=== PATIENT | female | born 1930 | race Caucasian/White ===

== ENCOUNTER 2017-03-02 14:06 | Emergency (ER) | payer MEDICARE, BC ==
[~2017-03-02] VITALS: Ht 157.5 cm; Wt 74.0 kg
[~2017-03-02 14:06] MED LIST: ALDA2525 PO; AMLO5 PO; ASPI-110 PO; ESTR.625 PO; NEXI40CA PO
[2017-03-02 14:10] VITALS: BP 122/89; PULSE 97; RESP 16; TEMP 98.2; O2SAT 98
[2017-03-02] MEDS ORDERED: BACL20TA PO (14:21)
[2017-03-02] MEDS ORDERED: KETOROLAC TROMETHAMINE 60 MG/2 ML (IM) VIAL IM ONE (14:45)
--- NOTE | 2017-03-02 14:47 | PD ---
HPI Chief Complaint: Back/ Neck Pain or Injury Time Seen by Provider: 14:25 Travel History International Travel<30 days: No Contact w/Intl Traveler<30days: No Traveled to known affect area: No History of Present Illness HPI 86-year-old female with history of sciatica presents to emergency department for right-sided low back pain radiating down into the right leg. She reports similar episodes with sciatic flare. She reports that the pain is localized to the left low back and radiates down into the left buttocks to the posterior knee. She denies fever, incontinence, difficulty walking, or numbness and tingling in the extremity.. She reports that her sciatica pain is usually treated with diclofenac but her doctor recently prescribed baclofen and she stopped taking the diclofenac and the pain worsened. She reports she was not instructed to stop the diclofenac she was just confused she was allowed to take that with her baclofen. She reports she contacted her doctor's office when instructed her to come to the emergency room for a shot of Toradol. PFSH Past Medical History Medical History: Denies Significant Hx GERD: Yes Hypertension: Yes Musculoskeletal: Yes (SCIATICA) Influenza Vaccination: Yes Social History Alcohol Use: Yes (DAILY) Tobacco Use: No Substance Use: No Allergies-Medications (Allergen,Severity, Reaction): Coded Allergies: Codeine (Verified Allergy, Unknown, Nausea/Vomiting, 03/02/17) Penicillin (Verified Allergy, Unknown, Rash, 03/02/17) Sulfa (Verified Allergy, Unknown, Rash, 03/02/17) Reported Meds & Prescriptions Reported Meds & Active Scripts Active Reported Baclofen 20 Mg Tab 20 Mg PO HS Aspirin 81 (Aspirin) 81 Mg Tabdr 81 Mg PO DAILY Norvasc (Amlodipine Besylate) 5 Mg Tab 5 Mg PO DAILY Aldactazide (HCTZ/Spironolactone) 25-25 Mg Tab 1 Tab PO DAILY Premarin (Estrogens Conjugated) 0.625 Mg Tab 0.625 Mg PO DAILY Nexium (Esomeprazole DR) 40 Mg Capdr 40 Mg PO DAILY Review of Systems Except as stated in HPI: all other systems reviewed are Neg Physical Exam Narrative GENERAL: Alert, well-appearing elderly female. In no acute distress SKIN: Focused skin assessment warm/dry. HEAD: Atraumatic. Normocephalic. EYES: Pupils equal and round. No scleral icterus. No injection or drainage. ENT: No nasal bleeding or discharge. Mucous membranes pink and moist. NECK: Trachea midline. No JVD. CARDIOVASCULAR: Regular rate and rhythm. No murmur appreciated. RESPIRATORY: No accessory muscle use. Clear to auscultation. Breath sounds equal bilaterally. GASTROINTESTINAL: Abdomen soft, non-tender, nondistended. Hepatic and splenic margins not palpable. MUSCULOSKELETAL: No obvious deformities. No clubbing. No cyanosis. No edema. BACK: No midline spine tenderness. Tenderness over the left lumbar paraspinous muscles. 2+ DTRs. Normal Dorsiflexion and plantarflexion. 5 out of 5 strength and large cavities. NEUROLOGICAL: Awake and alert. No obvious cranial nerve deficits. Motor grossly within normal limits. Normal speech. PSYCHIATRIC: Appropriate mood and affect; insight and judgment normal. Data Data Last Documented VS Vital Signs Date Time Temp Pulse Resp B/P Pulse Ox O2 Delivery O2 Flow Rate FiO2 03/02/17 14:10 98.2 97 16 122/89 98 MDM Medical Decision Making Medical Screen Exam Complete: Yes Emergency Medical Condition: Yes Differential Diagnosis Sciatica, lumbar strain, herniated disc, Narrative Course 86-year-old female presents emergency department for increased sciatica pain on the left side. Patient has a long-standing history of sciatic pain usually treated with diclofenac. Her doctor recently added a muscle relaxer to her pain regimen and she was somewhat confused and stopped taking the diclofenac. The pain worsened over the last 7 days after stopping the diclofenac. She reports she called her doctor stopped today and he instructed that she come in for Toradol shot. She has no warning red flag warning signs for back pain. She is ambulating. Patient will be given a shot of Toradol. Diagnosis Primary Impression: Back pain with left-sided sciatica Referrals: Primary Care Physician Disposition: 01 DISCHARGE HOME Condition: Stable Karen Barr March 02, 2017 14:47
[2017-03-04] MEDS ORDERED: DICL25 PO (12:00)
[2017-03-08] MEDS ORDERED: DICL25 PO (14:25)
[2017-03-08] MEDS ORDERED: NEXI40CA PO (14:26)
[2017-03-31] MEDS ORDERED: TRAM50TA PO (15:16)
[2017-03-31] MEDS ORDERED: GABA300C5 PO (15:16)
[2017-04-02] MEDS ORDERED: COMMODE 3-IN-11 MIS (14:23)
== END 2017-03-02 14:55 | disposition home or self-care (01) ==
LOC: PHEFT 14:06
DX: M54.32 Sciatica, left side (principal); K21.9 Gastro-esophageal reflux disease without esophagitis; I10 Essential (primary) hypertension; Z88.0 Allergy status to penicillin; Z88.2 Allergy status to sulfonamides; Z79.82 Long term (current) use of aspirin; Z79.899 Other long term (current) drug therapy
CPT/HCPCS: 96372; 99284; J1885

== ENCOUNTER 2017-03-17 06:49 | Observation (INO) | payer MEDICARE, BC ==
[~2017-03-17] VITALS: Ht 160 cm; Wt 80.0 kg
[~2017-03-17 06:49] MED LIST changes: +BACL20TA PO; +DICL25 PO
[2017-03-17] MEDS ORDERED: LACTATED RINGER'S 1000 ML IV PRN (07:15)
[2017-03-17] MEDS ORDERED: METOPROLOL TARTRATE 25 MG TAB PO PRN (07:15)
[2017-03-17] MEDS ORDERED: SODIUM CHLOR 0.9% 1000 ML INJ 1,000 ML IV SCH (07:15)
[2017-03-17] MEDS ORDERED: POVIDONE IODINE 5% (ANTISEPSIS KIT) 4 APPLICATIONS EACH NARE PRN (07:15)
[2017-03-17] MEDS ORDERED: SODIUM CHLORID 0.9% 500 ML IV PRN (07:15)
[2017-03-17] MEDS ORDERED: VANCOMYCIN HCL 1000 MG ON-CALL/NS 250 ML IV SCH ×2 (07:15)
[2017-03-17] MEDS ORDERED: CHLORHEXIDINE GLUCONATE 2 % 1 PACK (2 CLOTHS) TOPICAL PRN (07:15)
[2017-03-17] MEDS ORDERED: INSULIN HUMAN REGULAR 1,000 UNITS/10 ML VIAL SQ PRN (07:15)
[2017-03-17 07:17] VITALS: BP 142/80; PULSE 79; RESP 16; TEMP 96; O2SAT 96
--- NOTE | 2017-03-17 07:48 | EKG ---
Date Performed: 03/17/2017 Time Performed: 07:21:25 PTAGE: 86 years EKG: Sinus rhythm PROBABLE LATERAL MYOCARDIAL INFARCTION , OF INDETERMINATE AGE Nonspecific T wave changes ABNORMAL EC G NO PREVIOUS TRACING DOCTOR: Song Jacob Interpretating Date/Time 03/17/2017 07:46:50
[2017-03-17] MEDS ORDERED: ceFAZolin 2 GM PREMIX 50 ML ONE (08:14)
[2017-03-17] MEDS ORDERED: THROMBIN (TOPICAL) 5,000 UNIT VIAL ONE (08:14)
[2017-03-17] MEDS ORDERED: GENTAMICIN SULFATE 80 MG/2 ML VIAL ONE (08:15)
[2017-03-17] MEDS ORDERED: methylPREDNISolone ACETATE 40 MG/ML VIAL ONE (08:15)
[2017-03-17] MEDS ORDERED: GELFOAM SIZE 100 ONE (08:15)
[2017-03-17] MEDS ORDERED: MIDAZOLAM HCL 2 MG/2 ML VIAL ONE (09:02)
[2017-03-17] MEDS ORDERED: ARTIFICIAL TEARS OPTH OINT 3.5 APPLIC/3.5 GM TUBO ONE (09:02)
[2017-03-17] MEDS ORDERED: fentaNYL CITRATE 250 MCG/5 ML AMP ONE (09:03)
[2017-03-17] MEDS ORDERED: ACETAMINOPHEN 1000 MG/100 ML VIAL IV ONE (09:03)
[2017-03-17] MEDS: NS + KCL 20 MEQ INJ 1,000 ML IV SCH ×2 (10:48→21:35)
[2017-03-17] MEDS ORDERED: ACETAMINOPHEN 325 MG TAB PO PRN (11:00)
[2017-03-17] MEDS ORDERED: SODIUM CHLORIDE 0.9% FLUSH 5 ML FLUSH IVF PRN (11:00)
[2017-03-17] MEDS ORDERED: MORPHINE SULFATE 4 MG/ML INJ IV PUSH PRN ×2 (11:00)
[2017-03-17] MEDS ORDERED: ACETAMINOPHEN/HYDROcodone 325 MG/10 MG TAB PO PRN ×2 (11:00)
[2017-03-17] MEDS ORDERED: BUPIVACAINE LIPOSOME PF 1.3% 20 ML VIAL INFIL ONE (11:06)
[2017-03-17] MEDS ORDERED: DO NOT ADM ANY ANTICOAGULANT DRUGS PRN (11:11)
[2017-03-17] MEDS ORDERED: NEOSTIGMINE 3 MG/3 ML SYR IV ONE (11:15)
[2017-03-17] MEDS ORDERED: ePHEDrine/NS 25 MG/5 ML SYR IV ONE (11:15)
[2017-03-17] MEDS ORDERED: PROPOFOL 200 MG/20 ML AMP IV ONE (11:15)
[2017-03-17] MEDS ORDERED: PHENYLEPH/NS 1000 MCG/10 ML SYR IV ONE (11:16)
[2017-03-17] MEDS ORDERED: ONDANSETRON HCL 4 MG/2 ML VIAL IV PUSH ONE (11:16)
[2017-03-17] MEDS ORDERED: LACTATED RINGER'S 1000 ML INJ 1,000 ML IV ONE (11:16)
[2017-03-17] MEDS ORDERED: *morphine SULFATE 8 MG/ML PERIprocedure ONLY ONE ×3 (11:25→13:46)
[2017-03-17] MEDS ORDERED: *MEPERIDINE 25 MG INJ VIAL PERIprocedural Use ONLY ONE (11:37)
--- NOTE | 2017-03-17 12:33 | PD.OP ---
Operative Report Date of Surgery: Mar 17, 2017 Preoperative Diagnosis: Lumbar spinal stenosis Postoperative Diagnosis: Lumbar spinal stenosis Procedure: Left L4-5 decompressive laminectomy, mesiofacetectomy, foraminotomy, microsurgical resection of the disk Anesthesia: general Surgeon: Jonh Smith Pipe Organ Tuner And Repairer(s): Kye Operation and Findings: INDICATIONS FOR THE SURGICAL PROCEDURE Ms Owens is a 86 year-old female who presented with intractable back pain and marino evidence of left L5 lower extremity radiculopathy. He has failed maximum nonsurgical management including multiple modalities of conservative treatment as well as pain management interventions by an interventional pain specialist. A surgical decompression was indicated as a last resort. The [id number] details of the procedure, indications, alternatives, risks and potential complications were fully discussed with the patient. The patient fully understood. All the questions were answered. No guarantees were given. The patient voiced requesting the procedure and provided informed consents. The patient was offered the alternative of delaying the procedure and continuing with nonsurgical management. DETAILS OF THE SURGICAL PROCEDURE After the induction of general anesthesia, endotracheal intubation was performed. A Hinkle catheter, bilateral CHARLY hose and sequential compression devices were placed and kept throughout the procedure. The patient was positioned prone on a Jose M table over a Sven frame. All pressure points were carefully padded with eggcrate mattress. The eyes were tapped shut after ointment was applied by the anesthesiologist to prevent corneal abrasion. A Obdulia hugger was placed over the expossed lower body to maintain control of the core body temperature. The lower lumbar region was prepped and draped in the usual sterile fashion. A spinal needle was placed on the paraspinal muscle and a cross-table lateral x-ray performed with a C-arm. The skin incision was made over the spinous process of L4 and L5 along the midline. Small subcutaneous bleeders were controlled with a bipolar. The subcutaneous tissue and thoracolumbar fascia was opened with the Bovie and the spinous process of L4 and L5 were exposed. Then, using a Marin elevator and a Bovie a subperiosteal dissection was performed over the left spinous process lamina and facet at L4 and L5 on the left side. A microdiscectomy self- retaining retractor was placed and an instrument was placed underneath the lamina of L4, and another cross-table lateral x-ray performed for radiological confirmation of the level. At this point in the procedure the operating microscope was draped in the usual sterile fashion and brought to the field. The rest of the surgical procedure was performed using microsurgical dissection technique with exception of the closure. Once the level was confirmed, a TPS drill brought to the field and a hemilaminectomy was performed at L4-L5 on the left side in standard fashion using the AM-8 drill bit, exposing the ligamentum flavum. The superior free border of the ligamentum flavum was from the dura with a ligament dissector and the ligamentum flavum was carefully removed with a 3 mm thin footplate Kerrison. The ligament Flavum and facets were significantly hypertrophic resulting on mass effect on the dural sac. Then, the medial aspect of the facet was drilled and undermined and the exiting L5 nerve root was identified and followed towards the foramen. A foraminotomy was performed with a 3 mm Kerrison. Then, the TPS drill was used to undermine the base of the spinous process, in order to carry out the decompression across the midline to the contralateral side. The ligamentum flavum across the midline was dissected from the dura with a ligament dissector and carefully removed with a 3 mm thin footplate Kerrison. An appropriate decompression of the dural sac and nerve root was achieved. Epidural veins located laterally to the dural sac were carefully coagulated with a bipolar and incised with microscissors. Gentle medial retraction of the dural sac allowed inspection of the disc space. The patient had a broad-based disc protusion which combined with the hypertrophic facets and ligamentun flavum was producing significant stenosis with mass effect on the dural sac and nerve root. Microdiscectomy was then deemed necessary. The annulus fibrosus was thoroughly coagulated with the bipolar and incised with a #10 blade. Then, a microdiscectomy was carried out in the standard fashion using straight and up-biting pituitary forceps. A reverse angle curet was used to push the extruded disc fragments into the disc space so they could be removed with pituitary forceps. Special attention was placed on the middle nerve root and axilla of the nerve root where disc fragments were found, which were carefully dissected and pushed into the disc space and removed with the Kerrison. A good decompression was achieved. The disc space was then irrigated with antibiotic solution. The incision was then thoroughly irrigated with antibiotic solution and hemostasis secured with the bipolar. A Valsalva maneuver failed to show any cerebrospinal fluid leak or bleeding. The incision was irrigated and closed in layers. 0 Vicryl with interrupted sutures was used to close the thoracolumbar fascia and superficial fascia. The subcutaneous tissue was closed with 3-0 Vicryl. The skin was closed with 4-0 running subcuticular Vicryl. Dermabond was applied to the skin. At the end of the procedure, the sponge, needle and instrument counts were all correct. Estimated blood loss was less than 50 cc. No blood transfusion was given. No intraoperative complications occurred. The patient received prophylactic antibiotics. The patient was then extubated and transferred to the recovery room in stable condition. John Smith MD Mar 17, 2017 12:33
[2017-03-17] MEDS ORDERED: *ONDANSETRON 4 MG VIAL PERIprocedural Use ONLY ONE (14:16)
--- NOTE | 2017-03-17 14:30 | RADRPT ---
EXAM DATE/TIME: 03/17/2017 09:37 [facility] COMPARISON: No previous studies available for comparison. INDICATIONS : Level Localization L4,L5 for laminectomy. MEDICAL HISTORY : None. SURGICAL HISTORY : None. ENCOUNTER: Initial ACUITY: 1 day PAIN SCORE: Non-responsive. LOCATION: Lumbar spine. FINDINGS: Surgical instruments are noted posteriorly at the L4-L5 level. Grade I anterolisthesis of L4 in rela tion to L5 is noted. CONCLUSION: Surgical instruments are noted posteriorly at the L4-L5 level. Grade I anterolisthesis of L4 in rela tion to L5 is noted. Bao Mancia MD on March 17, 2017 at 14:25 Board Certified Radiologist. This report was verified electronically.
[2017-03-17 16:00] VITALS: BP 121/64; PULSE 85; RESP 18; TEMP 96.1; O2SAT 98
[2017-03-17] MEDS: ceFAZolin 2 GM PREMIX 50 ML IV SCH (18:00)
[2017-03-17] MEDS: ACETAMIN 325 MG/BUTALBITAL 50 MG/CAFFEINE 40 MG TAB PO PRN (18:38)
[2017-03-17 20:00] VITALS: BP 125/65; PULSE 83; RESP 16; TEMP 96.5; O2SAT 97
[2017-03-17 20:51] VITALS: O2SAT 97
[2017-03-17] MEDS: SODIUM CHLORIDE 0.9% FLUSH 5 ML FLUSH IVF SCH (21:00)
[2017-03-17] MEDS ORDERED: DICLOFENAC SODIUM 75 MG DELAYED RELEASE TAB PO PRN (21:00)
[2017-03-17] MEDS: DOCUSATE SODIUM 100 MG CAP PO SCH (21:35)
[2017-03-17] MEDS: BACLOFEN 20 MG TAB PO SCH (21:53)
[2017-03-18] VITALS (9 sets, daily range): BP systolic 100–169; BP diastolic 54–78; PULSE 71–87; RESP 15–28; TEMP 95.8–97.8; O2SAT 92–99
[2017-03-18] MEDS: ceFAZolin 2 GM PREMIX 50 ML IV SCH ×2 (01:31→10:22)
[2017-03-18] MEDS: ACETAMIN 325 MG/BUTALBITAL 50 MG/CAFFEINE 40 MG TAB PO PRN ×2 (04:27→20:22)
[2017-03-18] MEDS: NS + KCL 20 MEQ INJ 1,000 ML IV SCH ×2 (05:24→10:48)
[2017-03-18] MEDS: SODIUM CHLORIDE 0.9% FLUSH 5 ML FLUSH IVF SCH ×2 (09:00→20:21)
[2017-03-18] MEDS ORDERED: NON-FORMULARY DRUG (Esomeprazole DR (Nexium) 40 MG) PO SCH (09:00)
--- NOTE | 2017-03-18 10:03 | HHI.DCPOC ---
Discharge Care Plan Diagnosis: (1) S/P lumbar laminectomy Goals to Promote Your Health * To prevent worsening of your condition and complications * To maintain your health at the optimal level Directions to Meet Your Goals Take your medications as prescribed Follow your dietary instruction Follow activity as directed Keep your appointments as scheduled Take your immunizations and boosters as scheduled If your symptoms worsen call your PCP, if no PCP go to Urgent Care Center or Emergency Room Smoking is Dangerous to Your Health. Avoid second hand smoke Call the 24-hour hour crisis hotline for domestic abuse at Desi Nunez Mar 18, 2017 10:03
--- NOTE | 2017-03-18 10:04 | HHI.DS ---
Discharge Summary Admission Date Mar 17, 2017 at 10:50 Discharge Date: Mar 19, 2017 Admitting Diagnosis s/p lumbar laminectomy (1) S/P lumbar laminectomy ICD Code: Z98.890 (2) Chest pain ICD Code: R07.9 Brief History Ms Owens is a 86 year-old female who presented with intractable back pain and marino evidence of left L5 lower extremity radiculopathy. She has failed maximum nonsurgical management including multiple modalities of conservative treatment as well as pain management interventions by an interventional pain specialist. A surgical decompression was indicated as a last resort. Imaging Last Impressions Lower Extremity Ultrasound 03/18/17 1630 Signed Impressions: Service Date/Time: , March 18, 2017 16:36 - CONCLUSION: 1. No DVT identified. 2. 1.3 x 1.6 x 2.5 cm Napier's cyst within the popliteal fossa. Yoel Byrd MD Chest X-Ray 03/18/17 0000 Signed Impressions: Service Date/Time: March 14:16 - CONCLUSION: 1. Chronic appearing interstitial changes in the pulmonary parenchyma. No acute abnormality. Yoel Byrd MD Lumbar Spine X-Ray 03/17/17 0000 Signed Impressions: Service Date/Time: Friday, March 17, 2017 09:37 - CONCLUSION: Surgical instruments are noted posteriorly at the L4-L5 level. Grade I anterolisthesis of L4 in relation to L5 is noted. Bao Mancia MD Hospital Course Ms. Owens underwent a left L4-5 decompressive laminectomy, mesiofacetectomy, foraminotomy, microsurgical resection of the disk Mar 17, 2017. Her surgery went without complications. POD 1 she developed acute chest pain and difficulty breathing. An EKG showed ischemic changes. She was Halicated and transferred to the [facility]. Her chest pain resolved following aspirin and SL Nitro. She was evaluated by the sales agent food vending service and her Conference Coordinator and was cleared for discharge. Pt Condition on Discharge: Stable Discharge Disposition: Discharge Home Discharge Instructions DIET: Follow Instructions for: Heart Healthy Diet ACTIVITIES You can perform: Weight Bearing As Brandin ADDITIONAL Activity Instructio: Avoid strenuous activities, heavy lifting, overhead activities, repetitive bending, twisting, pushing, pulling or any activities which might result in stress over the spine. Avoid situtation that will put at risk for falls. Use assistive device as needed for walking. Wear lumbar brace when out of bed. Follow up Referrals: Cardiology - 1 Week PCP Follow-up - 2-3 Days New Medications: Metoprolol Tartrate (Metoprolol Tartrate) 25 Mg Tab 12.5 MG PO Q12HR #60 TAB Nitroglycerin SL (Nitrostat SL) 0.3 Mg Subl 0.3 MG SL Q5M PRN CHEST PAIN #30 TAB Continued Medications: Amlodipine (Norvasc) 5 Mg Tab 5 MG PO DAILY Blood Pressure Management #30 Ref [address] (Aspirin 81) 81 Mg Tabdr 81 MG PO DAILY Ref 0 TAB Baclofen (Baclofen) 20 Mg Tab 20 MG PO HS Muscle Spasm Ref [address] (Diclofenac Sodium DR) 25 Mg Tabdr 75 MG PO BID PRN BACK PAIN #90 Ref [address] (Nexium) 40 Mg Capdr 40 MG PO DAILY #30 Ref 0 CAP Estrogens, Conjugated (Premarin) 0.625 Mg Tab 0.625 MG PO DAILY Estrogen Supplements #30 Ref 0 TAB Spironolactone-Hydrochlorothiazide (Aldactazide) 25-25 Mg Tab 1 TAB PO DAILY #30 Ref 0 TAB Desi Nunez Mar 18, 2017 10:04
[2017-03-18] MEDS: amLODIPine BESYLATE 5 MG TAB PO SCH (10:20)
[2017-03-18] MEDS: DOCUSATE SODIUM 100 MG CAP PO SCH ×2 (10:20→20:22)
[2017-03-18] MEDS: ESTROGENS CONJUGATED 0.625 MG TAB PO SCH (10:20)
[2017-03-18] MEDS: PANTOPRAZOLE SOD 40 MG DELAYED RELEASE TAB PO SCH (10:21)
[2017-03-18] MEDS: SPIRONOLACTONE/HCTZ 25 MG/25 MG TAB PO SCH (10:22)
--- NOTE | 2017-03-18 13:11 | HHI.NSPN ---
Note Status Status: Progress Note Labs, Micro, & Vital Signs Results Date Time Temp Pulse Resp B/P Pulse Ox O2 Delivery O2 Flow Rate FiO2 03/18/17 10:53 92 21 03/18/17 08:00 96.0 84 18 100/54 97 03/18/17 04:00 96.5 71 20 123/68 99 03/18/17 00:00 96.0 80 18 120/68 97 03/17/17 20:51 97 Nasal Cannula 4.00 03/17/17 20:00 96.5 83 16 125/65 97 03/17/17 16:00 96.1 85 18 121/64 98 03/17/17 15:00 92 18 109/56 96 Nasal Cannula 3 03/17/17 14:00 79 12 109/56 92 Nasal Cannula 3 03/18/17 07:00 Intake Total 2667 ml Output Total 750 ml Balance 1917 ml Constitutional Vital Signs Date Time Temp Pulse Resp B/P Pulse Ox O2 Delivery O2 Flow Rate FiO2 03/18/17 10:53 92 21 03/18/17 08:00 96.0 84 18 100/54 97 03/18/17 04:00 96.5 71 20 123/68 99 03/18/17 00:00 96.0 80 18 120/68 97 03/17/17 20:51 97 Nasal Cannula 4.00 03/17/17 20:00 96.5 83 16 125/65 97 03/17/17 16:00 96.1 85 18 121/64 98 03/17/17 15:00 92 18 109/56 96 Nasal Cannula 3 03/17/17 14:00 79 12 109/56 92 Nasal Cannula 3 03/18/17 07:00 Intake Total 2667 ml Output Total 750 ml Balance 1917 ml Plan Plan Remarks stat ekg chest xray continuous pulse ox cont IS every hour, Desi Nunez Mar 18, 2017 13:11
[2017-03-18] MEDS ORDERED: RESP: ALBUTEROL 2.5 MG/3 ML NEB (PRN) INH (13:15)
--- NOTE | 2017-03-18 14:12 | HHI.NSPN ---
(Desi Nunez) Note Status Status: Progress Note (Desi Nunez) Interval History Interval History Ms. Owens is a 86 y/o female s/p lumbar laminectomy and microdiscectomy on . Her surgery went well without complications. She was seen this morning during morning rounds and was doing well and orders placed for discharge. Later this morning, her nurse phone me with report of patient c/o chest pain and difficulty breathing. Her vitals taken was stable with O2 sats of 98%. A stat EKG ordered as well as CXR. Discharge held. (Desi Nunez) Labs, Micro, & Vital Signs Results Date Time Temp Pulse Resp B/P Pulse Ox O2 Delivery O2 Flow Rate FiO2 03/18/17 10:53 92 21 03/18/17 08:00 96.0 84 18 100/54 97 03/18/17 04:00 96.5 71 20 123/68 99 03/18/17 00:00 96.0 80 18 120/68 97 03/17/17 20:51 97 Nasal Cannula 4.00 03/17/17 20:00 96.5 83 16 125/65 97 03/17/17 16:00 96.1 85 18 121/64 98 03/17/17 15:00 92 18 109/56 96 Nasal Cannula 3 03/18/17 07:00 Intake Total 2667 ml Output Total 750 ml Balance 1917 ml Constitutional Vital Signs Date Time Temp Pulse Resp B/P Pulse Ox O2 Delivery O2 Flow Rate FiO2 03/18/17 10:53 92 21 03/18/17 08:00 96.0 84 18 100/54 97 03/18/17 04:00 96.5 71 20 123/68 99 03/18/17 00:00 96.0 80 18 120/68 97 03/17/17 20:51 97 Nasal Cannula 4.00 03/17/17 20:00 96.5 83 16 125/65 97 03/17/17 16:00 96.1 85 18 121/64 98 03/17/17 15:00 92 18 109/56 96 Nasal Cannula 3 03/18/17 07:00 Intake Total 2667 ml Output Total 750 ml Balance 1917 ml (Desi Nunez) Review of Systems/Exam Exam Exam taken when patient was seen during morning rounds. Ms. Owens is alert, awake and oriented to time, place and person. Speech is fluent. No acute distress. Sitting up in chair with lumbar brace. Cranial nerve examination: pupils to be equal, round and reactive to light. Facial motor symmetrical. Gross hearing appears intact. Neck is soft and supple with a good range of motion without pain. Motor: moving all four extremities well (Desi Nunez) Medications Current Medications Current Medications Medications (Trade) Dose Ordered Sig/Raysa Route PRN Reason Start Time Stop Time Status Last Admin Dose Admin Lactated Ringer's 1,000 ml @ 30 mls/hr Q24H PRN IV SEE LABEL COMMENTS 03/17/17 07:15 03/20/17 07:14 03/17/17 07:30 Sodium Chloride 500 ml @ 30 mls/hr [id number] PRN IV SEE LABEL COMMENTS 03/17/17 07:15 03/20/17 07:14 Sodium Chloride 1,000 ml @ 30 mls/hr Q24H IV 03/17/17 07:15 Potassium Chloride/Sodium Chloride (NS + KCl 20 Meq Inj) 1,000 ml @ 100 mls/hr Q10H IV 03/17/17 10:48 03/17/17 21:35 IV Flush (NS Flush) 2 ml UNSCH PRN IVF FLUSH AFTER USING IV ACCESS 03/17/17 11:00 IV Flush (NS Flush) 2 ml BID IVF 03/17/17 21:00 03/18/17 09:00 Docusate Sodium (Colace) 100 mg BID PO 03/17/17 21:00 03/18/17 10:20 Pantoprazole Sodium (Protonix) 40 mg DAILY PO 03/18/17 09:00 03/18/17 10:21 Acetaminophen/ Hydrocodone Bitart ([place] 10-325 Mg) 1 tab Q4H PRN PO PAIN SCALE 1 TO 5 03/17/17 11:00 Acetaminophen/ Hydrocodone Bitart ([place] 10-325 Mg) 2 tab Q4H PRN PO PAIN SCALE 6 TO 10 03/17/17 11:00 Morphine Sulfate (Morphine Inj) 2 mg Q2H PRN IV PUSH PAIN SCALE 1 TO 6 03/17/17 11:00 Morphine Sulfate (Morphine Inj) 4 mg Q2H PRN IV PUSH PAIN SCALE 7 TO 10 03/17/17 11:00 Acetaminophen (Tylenol) 650 mg Q4H PRN PO TEMPERATURE > 101.5 F 03/17/17 11:00 Amlodipine Besylate (Norvasc) 5 mg DAILY PO 03/18/17 09:00 03/18/17 10:20 Baclofen (Lioresal) 20 mg HS PO 03/17/17 21:00 03/17/17 21:53 Diclofenac Sodium (Voltaren Dr) 75 mg BID PRN PO BACK PAIN 03/17/17 21:00 Estrogens Conjugated (Premarin) 0.625 mg DAILY PO 03/18/17 09:00 03/18/17 10:20 HCTZ/ Spironolactone (Aldactazide 25-25 Mg) 1 tab DAILY PO 03/18/17 09:00 03/18/17 10:22 Acetaminophen/ Butalbital/ Caffeine (Fioricet 325-50-40) 1 tab Q8H PRN PO MIGRAINE 03/17/17 18:30 03/18/17 04:27 (Desi Nunez) Medical Decision Making MDM Remarks 86 y/o female s/p lumbar laminectomy and microdiscectomy on 03/17/17 acute chest pain and shortness of breath, (Desi Nunez) Plan Plan Remarks stat ekg chest xray continuous pulse ox cont IS every hour hold discharge, consult to medical physician per Dr. Smith request (Desi Nunez) Attending Statement The exam, history, and the medical decision-making described in the above note were completed with the assistance of the mid-level provider. I reviewed and agree with the findings presented. I attest that I had a [id number] encounter with the patient on the same day, and personally performed and documented my assessment and findings in the medical record. (John Smith MD) Desi Nunez Mar 18, 2017 14:12 John Smith MD Mar 19, 2017 16:24
[2017-03-18] MEDS ORDERED: ASPIRIN 81 MG CHEW TAB CHEW ONE (14:15)
--- NOTE | 2017-03-18 14:27 | RADRPT ---
EXAM DATE/TIME: 03/18/2017 14:16 [facility] COMPARISON: SPINE LUMBAR LATERAL ONLY, March 17, 2017, 9:37. INDICATIONS : Chest pain. MEDICAL HISTORY : None. SURGICAL HISTORY : None. ENCOUNTER: Initial ACUITY: 1 day PAIN SCORE: 1/10 LOCATION: Bilateral chest FINDINGS: The examination demonstrates chronic appearing interstitial changes. The heart is normal in size. The mediastinal contours are within normal limits. The bony structures are grossly intact. There are deg enerative changes in thoracic spine. CONCLUSION: 1. Chronic appearing interstitial changes in the pulmonary parenchyma. No acute abnormality. Yoel Byrd MD on March 18, 2017 at 14:24 Board Certified Radiologist. This report was verified electronically.
[2017-03-18] MEDS ORDERED: NITROGLYCERIN 0.3 MG SL 100 TABS/BTL SL PRN ×2 (14:30→15:00)
[2017-03-18] MEDS ORDERED: NITROGLYCERIN 0.4 MG SL 25 TABS/BTL SL ONE (14:35)
--- NOTE | 2017-03-18 14:58 | PD.CONS ---
[facility] Service Critical Care Medicine Consult Requested By Dr. Smith Reason for Consult Acute onset chest pain, shortness of breath Ischemic changes on EKG Primary Care Physician Non-Staff History of Present Illness Patient is a 86-year-old female with past medical history significant for lumbar spinal stenosis, "leaky"cardiac valve, hypertension dyslipidemia who was admitted yesterday to Dr. Smith service and underwent Left L4-5 decompressive laminectomy, mesiofacetectomy, foraminotomy, microsurgical resection of the disk. Patient developed acute onset central chest pain today, no radiation. EKG showed lateral ischemic changes but no acute ST elevation. Cardiac enzymes are pending at this time. Patient received aspirin and one Nitro and at the time of my evaluation in the ICU, she did not have chest pain. Gives no cardiac history except "leaky valve" Review of Systems ROS Limitations: Other (as per HPI) Past Family Social History Allergies: Coded Allergies: Codeine (Verified Allergy, Unknown, Nausea/Vomiting, 03/17/17) Penicillin (Verified Allergy, Unknown, Rash, 03/17/17) Sulfa (Verified Allergy, Unknown, Rash, 03/17/17) Past Medical History Lumbar spinal stenosis Hypertension Dyslipidemia Valvulopathy Past Surgical History s/p lumbar laminectomy and microdiscectomy on 03/17/17 ERCP with stone removal from [facility] Jul 2016 Hysterectomy Cholecystectomy Reported Medications Aspirin Norvasc Spironolactone/hydrochlorothiazide Nexium Diclofenac Baclofen Conjugated estrogen Active Ordered Medications Reviewed Family History Noncontributory Social History Drinks 1-2 beers daily No tobacco use Physical Exam Vital Signs Vital Signs Date Time Temp Pulse Resp B/P Pulse Ox O2 Delivery O2 Flow Rate FiO2 03/18/17 10:53 92 21 03/18/17 08:00 96.0 84 18 100/54 97 03/18/17 04:00 96.5 71 20 123/68 99 03/18/17 00:00 96.0 80 18 120/68 97 03/17/17 20:51 97 Nasal Cannula 4.00 03/17/17 20:00 96.5 83 16 125/65 97 03/17/17 16:00 96.1 85 18 121/64 98 03/17/17 15:00 92 18 109/56 96 Nasal Cannula 3 Physical Exam GENERAL: Alert, well-appearing elderly female. In mild distress SKIN: Warm HEAD: Atraumatic. Normocephalic. EYES: Pupils equal and round. No scleral icterus. ENT: No nasal bleeding or discharge. Mucous membranes pink and moist. NECK: Trachea midline. No JVD. CARDIOVASCULAR: Regular rate and rhythm. No murmur appreciated. RESPIRATORY: Clear to auscultation. Breath sounds equal bilaterally. GASTROINTESTINAL: Abdomen soft, non-tender, nondistended. Hepatic and splenic margins not palpable. MUSCULOSKELETAL: No obvious deformities. No clubbing. No cyanosis. No edema. BACK: Surgical incision C/D/I NEUROLOGICAL: Awake and alert. Motor grossly within normal limits. Normal speech. Laboratory Pending Imaging CXR No acute findings Septic Shock Reassessment Heart: Regular rate and rhythm Lungs: Clear Skin: Warm Peripheral Pulses: Bounding Right Radial Bounding Left Radial Assessment and Plan Assessment and Plan NEURO: Lumbar spinal stenosis s/p Left L4-5 decompressive laminectomy, microsurgical resection of the disk. -Postop pain control with [place] and morphine -Postop management per Dr. Smith RESP: -Nasal cannula oxygen as needed -DuoNeb every 6 hours when necessary -Check venous Doppler of bilateral lower extremity. -No clinical evidence of pulmonary embolus CV: Chest pain, rule out ACS Hypertension by history Dyslipidemia -Chest pain was improved with and aspirin. EKG shows lateral ischemic changes no previous EKG for comparison -Check stat cardiac enzymes, 2-D echo -Cardiology consult with Dr. Bell pending, discussed with Dr. heck who is covering -Continue home meds Norvasc and spironolactone/hydrochlorothiazide -Continue aspirin 81 mg daily and when necessary nitroglycerin -Start Lipitor 10 mg daily GI: -Cardiac diet -Protonix : -Monitor renal function closely. ID: -Perioperative antibiotics per Dr. Smith HEME: -Monitor CBC, CMP, coags ENDO: -Replace electrolytes per protocol PROPH: -Bilateral lower extremity SCDs. Lovenox 40 mg subcutaneous daily. Protonix 40 mg po daily LINES: Utilize peripheral IVs, central line if needed Level 3 New Consult Code Status Full Discussed Condition With Enid Smith and Barry Valenzuela MD Mar 18, 2017 14:57
[2017-03-18 15:13] LABS: BLOOD GAS BASE EXCESS 4.8 mmol/L (-2-2); BLOOD GAS CARBOXYHEMOGLOBIN 1.2 % (0-4); BLOOD GAS HCO3 28 mmol/L (22-26); BLOOD GAS METHEMOGLOBIN 0.9 % (0-2); BLOOD GAS O2 HGB SATURATION 95 % (90-100); BLOOD GAS OXYGEN CONTENT 17.7 Vol % (12.0-20.0); BLOOD GAS PCO2 39 mmHg (38-42); BLOOD GAS PO2 87 mmHg (61-120); BLOOD GAS TOTAL HGB 13.2 G/DL (12.0-16.0); CRITICAL VALUE NO; DRAW SITE LT RADIAL; LITER FLOW 2 L/M; NUMBER OF ARTERIAL PUNCTURES 1; OXYGEN DEVICE NASAL CANNULA; STAT YES; TEMP CORR TO 98.6; ULNAR PULSE PRESENT
[2017-03-18 15:53] LABS: HEMATOCRIT 40.8 % (35.0-46.0); MEAN CELL VOLUME 92.9 FL (80.0-100.0); MEAN CORPUSCULAR HEMOGLOBIN 31.1 PG (27.0-34.0); MEAN CORPUSCULAR HGB CONC 33.5 % (32.0-36.0); PLATELET COUNT 344 TH/MM3 (150-450); RED BLOOD COUNT 4.39 MIL/MM3 (4.00-5.30); RED CELL DISTRIBUTION WIDTH 13.4 % (11.6-17.2); REVIEW FLAG FINAL; WHITE BLOOD COUNT 14.7 TH/MM3 (4.0-11.0)
[2017-03-18 16:23] LABS: ALT (GPT) 34 U/L (10-53); ANION GAP 7 MEQ/L (5-15); AST (GOT) 22 U/L (15-37); BICARBONATE 32.4 MEQ/L (21.0-32.0); BLOOD UREA NITROGEN 11 MG/DL (7-18); CHLORIDE 99 MEQ/L (98-107); GLOMERULAR FILTRATION RATE 90 ML/MIN (>89); POTASSIUM 3.8 MEQ/L (3.5-5.1); SODIUM (NA) 138 MEQ/L (136-145)
[2017-03-18 16:24] LABS: CREATINE KINASE 123 U/L (26-192)
--- NOTE | 2017-03-18 16:24 | HHI.PR ---
Addendum To [facility] Progress Not Reason for addendum: Corrected documentation (Medical Consult provided by [facility] [employer]. Will accept TOS if needed then transfered out of ICU.) Yoel Venegas MD Mar 18, 2017 16:24
[2017-03-18 16:25] LABS: ALKALINE PHOSPHATASE 74 U/L (45-117); TOTAL BILIRUBIN ADULT 0.3 MG/DL (0.2-1.0)
[2017-03-18 16:36] LABS: CKMB 2.9 NG/ML (0.5-3.6)
--- NOTE | 2017-03-18 17:15 | RADRPT ---
EXAM DATE/TIME: 03/18/2017 16:36 [place] COMPARISON: No previous studies available for comparison. INDICATIONS : Bilateral leg swelling and pain. MEDICAL HISTORY : Hypertension. Gastroesophageal reflux disease. Osteoporosis. Cardiac leaky valves. Hyperlipidemia. Mu mps. Sciatica. Skin cancer. Anticoagulant therapy, Aspirin 81mg. SURGICAL HISTORY : Cholecystectomy.Hysterectomy. Cataract extraction. Bladder. Breast biopsy. ENCOUNTER: Initial ACUITY: 1 day PAIN SCORE: 4/10 LOCATION: Bilateral leg. TECHNIQUE: Venous ultrasound of the left and right leg was performed from the inguinal ligament to the proximal calf. Real-time, color Doppler and spectral tracing, compression and augmentation techniques were us ed. FINDINGS: RIGHT LEG: There is normal compressibility of the deep venous system from the inguinal region to the proximal ca lf. No echogenic clot is seen in the lumen of the common femoral, femoral, popliteal, and posterior tibial veins. There is a normal response of the venous system to proximal and distal augmentation an d respiration. The examination does demonstrate a Napier's cyst in the right popliteal fossa measuring 1.3 x 1.6 x 2.5 cm. LEFT LEG: There is normal compressibility of the deep venous system from the inguinal region to the proximal ca lf. No echogenic clot is seen in the lumen of the common femoral, femoral, popliteal, and posterior tibial veins. There is a normal response of the venous system to proximal and distal augmentation an d respiration. CONCLUSION: 1. No DVT identified. 2. 1.3 x 1.6 x 2.5 cm Napier's cyst within the popliteal fossa. Yoel Byrd MD on March 18, 2017 at 17:12 Board Certified Radiologist. This report was verified electronically.
[2017-03-18] MEDS: THIAMINE HCL 100 MG TAB PO SCH (18:00)
[2017-03-18] MEDS ORDERED: ENOXAPARIN SODIUM 40 MG/0.4 ML SYRINGE SQ SCH (20:00)
[2017-03-18] MEDS: BACLOFEN 20 MG TAB PO SCH (20:22)
[2017-03-18] MEDS ORDERED: ATORVASTATIN 10 MG TAB PO SCH (21:00)
[2017-03-18 21:47] LABS: CREATINE KINASE 95 U/L (26-192)
[2017-03-19] VITALS (9 sets, daily range): BP systolic 87–153; BP diastolic 52–87; PULSE 66–96; RESP 14–29; TEMP 97.6–98; O2SAT 97–100
[2017-03-19] MEDS: NS + KCL 20 MEQ INJ 1,000 ML IV SCH ×2 (02:48→12:48)
[2017-03-19 04:40] LABS: CREATINE KINASE 80 U/L (26-192)
--- NOTE | 2017-03-19 05:51 | MB ---
cc: [facility] DATE OF CONSULTATION 03/18/2017 HISTORY OF PRESENT ILLNESS Ms. Owens is an 86-year-old white female with history of recent L4-5 decompressive laminectomy, facetectomy, foraminotomy and microsurgical disk resection. She developed mid-substernal chest pressure without radiation associated with shortness of breath earlier today. Her pain later moved to the upper substernal area. This lasted for a total of about 45 minutes. She was found to have lateral ST depression. She was given aspirin, nitroglycerin and the pain subsequently subsided. She has not had any recurrent pain. She is currently feeling much better. She was transferred to the ICU for observation. Her enzymes are so far unremarkable. PAST MEDICAL HISTORY Positive for - 1. Mitral and tricuspid vegetation. 2. Carotid stenosis. 3. Hypertension. 4. Dyslipidemia. 5. Gastroesophageal reflux disease. 6. History of lumbar spinal stenosis. 7. Surgery for skin cancer. 8. Cholecystectomy. 9. Hysterectomy. 10. Breast biopsy. MEDICATIONS AT HOME 1. Aspirin. 2. Norvasc. 3. Aldactazide. 4. Nexium. 5. Premarin. 6. Tramadol. 7. Diclofenac. 8. Tylenol. 9. Baclofen. ALLERGIES SULFA. CODEINE. PENICILLIN. SOCIAL HISTORY the patient does not smoke. She drinks one to two beers daily. FAMILY HISTORY Positive for heart disease. REVIEW OF SYSTEMS Otherwise negative. PHYSICAL EXAMINATION VITAL SIGNS: Blood pressure 130/64, pulse 72 and regular. HEENT: Negative. NECK: 2+ carotid upstrokes. No bruits. LUNGS: Clear. HEART: Regular with no murmur, gallop or rub. ABDOMEN: Soft. No bruits. EXTREMITIES: Without edema. 2+ distal pulses. NEUROLOGIC: Grossly nonfocal. EKG Reviewed and showed normal sinus rhythm. Mild intraventricular conduction delay, and lateral T-wave changes. This was unchanged from the previous EKG from 03/17. Follow-up EKG again showed lateral T-wave changes. LABORATORY DATA Hemoglobin 13.7, potassium 3.8, creatinine 0.6. CK 123, CK-MB 2.9, troponin less than 0.02. DIAGNOSIS 1. Chest pain. 2. Recent cervical laminectomy. 3. Hypertension. 4. Dyslipidemia. 5. Gastroesophageal reflux disease. 6. Carotid stenosis. 7. Moderate tricuspid regurgitation. DISPOSITION Ms. Owens has had no recurrent chest pain. Her EKG shows lateral T-wave changes but this is not significantly different from previous EKGs. Her first set of enzymes is unremarkable. 1. She will be monitored in the ICU overnight. 2. I recommend to continue therapy with aspirin, atorvastatin and nitroglycerin. 3. We will obtain serial enzymes and EKGs. 4. We will follow her for Cardiology during her hospitalization. Dr. Bell, her primary surgical coordinator, will see her tomorrow. Magdy Renae MD OQ/SSB /7:07 PM /5:38 AM MTDD
[2017-03-19] MEDS: ACETAMIN 325 MG/BUTALBITAL 50 MG/CAFFEINE 40 MG TAB PO PRN (05:54)
[2017-03-19] MEDS ORDERED: PILL SPLITTER OTHER PRN (07:45)
--- NOTE | 2017-03-19 07:45 | HHI.CCPN ---
Subjective Remarks/Hospital Course Patient is a 86-year-old female with past medical history significant for lumbar spinal stenosis, "leaky"cardiac valve, hypertension dyslipidemia who was admitted yesterday to Dr. Smith service and underwent Left L4-5 decompressive laminectomy, mesiofacetectomy, foraminotomy, microsurgical resection of the disk. Patient developed acute onset central chest pain today, no radiation. EKG showed lateral ischemic changes but no acute ST elevation. Cardiac enzymes are pending at this time. Patient received aspirin and one Nitro and at the time of my evaluation in the ICU, she did not have chest pain. Gives no cardiac history except "leaky valve" SUBJ 03/19: Patient does not complains about chest pain today. But has reproducible chest wall tenderness along the left sternal border. Cardiac enzymes 3 negative. Further cardiac workup per Dr. Bell. Bilateral LE Doppler negative Objective Vital Signs Date Time Temp Pulse Resp B/P Pulse Ox O2 Delivery O2 Flow Rate FiO2 03/19/17 07:16 97 Nasal Cannula 2.00 03/19/17 06:00 96 03/19/17 04:00 97.9 21 153/87 03/18/17 10:53 21 Intake and Output 03/18/17 03/18/17 03/19/17 08:00 16:00 00:00 Intake Total 430 ml 1200 ml 120 ml Output Total 600 ml 1400 ml Balance 430 ml 600 ml -1280 ml Result Diagram: 03/18/17 1510 03/18/17 1510 Other Results Laboratory Tests Test 03/18/17 14:50 Blood Gas Puncture Site LT RADIAL Blood Gas Patient Temperature 98.6 Blood Gas HCO3 28 mmol/L (22-26) Blood Gas Base Excess 4.8 mmol/L (-2-2) Blood Gas Oxygen Saturation 95 % (90-100) Arterial Blood pH 7.47 (7.380-7.420) Arterial Blood Partial 39 mmHg (38-42) Pressure CO2 Arterial Blood Partial 87 mmHg Pressure O2 (61-120) Arterial Blood Oxygen Content 17.7 Vol % (12.0-20.0) Arterial Blood 1.2 % (0-4) Carboxyhemoglobin Arterial Blood Methemoglobin 0.9 % (0-2) Blood Gas Hemoglobin 13.2 G/DL (12.0-16.0) Oxygen Delivery Device NASAL CANNULA Blood Gas Liter Flow 2 L/M Imaging CXR No acute findings Objective Remarks GENERAL: Alert, well-appearing elderly female. SKIN: Warm HEAD: Atraumatic. Normocephalic. EYES: Pupils equal and round. No scleral icterus. ENT: No nasal bleeding or discharge. Mucous membranes pink and moist. NECK: Trachea midline. No JVD. CARDIOVASCULAR: Regular rate and rhythm. No murmur appreciated. LSB chest wall tenderness on palpation RESPIRATORY: Clear to auscultation. Breath sounds equal bilaterally. GASTROINTESTINAL: Abdomen soft, non-tender, nondistended. Hepatic and splenic margins not palpable. MUSCULOSKELETAL: No obvious deformities. No clubbing. No cyanosis. No edema. BACK: Surgical incision C/D/I NEUROLOGICAL: Awake and alert. Motor grossly within normal limits. Normal speech. A/P Assessment and Plan NEURO: Lumbar spinal stenosis s/p Left L4-5 decompressive laminectomy, microsurgical resection of the disk. -Postop pain control with [employer] and morphine -Postop management per Dr. Smith RESP: -Nasal cannula oxygen as needed -DuoNeb every 6 hours when necessary -Check venous Doppler of bilateral lower extremity. -No clinical evidence of pulmonary embolus CV: Chest pain, rule out ACS Hypertension Dyslipidemia -Chest pain was improved with and aspirin. EKG shows lateral ischemic changes no previous EKG for comparison -Serial cardiac enzymes negative, 2-D echo pending -Cardiology consult Dr. heck has seen. Primary residential caregiver is Dr. Bell. Further cardiac work up per him -Continue home meds Norvasc and spironolactone/hydrochlorothiazide. Add metoprolol 12.5 mg po BID -Continue aspirin 81 mg daily and when necessary nitroglycerin -Lipitor 10 mg daily GI: -Cardiac diet -Protonix : -Monitor renal function closely. ID: -Perioperative antibiotics per Dr. Smith HEME: -Monitor CBC, CMP, coags ENDO: -Replace electrolytes per protocol PROPH: -Bilateral lower extremity SCDs. Lovenox 40 mg subcutaneous daily. Protonix 40 mg po daily LINES: Utilize peripheral IVs, central line if needed Level 2 Ok to transfer to neuro floor from [facility] stand point. Consult [facility] for Medical management from 03/20/17. Further cardiac work up per Barry Galan MD Mar 19, 2017 07:45
[2017-03-19] MEDS: SPIRONOLACTONE/HCTZ 25 MG/25 MG TAB PO SCH (08:42)
[2017-03-19] MEDS: PANTOPRAZOLE SOD 40 MG DELAYED RELEASE TAB PO SCH (08:43)
[2017-03-19] MEDS: DOCUSATE SODIUM 100 MG CAP PO SCH (08:43)
[2017-03-19] MEDS: THIAMINE HCL 100 MG TAB PO SCH (08:45)
[2017-03-19] MEDS: ESTROGENS CONJUGATED 0.625 MG TAB PO SCH (08:46)
[2017-03-19] MEDS: amLODIPine BESYLATE 5 MG TAB PO SCH (08:47)
[2017-03-19] MEDS: SODIUM CHLORIDE 0.9% FLUSH 5 ML FLUSH IVF SCH (08:56)
[2017-03-19] MEDS ORDERED: ASPIRIN EC 81 MG TABEC PO SCH (09:00)
[2017-03-19] MEDS ORDERED: METOPROLOL TARTRATE 25 MG TAB PO SCH (09:00)
--- NOTE | 2017-03-19 09:29 | HHI.NSPN ---
(Desi Nunez) Note Status Status: Progress Note (Desi Nunez) Interval History Interval History Ms. Owens is a 86 y/o female s/p lumbar laminectomy and microdiscectomy on . Her surgery went well without complications. She was seen this morning during morning rounds and was doing well and orders placed for discharge. Later this morning, her nurse phone me with report of patient c/o chest pain and difficulty breathing. Her vitals taken was stable with O2 sats of 98%. A stat EKG ordered as well as CXR. Discharge held. 03/19: EKG yesterday showing ST changes. Patient moved to [facility]. Troponins negative. Reports chest pain improved following aspirin and Nitro tx. Patient evaluated by Dr. Renae last night, awaiting Dr. Bell today. (Desi Nunez) Labs, Micro, & Vital Signs Results Date Time Temp Pulse Resp B/P Pulse Ox O2 Delivery O2 Flow Rate FiO2 03/19/17 07:16 97 Nasal Cannula 2.00 03/19/17 06:00 96 03/19/17 04:00 94 03/19/17 04:00 97.9 94 21 153/87 99 03/19/17 02:00 86 03/19/17 00:00 74 03/19/17 00:00 98.0 74 14 148/68 100 03/18/17 22:00 87 03/18/17 20:00 87 03/18/17 20:00 97.6 80 25 169/78 96 03/18/17 16:00 97.8 72 15 130/64 99 03/18/17 14:45 97.8 79 28 136/77 98 03/18/17 12:00 95.8 80 18 111/72 97 03/18/17 10:53 92 21 03/19/17 07:00 Intake Total 1560 ml Output Total 2800 ml Balance -1240 ml Constitutional Vital Signs Date Time Temp Pulse Resp B/P Pulse Ox O2 Delivery O2 Flow Rate FiO2 03/19/17 07:16 97 Nasal Cannula 2.00 03/19/17 06:00 96 03/19/17 04:00 94 03/19/17 04:00 97.9 94 21 153/87 99 03/19/17 02:00 86 03/19/17 00:00 74 03/19/17 00:00 98.0 74 14 148/68 100 03/18/17 22:00 87 03/18/17 20:00 87 03/18/17 20:00 97.6 80 25 169/78 96 03/18/17 16:00 97.8 72 15 130/64 99 03/18/17 14:45 97.8 79 28 136/77 98 03/18/17 12:00 95.8 80 18 111/72 97 03/18/17 10:53 92 21 03/19/17 07:00 Intake Total 1560 ml Output Total 2800 ml Balance -1240 ml (Desi Nunez) Review of Systems/Exam Exam Ms. Owens is alert, awake and oriented to time, place and person. Sitting up in chair, appears comfortable and in no acute distress. Speech is fluent. CN: pupils equal, round and reactive to light. Facial motor symmetrical. Neck is soft and supple Motor: moving all four extremities well Skin: dry, no cyanosis or erythema (Desi Nunez) Medications Current Medications Current Medications Medications (Trade) Dose Ordered Sig/Raysa Route PRN Reason Start Time Stop Time Status Last Admin Dose Admin Lactated Ringer's 1,000 ml @ 30 mls/hr Q24H PRN IV SEE LABEL COMMENTS 03/17/17 07:15 03/20/17 07:14 03/17/17 07:30 Sodium Chloride 500 ml @ 30 mls/hr [id number] PRN IV SEE LABEL COMMENTS 03/17/17 07:15 03/20/17 07:14 Hold Sodium Chloride 1,000 ml @ 30 mls/hr Q24H IV 03/17/17 07:15 Hold Potassium Chloride/Sodium Chloride (NS + KCl 20 Meq Inj) 1,000 ml @ 100 mls/hr Q10H IV 03/17/17 10:48 03/17/17 21:35 IV Flush (NS Flush) 2 ml UNSCH PRN IVF FLUSH AFTER USING IV ACCESS 03/17/17 11:00 IV Flush (NS Flush) 2 ml BID IVF 03/17/17 21:00 03/19/17 08:56 Docusate Sodium (Colace) 100 mg BID PO 03/17/17 21:00 03/19/17 08:43 Pantoprazole Sodium (Protonix) 40 mg DAILY PO 03/18/17 09:00 03/19/17 08:43 Acetaminophen/ Hydrocodone Bitart (Bennett 10-325 Mg) 1 tab Q4H PRN PO PAIN SCALE 1 TO 5 03/17/17 11:00 Acetaminophen/ Hydrocodone Bitart (Bennett 10-325 Mg) 2 tab Q4H PRN PO PAIN SCALE 6 TO 10 03/17/17 11:00 Morphine Sulfate (Morphine Inj) 2 mg Q2H PRN IV PUSH PAIN SCALE 1 TO 6 03/17/17 11:00 Morphine Sulfate (Morphine Inj) 4 mg Q2H PRN IV PUSH PAIN SCALE 7 TO 10 03/17/17 11:00 Acetaminophen (Tylenol) 650 mg Q4H PRN PO TEMPERATURE > 101.5 F 03/17/17 11:00 Amlodipine Besylate (Norvasc) 5 mg DAILY PO 03/18/17 09:00 03/18/17 10:20 Baclofen (Lioresal) 20 mg HS PO 03/17/17 21:00 03/18/17 20:22 Diclofenac Sodium (Voltaren Dr) 75 mg BID PRN PO BACK PAIN 03/17/17 21:00 Hold Estrogens Conjugated (Premarin) 0.625 mg DAILY PO 03/18/17 09:00 03/19/17 08:46 HCTZ/ Spironolactone (Aldactazide 25-25 Mg) 1 tab DAILY PO 03/18/17 09:00 03/19/17 08:42 Acetaminophen/ Butalbital/ Caffeine (Fioricet 325-50-40) 1 tab Q8H PRN PO MIGRAINE 03/17/17 18:30 03/19/17 05:54 Nitroglycerin (Nitrostat Sl) 0.3 mg Q5M PRN SL CHEST PAIN 03/18/17 15:00 Atorvastatin Calcium (Lipitor) 10 mg HS PO 03/18/17 21:00 03/18/17 20:22 Aspirin (Ecotrin Ec) 81 mg DAILY PO 03/19/17 09:00 03/19/17 08:47 Thiamine HCl (Vitamin B1) 100 mg DAILY PO 03/18/17 18:00 03/19/17 08:45 Enoxaparin Sodium (Lovenox Inj) 40 mg DAILY@20 SQ 03/18/17 20:00 03/18/17 20:21 Metoprolol Tartrate (Lopressor) 12.5 mg Q12HR PO 03/19/17 09:00 03/19/17 08:46 Miscellaneous (Pill Splitter) 1 ea UNSCH PRN OTHER SEE LABEL COMMENTS 03/19/17 07:45 (Desi Nunez) Medical Decision Making MDM Remarks 86 y/o female s/p lumbar laminectomy and microdiscectomy on 03/17/17 acute chest pain and shortness of breath, (Desi Nunez) Plan Plan Remarks appreciate cardiology and critical care mgt, following cont neuro checks in [facility], cont aspirin (Desi Nunez) Attending Statement The exam, history, and the medical decision-making described in the above note were completed with the assistance of the mid-level provider. I reviewed and agree with the findings presented. I attest that I had a [id number] encounter with the patient on the same day, and personally performed and documented my assessment and findings in the medical record. (John Smith MD) Desi Nunez Mar 19, 2017 09:29 John Smith MD Mar 19, 2017 16:31
--- NOTE | 2017-03-19 15:45 | PD.CONS ---
[facility] By [facility] Care Physician Non-Staff Diagnoses: History of Present Illness Mrs. Owens is an 86-year-old female. She is admitted for laminectomy. Discharge was planned yesterday but discharge held secondary to chest pain. Changes on EKG were seen but patient did not have elevation in her troponins through time. She follows as an outpatient with . Consult cardiology is pending. No complaints of chest pain today when seen. Review of Systems Constitutional: DENIES: Diaphoretic episodes, Fatigue, Fever, Chills Eyes: DENIES: Blurred vision, Diplopia Ears, nose, mouth, throat: DENIES: Hearing loss, Vertigo Respiratory: DENIES: Cough, Wheezing, Shortness of breath Cardiovascular: COMPLAINS OF: Chest pain, DENIES: Palpitations, Syncope Gastrointestinal: DENIES: Abdominal pain, Black stools, Bloody stools Musculoskeletal: DENIES: Joint pain, Muscle aches Integumentary: DENIES: Abnormal pigmentation, Pruritus Hematologic/lymphatic: DENIES: Bruising Immunologic/allergic: DENIES: Eczema Neurologic: DENIES: Abnormal gait Psychiatric: DENIES: Anxiety, Confusion Past Family Social History Allergies: Coded Allergies: Codeine (Verified Allergy, Unknown, Nausea/Vomiting, 03/17/17) Penicillin (Verified Allergy, Unknown, Rash, 03/17/17) Sulfa (Verified Allergy, Unknown, Rash, 03/17/17) Past Medical History Hypertension Chronic back pain Osteoarthritis History of leaky valve not otherwise specified Past Surgical History Cholecystectomy Hysterectomy Tonsillectomy Laminectomy Reported Medications Reported Meds & Active Scripts Active Nexium (Esomeprazole DR) 40 Mg Capdr 40 Mg PO DAILY Diclofenac Sodium DR (Diclofenac Sodium) 25 Mg Tabdr 75 Mg PO BID PRN Reported Baclofen 20 Mg Tab 20 Mg PO HS Aspirin 81 (Aspirin) 81 Mg Tabdr 81 Mg PO DAILY Norvasc (Amlodipine Besylate) 5 Mg Tab 5 Mg PO DAILY Aldactazide (HCTZ/Spironolactone) 25-25 Mg Tab 1 Tab PO DAILY Premarin (Estrogens Conjugated) 0.625 Mg Tab 0.625 Mg PO DAILY Active Ordered Medications Administered Medications Medications (Trade) Dose Ordered Sig/Raysa Route PRN Reason Start Time Stop Time Status Last Admin Dose Admin Lactated Ringer's 1,000 ml @ 30 mls/hr Q24H PRN IV SEE LABEL COMMENTS 03/17/17 07:15 03/20/17 07:14 03/17/17 07:30 Potassium Chloride/Sodium Chloride (NS + KCl 20 Meq Inj) 1,000 ml @ 100 mls/hr Q10H IV 03/17/17 10:48 03/17/17 21:35 IV Flush (NS Flush) 2 ml BID IVF 03/17/17 21:00 03/19/17 08:56 Docusate Sodium (Colace) 100 mg BID PO 03/17/17 21:00 03/19/17 08:43 Pantoprazole Sodium (Protonix) 40 mg DAILY PO 03/18/17 09:00 03/19/17 08:43 Amlodipine Besylate (Norvasc) 5 mg DAILY PO 03/18/17 09:00 03/18/17 10:20 Baclofen (Lioresal) 20 mg HS PO 03/17/17 21:00 03/18/17 20:22 Estrogens Conjugated (Premarin) 0.625 mg DAILY PO 03/18/17 09:00 03/19/17 08:46 HCTZ/ Spironolactone (Aldactazide 25-25 Mg) 1 tab DAILY PO 03/18/17 09:00 03/19/17 08:42 Acetaminophen/ Butalbital/ Caffeine (Fioricet 325-50-40) 1 tab Q8H PRN PO MIGRAINE 03/17/17 18:30 03/19/17 05:54 Atorvastatin Calcium (Lipitor) 10 mg HS PO 03/18/17 21:00 03/18/17 20:22 Aspirin (Ecotrin Ec) 81 mg DAILY PO 03/19/17 09:00 03/19/17 08:47 Thiamine HCl (Vitamin B1) 100 mg DAILY PO 03/18/17 18:00 03/19/17 08:45 Enoxaparin Sodium (Lovenox Inj) 40 mg DAILY@20 SQ 03/18/17 20:00 03/18/17 20:21 Metoprolol Tartrate (Lopressor) 12.5 mg Q12HR PO 03/19/17 09:00 03/19/17 08:46 Family History Coronary artery disease and diabetes mellitus Social History No smoking, no drinking, no drug abuse Physical Exam Vital Signs Vital Signs Date Time Temp Pulse Resp B/P Pulse Ox O2 Delivery O2 Flow Rate FiO2 03/19/17 14:00 88 03/19/17 12:00 98.0 86 29 110/70 98 03/19/17 12:00 86 03/19/17 10:00 80 03/19/17 08:00 97.6 66 15 87/52 97 03/19/17 08:00 66 03/19/17 07:16 97 Nasal Cannula 2.00 03/19/17 06:00 96 03/19/17 04:00 94 03/19/17 04:00 97.9 94 21 153/87 99 03/19/17 02:00 86 03/19/17 00:00 74 03/19/17 00:00 98.0 74 14 148/68 100 03/18/17 22:00 87 03/18/17 20:00 87 03/18/17 20:00 97.6 80 25 169/78 96 03/18/17 16:00 97.8 72 15 130/64 99 Physical Exam GENERAL: NAD, A&Ox3 HEAD: Normocephalic. NECK: Supple, trachea midline. No lymphadenopathy. EYES: No scleral icterus. No injection or drainage. CARDIOVASCULAR: Regular rate and rhythm without murmurs, gallops, or rubs. RESPIRATORY: Breath sounds equal bilaterally. No accessory muscle use. GASTROINTESTINAL: Abdomen soft, non-tender, nondistended. MUSCULOSKELETAL: No cyanosis, or edema. SKIN: Warm and dry. NEURO: No focal neurological deficitis. Laboratory Laboratory Tests Test 03/18/17 03/19/17 03/19/17 20:25 03:48 10:42 Total Creatine Kinase 95 80 Troponin I LESS THAN 0.02 LESS THAN 0.02 Nasal Screen MRSA (PCR) MRSA NOT DETECTED Result Diagram: 03/18/17 1510 03/18/17 1510 Imaging Last Impressions Lower Extremity Ultrasound 03/18/17 1630 Signed Impressions: Service Date/Time: March 16:36 - CONCLUSION: 1. No DVT identified. 2. 1.3 x 1.6 x 2.5 cm Napier's cyst within the popliteal fossa. Yoel Byrd MD Chest X-Ray 03/18/17 0000 Signed Impressions: Service Date/Time: March 14:16 - CONCLUSION: 1. Chronic appearing interstitial changes in the pulmonary parenchyma. No acute abnormality. Yoel Byrd MD Lumbar Spine X-Ray 03/17/17 0000 Signed Impressions: Service Date/Time: Friday, March 17, 2017 09:37 - CONCLUSION: Surgical instruments are noted posteriorly at the L4-L5 level. Grade I anterolisthesis of L4 in relation to L5 is noted. Bao Mancia MD Assessment and Plan Problem List: (1) Back pain with left-sided sciatica ICD Code: M54.32 Status: Acute (2) Family history of diabetes mellitus (3) FH: stroke ICD Code: Z82.3 (4) FH: heart disease ICD Code: Z82.49 (5) Family history of hypertension Assessment and Plan Assessment and plan 86 year old female admitted for and status post laminectomy. Discharge held secondary to chest pain. Negative cardiac enzymes overnight. Cardiology consult. Chest pain Improved Transfer out of ICU Follow on telemetry Negative cardiac enzymes Further workup per cardiology Monitor for recurrence of chest pain Hypertension Follow blood pressures Treat as needed to keep pressures controlled. Next Status post laminectomy Osteoarthritis continue pain treatments as needed Neurosurgery following Wound care Back support as needed DVT prophylaxis Yoel Gregory MD Mar 19, 2017 3:45 pm
[2017-03-19] MEDS ORDERED: METO25TA3 PO (16:02)
[2017-03-19] MEDS ORDERED: NITR.3 SL (16:02)
--- NOTE | 2017-03-19 17:29 | ECHRPT ---
Indication: CONCLUSIONS The left ventricular systolic function is low normal with an estimated ejection fraction in the rang e of 50- 55%. Wall thickness is normal. Normal left ventricular size. Structurally normal tricuspid valve. There is mild to moderate tricuspid valve regurgitation. The estimated pulmonary arterial pressure is 38 mmHg. BP: 100 / 54 HR: 84 Rhythm: Sinus MEASUREMENTS (Male / Female) Normal Values Technical Quality:Technically difficult study 2D ECHO LV Diastolic Diameter PLAX 3.5 cm 4.2 - 5.9 / 3.9 - 5.3 cm LV Systolic Diameter PLAX 2.7 cm IVS Diastolic Thickness 0.9 cm 0.6 - 1.0 / 0.6 - 0.9 cm LVPW Diastolic Thickness 0.9 cm 0.6 - 1.0 / 0.6 - 0.9 cm LV Relative Wall Thickness 0.5 LVOT Diameter 1.7 cm M-MODE Aortic Root Diameter MM 3.4 cm LA Systolic Diameter MM 2.8 cm LA Ao Ratio MM 0.8 AV Cusp Separation MM 1.9 cm DOPPLER AV Peak Velocity 130.0 cm/s AV Peak Gradient 6.8 mmHg LVOT Peak Velocity 119.0 cm/s LVOT Peak Gradient 5.7 mmHg AV Area Cont Eq pk 2.1 cm Mitral E Point Velocity 76.5 cm/s Mitral A Point Velocity 111.0 cm/s Mitral E to A Ratio 0.7 TR Peak Velocity 263.0 cm/s TR Peak Gradient 27.7 mmHg PV Peak Velocity 88.2 cm/s PV Peak Gradient 3.1 mmHg FINDINGS LEFT VENTRICLE The left ventricular systolic function is low normal with an estimated ejection fraction in the rang e of 50- 55%. Wall thickness is normal. Normal left ventricular size. RIGHT VENTRICLE Normal right ventricular size and systolic function. LEFT ATRIUM The left atrial size is normal. RIGHT ATRIUM The right atrial size is normal. ATRIAL SEPTUM Normal atrial septal thickness without atrial level shunting by limited color doppler interrogation. AORTA The aortic root and proximal ascending aorta are normal in size on limited imaging. MITRAL VALVE Structurally normal mitral valve. No mitral valve stenosis or regurgitation. AORTIC VALVE Trileaflet aortic valve. No aortic valve stenosis or regurgitation. TRICUSPID VALVE Structurally normal tricuspid valve. There is mild to moderate tricuspid valve regurgitation. The estimated pulmonary arterial pressure is 38 mmHg. PULMONARY VALVE The pulmonary valve is not well visualized. VESSELS The inferior vena cava is normal in size. PERICARDIUM No pericardial effusion. Lalo Longo MD, FACC, [facility] (Electronically Signed) Final Date:19 March 2017 17:28
--- NOTE | 2017-03-19 18:20 | PD.CARD.PN ---
Subjective Subjective Remarks Feels better no more chest pain ECG and cardiac enzymes negative Objective Medications The exam, history, and the medical decision-making described in the above note were completed with the assistance of the mid-level provider. I reviewed and agree with the findings presented. I attest that I had a [id number] encounter with the patient on the same day, and personally performed and documented my assessment and findings in the medical record. Administered Medications Medications (Trade) Dose Ordered Sig/Raysa Route PRN Reason Start Time Stop Time Status Last Admin Dose Admin Lactated Ringer's 1,000 ml @ 30 mls/hr Q24H PRN IV SEE LABEL COMMENTS 03/17/17 07:15 03/20/17 07:14 03/17/17 07:30 Potassium Chloride/Sodium Chloride (NS + KCl 20 Meq Inj) 1,000 ml @ 100 mls/hr Q10H IV 03/17/17 10:48 03/17/17 21:35 IV Flush (NS Flush) 2 ml BID IVF 03/17/17 21:00 03/19/17 08:56 Docusate Sodium (Colace) 100 mg BID PO 03/17/17 21:00 03/19/17 08:43 Pantoprazole Sodium (Protonix) 40 mg DAILY PO 03/18/17 09:00 03/19/17 08:43 Amlodipine Besylate (Norvasc) 5 mg DAILY PO 03/18/17 09:00 03/18/17 10:20 Baclofen (Lioresal) 20 mg HS PO 03/17/17 21:00 03/18/17 20:22 Estrogens Conjugated (Premarin) 0.625 mg DAILY PO 03/18/17 09:00 03/19/17 08:46 HCTZ/ Spironolactone (Aldactazide 25-25 Mg) 1 tab DAILY PO 03/18/17 09:00 03/19/17 08:42 Acetaminophen/ Butalbital/ Caffeine (Fioricet 325-50-40) 1 tab Q8H PRN PO MIGRAINE 03/17/17 18:30 03/19/17 05:54 Atorvastatin Calcium (Lipitor) 10 mg HS PO 03/18/17 21:00 03/18/17 20:22 Aspirin (Ecotrin Ec) 81 mg DAILY PO 03/19/17 09:00 03/19/17 08:47 Thiamine HCl (Vitamin B1) 100 mg DAILY PO 03/18/17 18:00 03/19/17 08:45 Enoxaparin Sodium (Lovenox Inj) 40 mg DAILY@20 SQ 03/18/17 20:00 03/18/17 20:21 Metoprolol Tartrate (Lopressor) 12.5 mg Q12HR PO 03/19/17 09:00 03/19/17 08:46 Vital Signs / I&O Vital Signs Date Time Temp Pulse Resp B/P Pulse Ox O2 Delivery O2 Flow Rate FiO2 03/19/17 14:00 88 03/19/17 12:00 98.0 86 29 110/70 98 03/19/17 12:00 86 03/19/17 10:00 80 03/19/17 08:00 97.6 66 15 87/52 97 03/19/17 08:00 66 03/19/17 07:16 97 Nasal Cannula 2.00 03/19/17 06:00 96 03/19/17 04:00 94 03/19/17 04:00 97.9 94 21 153/87 99 03/19/17 02:00 86 03/19/17 00:00 74 03/19/17 00:00 98.0 74 14 148/68 100 03/18/17 22:00 87 03/18/17 20:00 87 03/18/17 20:00 97.6 80 25 169/78 96 I/O 03/18/17 03/18/17 03/18/17 03/19/17 03/19/17 03/19/17 07:00 15:00 23:00 07:00 15:00 23:00 Intake Total 430 ml 960 ml 360 ml 240 ml 1440 ml Output Total 2000 ml 800 ml Balance 430 ml 960 ml -1640 ml -560 ml 1440 ml Intake Oral 430 ml 960 ml 360 ml 240 ml 1440 ml Output Urine Total 2000 ml 800 ml # Voids 3 4 4 # Bowel Movements 0 0 0 0 0 Physical Exam GENERAL: Well-nourished, well-developed patient in no apparent distress. SKIN: Warm and dry. NECK: JVD normal - less than or equal to 5 cm H20. CARDIOVASCULAR: Regular rate and rhythm without murmurs, gallops or rubs. RESPIRATORY: Normal breath sounds - equal bilaterally. No accessory muscle use. No wheezes, rales or rubs. PERIPHERY: No cyanosis or edema. Laboratory Laboratory Tests Test 03/18/17 03/19/17 03/19/17 20:25 03:48 10:42 Total Creatine Kinase 95 U/L 80 U/L Troponin I LESS THAN 0.02 LESS THAN 0.02 NG/ML NG/ML Nasal Screen MRSA (PCR) MRSA NOT DETECTED Assessment and Plan Assessment and Plan ND RULED OUT OVERALL STABLE CV WILL fu SAS O/P AND WHEN BETTER CONSIDER NUCLEAR STRESS TEST Discussed Condition With Néstor Ray DR, MD Mar 19, 2017 18:19
--- NOTE | 2017-03-19 22:49 | EKG ---
Date Performed: 03/18/2017 Time Performed: 14:48:56 PTAGE: 86 years EKG: Sinus rhythm . Anterolateral ST-T changes may be due to myocardial ischemia Abnormal ECG NO PREVIOUS TRACING DOCTOR: Dar Moscoso Interpretating Date/Time 03/19/2017 22:46:40
--- NOTE | 2017-03-19 22:52 | EKG ---
Date Performed: 03/18/2017 Time Performed: 13:14:18 PTAGE: 86 years EKG: Sinus rhythm MODERATE INTRAVENTRICULAR CONDUCTION DELAY MODERATE T-WAVE ABNORMALITY, CONSIDER LATERAL ISCHEMIA AB NORMAL ECG PREVIOUS TRACING : 03/17/2017 07.21 DOCTOR: Dar Moscoso Interpretating Date/Time 03/19/2017 22:50:56
== END 2017-03-19 16:54 | disposition home or self-care (01) ==
LOC: HSDC 06:49 → HSDI 10:50 → N06B 15:33 → N03A 03-18 14:48
PROVIDERS: ADMIT Neurological Surgery; ATTEND Neurological Surgery
DX: M48.06 Spinal stenosis, lumbar region (principal); M51.16 Intervertebral disc disorders with radiculopathy, lumbar region; I10 Essential (primary) hypertension; R07.9 Chest pain, unspecified; K21.9 Gastro-esophageal reflux disease without esophagitis; E78.5 Hyperlipidemia, unspecified; I65.29 Occlusion and stenosis of unspecified carotid artery; I07.1 Rheumatic tricuspid insufficiency; M19.90 Unspecified osteoarthritis, unspecified site; E66.9 Obesity, unspecified; Z68.31 Body mass index [BMI] 31.0-31.9, adult; Z88.5 Allergy status to narcotic agent; Z79.82 Long term (current) use of aspirin; Z88.0 Allergy status to penicillin; Z85.828 Personal history of other malignant neoplasm of skin; Z88.2 Allergy status to sulfonamides
CPT/HCPCS: 00630; 36600; 63030; 71020; 72020; 76000; 80053; 82550; 82552; 82805; 84484; 85027; 87641; 93005; 93306; 93970; 94150; 97162; C9290; G0378; G8987; G8988; J0131; J0690; J1030; J1580; J1650; J2175; J2250; J2270; J2370; J2405; J2710; J3010; J3370; J3480; J7050; J7120; L0627

== ENCOUNTER 2017-04-03 08:50 | Inpatient (IN) | payer MEDICARE, BC ==
[~2017-04-03] VITALS: Ht 160 cm; Wt 71.6 kg
[~2017-04-03 08:50] MED LIST changes: +COMMODE 3-IN-11 MIS; +GABA300C5 PO; +METO25TA3 PO; +NITR.3 SL; +TRAM50TA PO
[2017-04-03 08:55] VITALS: BP 133/69; PULSE 88; RESP 20; TEMP 97.8; O2SAT 97
[2017-04-03] MEDS ORDERED: BUTA1CAP PO (09:19)
[2017-04-03 10:11] LABS: AUTOMATED NEUTROPHIL # 7.5 TH/MM3 (1.8-7.7); BASOPHIL # 0.1 TH/MM3 (0-0.2); BASOPHIL % 0.7 % (0.0-2.0); EOSINOPHIL # 0.1 TH/MM3 (0-0.4); EOSINOPHIL % 0.8 % (0.0-4.0); HEMATOCRIT 40.6 % (35.0-46.0); HEMO FLAGS DIFF FINAL; LYMPH % 15.6 % (9.0-44.0); LYMPHOCYTE # 1.6 TH/MM3 (1.0-4.8); MEAN CELL VOLUME 91.2 FL (80.0-100.0); MONO % 8.3 % (0.0-8.0); NEUT % 74.6 % (16.0-70.0); PLATELET COUNT 322 TH/MM3 (150-450); RED BLOOD COUNT 4.45 MIL/MM3 (4.00-5.30); RED CELL DISTRIBUTION WIDTH 12.8 % (11.6-17.2); WHITE BLOOD COUNT 10.1 TH/MM3 (4.0-11.0)
[2017-04-03 10:27] LABS: ALT (GPT) 21 U/L (10-53); ANION GAP 4 MEQ/L (5-15); AST (GOT) 16 U/L (15-37); BICARBONATE 33.6 MEQ/L (21.0-32.0); BLOOD UREA NITROGEN 15 MG/DL (7-18); CHLORIDE 98 MEQ/L (98-107); GLOMERULAR FILTRATION RATE 105 ML/MIN (>89); POTASSIUM 3.5 MEQ/L (3.5-5.1); SODIUM (NA) 136 MEQ/L (136-145)
[2017-04-03 10:29] LABS: ALKALINE PHOSPHATASE 69 U/L (45-117); TOTAL BILIRUBIN ADULT 0.3 MG/DL (0.2-1.0)
[2017-04-03] MEDS ORDERED: traMADol HCL 50 MG TAB PO ONE (10:30)
[2017-04-03] MEDS ORDERED: LORazepam 2 MG/ML VIAL IV PUSH ONE (10:30)
--- NOTE | 2017-04-03 10:52 | PD ---
HPI Chief Complaint: Numbness/Tingling Time Seen by Provider: 09:20 Travel History International Travel<30 days: No Contact w/Intl Traveler<30days: No Traveled to known affect area: No History of Present Illness HPI This is an 86-year-old female who presents to the emergency department having had a decompressive laminectomy by Dr. Smith 2 weeks ago with onset over the past week of left foot drop. She reports that she saw him on Wednesday and was feeling some symptoms at that point but at that point he just increased her pain medication. Her weakness in her left foot has become much worse to the point where she can't lift up her foot at all and she's having difficulty walking, constant, severe. She is having a lot of pain in her low back radiating down the back of her leg. She denies any fevers or chills. She does have a history of peripheral arterial disease in the left lower extremity as well. PFSH Past Medical History Hx Anticoagulant Therapy: No Cancer: Yes (SKIN CANCER) Cardiovascular Problems: No Chemotherapy: No Cerebrovascular Accident: No Diabetes: No Diminished Hearing: Yes (issa hearing aids) Endocrine: No GERD: Yes Genitourinary: No Hepatitis: No Hiatal Hernia: No Hypertension: Yes Immune Disorder: No Medical other: No Musculoskeletal: Yes (SCIATICA, NECK ) Neurologic: No Psychiatric: No Reproductive: No Respiratory: No Thyroid Disease: No Tetanus Vaccination: Unknown Influenza Vaccination: Yes ?: Not Past Surgical History AICD: No Cholecystectomy: Yes Genitourinary Surgery: Yes (BLADDER) Gynecologic Surgery: Yes (HYSTERECTOMY) Hysterectomy: Yes Joint Replacement: No Pacemaker: No Other Surgery: Yes (spinal decompression/ lamenectomy l4 03/17/17) Social History Alcohol Use: No Tobacco Use: No Substance Use: No Allergies-Medications (Allergen,Severity, Reaction): Coded Allergies: Codeine (Verified Allergy, Unknown, Nausea/Vomiting, 03/31/17) Penicillin (Verified Allergy, Unknown, Rash, 03/31/17) Sulfa (Verified Allergy, Unknown, Rash, 03/31/17) Reported Meds & Prescriptions Reported Meds & Active Scripts Active Gabapentin 300 Mg Cap 300 Mg PO BID Tramadol (Tramadol HCl) 50 Mg Tab 50 Mg PO Q6H PRN Nitrostat SL (Nitroglycerin) 0.3 Mg Subl 0.3 Mg SL Q5M PRN Metoprolol Tartrate 25 Mg Tab 12.5 Mg PO Q12HR Nexium (Esomeprazole DR) 40 Mg Capdr 40 Mg PO DAILY Reported Fioricet (Wqadjekpyc-Dppsptwnszglv-Lzuqhiwd) 50-300-40 Mg Cap 1 Cap PO Q4H PRN Aspirin 81 (Aspirin) 81 Mg Tabdr 81 Mg PO DAILY Norvasc (Amlodipine Besylate) 5 Mg Tab 5 Mg PO DAILY Aldactazide (HCTZ/Spironolactone) 25-25 Mg Tab 1 Tab PO DAILY Premarin (Estrogens Conjugated) 0.625 Mg Tab 0.625 Mg PO DAILY Review of Systems Except as stated in HPI: all other systems reviewed are Neg Physical Exam Narrative GENERAL:Well appearing, no acute distress SKIN: Focused skin assessment warm and dry. HEAD: Atraumatic. Normocephalic. EYES: Pupils equal and round. No injection or drainage. ENT: Moist mucous membranes NECK: Trachea midline. CARDIOVASCULAR: Left foot is slightly cooler than right. 1+ DP pulse in left lower extremity with 2+ DP pulse and right lower extremity. RESPIRATORY: Clear to auscultation. Breath sounds equal bilaterally. GASTROINTESTINAL: Abdomen soft, non-tender, nondistended. MUSCULOSKELETAL: No obvious deformities. NEUROLOGICAL: Awake and alert. No obvious cranial nerve deficits. 3 out of 5 dorsiflexion in the left lower extremity, otherwise left lower extremity is 5 out of 5 strength. Patient reports decreased sensation to light touch on the dorsal aspect of the left foot PSYCHIATRIC: Appropriate mood and affect; insight and judgment normal. Data Data Last Documented VS Vital Signs Date Time Temp Pulse Resp B/P Pulse Ox O2 Delivery O2 Flow Rate FiO2 04/03/17 12:36 77 16 137/73 97 04/03/17 08:55 97.8 Room Air Orders Mri L Spine W&W/O Contrast (04/03/17 ) Complete Blood Count With Diff (04/03/17 09:31) Comprehensive Metabolic Panel (04/03/17 09:31) Lorazepam Inj (Ativan Inj) (04/03/17 10:30) Tramadol (Ultram) (04/03/17 10:30) Gadodiamide Pf Inj (Omniscan Pf Inj) (04/03/17 10:55) Diet Npo (04/03/17 Lunch) Sodium Chlor 0.9% 1000 Ml Inj (Ns 1000 M (04/03/17 12:07) Scd / Luis / Foot Pump YENNI.QSHIFT (04/03/17 12:07) Vancomycin Inj (Vancomycin Inj) (04/03/17 12:15) Chlorhexidine 4% Top Soln (Hibiclens 4% (04/03/17 21:00) ^ Bath (04/03/17 12:07) Clindamycin Inj (Cleocin Inj) (04/03/17 12:30) Vancomycin Inj (Vancomycin Inj) (04/03/17 12:31) Bupivacaine-Epineph 0.5% Inj (Sensorcain (04/03/17 12:31) Thrombin Top Soln (Thrombin Top Soln) (04/03/17 12:32) Methylprednisolone Acetate Inj (Depo-Med (04/03/17 12:32) Dexamethasone Inj (Decadron Inj) (04/03/17 12:32) Gelfoam 100 Top (Gelfoam 100 Top) (04/03/17 12:32) Cefazolin Inj (Ancef Inj) (04/03/17 12:32) Gentamicin Inj (Gentamicin Inj) (04/03/17 12:32) Clindamycin Inj (Cleocin Inj) (04/03/17 12:37) Clindamycin Inj (Cleocin Inj) (04/03/17 12:37) Admit Order (Ed Use Only) (04/03/17 12:43) Labs Laboratory Tests Test 04/03/17 09:44 White Blood Count 10.1 TH/MM3 Red Blood Count 4.45 MIL/MM3 Hemoglobin 13.8 GM/DL Hematocrit 40.6 % Mean Corpuscular Volume 91.2 FL Mean Corpuscular Hemoglobin 31.0 PG Mean Corpuscular Hemoglobin 34.0 % Concent Red Cell Distribution Width 12.8 % Platelet Count 322 TH/MM3 Mean Platelet Volume 9.5 FL Neutrophils (%) (Auto) 74.6 % Lymphocytes (%) (Auto) 15.6 % Monocytes (%) (Auto) 8.3 % Eosinophils (%) (Auto) 0.8 % Basophils (%) (Auto) 0.7 % Neutrophils # (Auto) 7.5 TH/MM3 Lymphocytes # (Auto) 1.6 TH/MM3 Monocytes # (Auto) 0.8 TH/MM3 Eosinophils # (Auto) 0.1 TH/MM3 Basophils # (Auto) 0.1 TH/MM3 CBC Comment DIFF FINAL Differential Comment Sodium Level 136 MEQ/L Potassium Level 3.5 MEQ/L Chloride Level 98 MEQ/L Carbon Dioxide Level 33.6 MEQ/L Anion Gap 4 MEQ/L Blood Urea Nitrogen 15 MG/DL Creatinine 0.55 MG/DL Estimat Glomerular Filtration 105 ML/MIN Rate Random Glucose 94 MG/DL Calcium Level 9.2 MG/DL Total Bilirubin 0.3 MG/DL Aspartate Amino Transf 16 U/L (AST/SGOT) Alanine Aminotransferase 21 U/L (ALT/SGPT) Alkaline Phosphatase 69 U/L Total Protein 7.3 GM/DL Albumin 3.6 GM/DL MDM Medical Decision Making Medical Screen Exam Complete: Yes Emergency Medical Condition: Yes Interpretation(s) afebrile, no tachycardia, normotensive no leukocytosis 74% neutrophils electrolytes are reassuring MRI: degenerative changes with left central disc protrusion at L4-L5 with mass effect on the L5 nerve roots and abutment of the S1 nerve root. Differential Diagnosis herniated disc, edema, hematoma, epidural abscess Narrative Course This is an 86 year old female who had a laminectomy [address] Smith who reports a foot drop that's been progressing over the past week. An MRI was obtained and patient has a disc protrusion at L4-L5 with mass effect on the L5 nerve roots and abutment of S1 likely the etiology of the patient's symptoms. Dr. Smith came to see the patient in the emergency department and will take her to the OR this afternoon. She will be admitted to the medical service. Physician Communication Physician Communication Discussed with Dr. Smith and Dr. Abdi Diagnosis Primary Impression: Foot drop, left Admitting Information Admitting Physician Requests: Admit Berna Pinto MD Apr 03, 2017 10:52
[2017-04-03] MEDS ORDERED: GADODIAMIDE PF 287 MG/ML 20 ML VIAL (for RAD MRI) IV ONE (10:55)
--- NOTE | 2017-04-03 11:22 | RADRPT ---
EXAM DATE/TIME: 04/03/2017 10:35 [facility] COMPARISON: No previous studies available for comparison. INDICATIONS : Radiculopathy. Left lower extremity numbness. Foot drop. CONTRAST: 14 cc Omniscan (gadodiamide) IV MEDICAL HISTORY : Hypertension. SURGICAL HISTORY : Cholecystectomy. Hysterectomy. Discectomy, lumbar. ENCOUNTER: Subsequent ACUITY: 2 weeks PAIN SCORE: 0/10 LOCATION: [facility] TECHNIQUE: Multiplanar multisequence MRI of the lumbar spine was performed with and without contrast. FINDINGS: The most caudal appearing lumbar vertebra is numbered as L5. Grade 1 anterolisthesis of L4 on L5. The re is mild discogenic edema along the L4-L5 endplates to the left. Conus unremarkable. Facet joint fl uid at L4-5 bilaterally, left greater than right. T12-L1: The thecal sac has a normal diameter. No evidence of disc bulge or protrusion. The neural foramina are patent bilaterally. L1-L2: The thecal sac has a normal diameter. No evidence of disc bulge or protrusion. The neural foramina are patent bilaterally. L2-L3: Mild diffuse disc bulge and facet and ligamentum flavum hypertrophy identified. Mild abutment of the right L2 exiting nerve. No canal or foraminal narrowing. L3-L4: Diffuse disc bulge is noted with mild abutment of the right L3 exiting nerve moderate facet and ligam entum flavum hypertrophy. No significant canal or foraminal narrowing. L4-L5: The patient has undergone left hemilaminectomy, and there is a broad-based left central disc protrusi on at this level displacing the left L5 nerve roots posteriorly. This measures 1.7 x 1.1 cm in transv erse and AP. There is peripheral enhancement. There is mild abutment of the L4 exiting nerves. Mild r ight, moderate left foraminal stenosis. L5-S1: The thecal sac has a normal diameter. No evidence of disc bulge or protrusion. The neural foramina are patent bilaterally. CONCLUSION: Degenerative changes and postsurgical changes are noted. There is a left central protrusion at L4-5 w ith mass effect on the L5 nerve roots and abutment of the S1 nerve roots. This is noted anterior to t he hemilaminectomy site. Carson Vines MD on April 03, 2017 at 11:13 Board Certified Radiologist. This report was verified electronically.
[2017-04-03] MEDS ORDERED: NORMOSOL R INJ 2,000 ML IV ONE (12:00)
[2017-04-03] MEDS ORDERED: SODIUM CHLORID 0.9% 500 ML INJ 500 ML IV ONE (12:00)
[2017-04-03] MEDS ORDERED: LACTATED RINGER'S 1000 ML INJ 1,000 ML IV ONE (12:00)
[2017-04-03] MEDS ORDERED: ePHEDrine/NS 25 MG/5 ML SYR IV ONE (12:00)
[2017-04-03] MEDS ORDERED: SODIUM CHLOR 0.9% 250 ML INJ 500 ML IV ONE (12:00)
[2017-04-03] MEDS ORDERED: PROPOFOL 200 MG/20 ML AMP IV ONE (12:00)
[2017-04-03] MEDS ORDERED: ONDANSETRON HCL 4 MG/2 ML VIAL IV PUSH ONE (12:00)
[2017-04-03] MEDS ORDERED: PHENYLEPH/NS 1000 MCG/10 ML SYR IV ONE (12:00)
[2017-04-03] MEDS ORDERED: SODIUM CHLOR 0.9% 1000 ML INJ 1,000 ML IV SCH ×2 (12:07→16:30)
[2017-04-03] MEDS ORDERED: VANCOMYCIN INJ 1,000 MG in SODIUM CHLOR 0.9% 250 ML INJ 250 ML IV ONE (12:15)
[2017-04-03] MEDS ORDERED: ceFAZolin 2 GM PREMIX 50 ML IV ONE (12:15)
[2017-04-03] MEDS ORDERED: CLINDAMYCIN 600 MG/NS 100 ML IV ONE ×2 (12:30)
[2017-04-03] MEDS ORDERED: BUPIVACAINE/EPINEPHRINE 0.5% 50 ML VIAL ONE (12:31)
[2017-04-03] MEDS ORDERED: VANCOMYCIN HCL 1000 MG VIAL ONE (12:31)
[2017-04-03] MEDS ORDERED: THROMBIN (TOPICAL) 5,000 UNIT VIAL ONE (12:32)
[2017-04-03] MEDS ORDERED: methylPREDNISolone ACETATE 40 MG/ML VIAL ONE (12:32)
[2017-04-03] MEDS ORDERED: GENTAMICIN SULFATE 80 MG/2 ML VIAL ONE (12:32)
[2017-04-03] MEDS ORDERED: DEXAMETHASONE SOD PHOS 4 MG/ML VIAL ONE (12:32)
[2017-04-03] MEDS ORDERED: ceFAZolin INJ 1,000 MG VIAL ONE (12:32)
[2017-04-03] MEDS ORDERED: GELFOAM SIZE 100 ONE (12:32)
[2017-04-03 12:36] VITALS: BP 137/73
[2017-04-03] MEDS ORDERED: CLINDAMYCIN PHOS 600 MG/4 ML VIAL ONE (12:37)
[2017-04-03] MEDS ORDERED: CLINDAMYCIN PHOS 900 MG/6 ML VIAL ONE (12:37)
[2017-04-03] MEDS ORDERED: FAMOTIDINE 20 MG/2 ML VIAL ONE (13:03)
[2017-04-03] MEDS ORDERED: ACETAMINOPHEN 1000 MG/100 ML VIAL IV ONE (13:10)
[2017-04-03] MEDS ORDERED: ACETAMINOPHEN 325 MG TAB PO PRN ×2 (16:00→16:45)
[2017-04-03] MEDS ORDERED: NALOXONE HCL 0.4 MG/ML AMP IV PRN ×2 (16:00→16:45)
[2017-04-03] MEDS ORDERED: SODIUM CHLORIDE 0.9% FLUSH 10 ML FLUSH IV FLUSH PRN (16:00)
[2017-04-03] MEDS ORDERED: SENNOSIDES 8.6 MG TAB PO PRN (16:00)
[2017-04-03] MEDS ORDERED: NITROGLYCERIN 0.3 MG SL 100 TABS/BTL SL PRN (16:00)
[2017-04-03] MEDS ORDERED: ONDANSETRON HCL 4 MG/2 ML VIAL IVP PRN (16:00)
[2017-04-03] MEDS ORDERED: MAGNESIUM HYDROXIDE SUSP 30 ML CUP PO PRN (16:00)
[2017-04-03] MEDS ORDERED: BISACODYL 10 MG SUPP RECTAL PRN (16:00)
[2017-04-03] MEDS ORDERED: LACTULOSE SYRUP 20 GM/30 ML CUP PO PRN (16:00)
[2017-04-03] MEDS ORDERED: traMADol HCL 50 MG TAB PO PRN (16:00)
[2017-04-03] MEDS ORDERED: PILL SPLITTER OTHER PRN (16:30)
--- NOTE | 2017-04-03 16:38 | PD.OP ---
Operative Report Date of Surgery: Apr 03, 2017 Preoperative Diagnosis: L4-5 spondylolisthesis with recurrent disk herniation Postoperative Diagnosis: L4-5 spondylolisthesis with recurrent disk herniation Procedure: Redo L4-L5 laminectomy, interbody arthrodhesis using PEEK cage and autologous bone graft, L4-L5 instrumental fixation using transpedicular screws and rods, L4 -L5 posterolateral fusion using autologous bone graft and demineralized bone matrix. Microsurgical dissection Anesthesia: general Surgeon: John Smith Video Production Assistant(s): Yoel Operation and Findings: INDICATIONS FOR THE SURGERY Ms Owens is a 88 year-old female who presented with intractable mechanical back pain and a new onset foor drop with evidence of left lower extremity L5 radiculopathy. She had a prior laminectomy at L4-5 and developed a recurrent disk herniation and spondylolisthesis. n. A redo surgical decompression and arthrodhesis at L4-5 were indicated as a last resort. The [id number] details of the procedure, indications, alternatives, risks and potential complications were fully discussed with the patient. The patient fully understood. All the questions were answered. No guarantees were given. The patient voiced requesting the procedure and provided informed consents. The patient was offered the alternative of delaying the procedure and continuing with nonsurgical management. DETAILS OF THE SURGICAL PROCEDURE Prior to the procedure, the surgical incision was marked in the preoperative surgical holding room, and the procedure, risks, and potential complications revisited with the patient. Placement of electrodes for intraoperative neurophysiological monitoring was completed. The patient was taken to the operative room, and following induction of general anesthesia, endotracheal intubation was performed. A Hinkle catheter, bilateral CHARLY hose and sequential compression devices were placed and kept throughout the procedure. The patient was positioned prone, over a Jose M table over a Sven frame. All pressure in the preoperative surgical holding room points were carefully padded with eggcrate and gel mattress. The eyes were tapped shut after ointment was applied by the anesthesiologist to prevent corneal abrasion. A Obdulia hugger was placed over the exposed lower body to maintain control of the core body temperature. The electrophysiological team placed the needles and electrodes in their proper location and baseline SSEP's and motor evoked potentials were registered. The entrance to each pedicles was marked using a C arm. The lumbar region was prepped and draped in the usual sterile fashion. The surgical procedure was performed in several steps as follow: SURGICAL APPROACH Once the patient was positioned, a localizing cross-table lateral x-ray was performed with a C-arm. Two paramedian small incisions were outlined on the skin approximately 3cm from the midline. The skin incisions were made with a # 10 blade. Small bleeders were controlled with the cautery. The dissection was then carried out into deper planes and through the thoracolumbar fascia with a Bovie. The intermuscular septum was identified and the myscles were blunted dissected along the septum. The facets and transverse process of L4 and L5 exposed and the proper anatomical landmarks were identified. A microsurgical self-retaining retractor was placed on the incision, and a localizing lateralizing cross-table x-ray was performed with an instrument underneath a lamina of the lumbar spine. INSTRUMENTAL FIXATION At this point in the procedure, placement of bilateral transpedicular screws was necessary for stabilization of the spine. Initially, the entry point for the screw was selected anatomically at the junction of the facet, with the transverse process, and the pars interarticularis at L4 and L5. This was started with a Giamshetti needle followed by the use of a last wire. A tap was used to create the threads for the screws. Finally bilateral transpedicular screws were carefully placed bilaterally at L4, and L5 under fluoroscopic visualization. An appropriate purchase was achieved with all screws. The position of each screw was assessed anatomically with an AP, lateral , oblique Xrays. An intraoperative scan view of the spine was then performed using the iso-centric c-arm. Each screw was then assessed electrophysiologically stimulating each screw with a nerve stimulator. SURGICAL DECOMPRESSION There was significant mass effect with compression of the neural structures. In order to relieve neural compression, it was necessary to perform a decompressive laminectomy, with decompression of the spinal canal and bilateral lateral recesses. Note that the scope of such decompression was significantly more extensive than the minimal exposure necessary to perform an interbody fusion, as there was extreme facet arthropathy with near complete collapse of the disk spaces and severe stenosis cause by the hyperthrophic joint facets. At this point of the procedure the operative microscope was draped in the usual sterile fashion and brought to the field. The rest of the surgical procedure was performed using microdissection technique with the exception of the closure. The margins of the previous laminectomy were exposed. Under the operating microscope, a redo left decompressive laminectomy was carried out at L4-L5 as follow: given the previous laminectomy and significant scaring which was theathering the dural sac, it was necessary to further drill the facet to allow propper expossure of the disk. The laminae, base of the spinous processes and facets were carefully drilled exposing the ligamentum flavum. The facets were abnormal. A disk protusion was compressing the neural structures and exiting nerve roots. A near complete facetectomy was necessary resulting in further mechanical instability. The ligamentum flavum appeared hypertrophic, which in combination to scar tissue resulted on mass effect on the dorsal surface of the neural structures. The superior free border of the ligamentum flavum was elevated with a ligament dissector and the ligamentum flavum and scar tissue were removed with a 3 and 4 mm Kerrison forceps. The scar tissue and ligament were very adherent to the dural sac and during the dissection, and extreme care was taken during the dissection. The exiting nerve roots were identified, and a wide foraminotomy was performed with a Kerrison in their trajectory towards the neural foramen. Epidural veins located laterally to the dural sac were coagulated with the bipolar cautery, and then incised using microscissors. Gentle medial retraction of the dural sac allowed me to expose the disc space for the discectomy. Upon completion of the discectomy, an excellent decompression of the neural structures was achieved. The dura was very thinned. A durotomy or CSF leak did not occur. INTERBODY ARTHRODHESIS In order to correct the narrowing of the disk space and maintain distraction of the space, and to achieve a solid interbody fusion, it was necessary the insertion of an interbody device into the disk space. Otherwise, the disk space would collapse, compromising the result of the surgical procedure. At this point of the procedure, the annulus fibrosus of the disk was carefully coagulated with a bipolar cautery and incised using an 11 bladed knife. Then, a microdiscectomy was carried out in a standard fashion using a combination of straight and up-biting pituitary forceps. A reverse angle curette was applied underneath the posterior longitudinal ligament, and used to push the disk fragments into the disk space, so they can be safely removed with a pituitary forceps. Once the discectomy was completed, it was necessary to decorticate the endplates, in order to eliminate the cartilaginous endplate and to expose healthy bone appropriate to perform the interbody fusion. The endplates at L4- L5 were then thoroughly decorticated using increasing size bone marleni and ring curets, eliminating the cartilaginous fragments from both, the superior and inferior endplates. A disk space distractor was applied to the pedicle screws and gentle distraction was applied. This maneuver was assisted by the use of a disk distractor. Increased motility was noted at the disk, which was consistent with instability due to facet arthropathy. Once a thorough preparation of the disk space was achieved, the disk space was irrigated with antibiotic solution, and the interbody fusion was performed by carefully impacting an expandable PPEK cages filled with autologous bone graft. The cage was then deployed underfluroscopic visualization. A solid position of the cage with good purchase was achieved. The position of the cage was assessed anatomically with a probe and radiologically with the C-arm. POSTEROLATERAL FUSION The posterolateral fusion is a critical component to the procedure, to prevent future fatigue and failure of the instrumental fixation. Initially, the transverse processes of the vertebral bodies, lateral surface of the facets and the lateral gutters of the spine were carefully cleaned, eliminating all soft tissue and muscle attachments. The area was then irrigated with a large amount of antibiotic solution. Subsequently, the transverse processes, lateral surface of the facets, and lateral gutters of the spine were thoroughly decorticated using the TPS drill with a 5mm cutting cici, exposing cancellous bone, in preparation for the posterolateral fusion. The incision was again irrigated with antibiotic solution. Then, the posterolateral fusion was then performed by carefully packing the lateral gutters of the spine at L4-L5 with autologous iliac crest bone combined with demineralized bone matrix. I packed as much bone as possible. COMPLETION OF THE INSTRUMENTATION AND CLOSURE The rods were brought to the field, applied to all the screws, and the screw caps were sequentially applied. Compression was performed between the pedicle screws, and final tightening of the screws was completed using a torque wrench. The incision was again thoroughly irrigated with several liters of antibiotic solution, and hemostasis secured with the bipolar cautery. A Valsalva Maneuver performed by the anesthesiologist failed to show any evidence of cerebrospinal fluid leak or bleeding. The incision was then closed in planes. 0 Vicryl was used in an interrupted fashion to close the thoracolumbar fascia and the superficial fascia. The subcutaneous tissue was then approximated using 3-0 Vicryl in an interrupted fashion. Special care was taken to avoid space. The skin was then closed with 4-0 Vicryl and 3-0 Ethylon in a running, subcuticular fashion. Each plane of closure was irrigated with antibiotic solution. At the end of the procedure the sponge, needle and instrument counts were all correct. Estimated blood loss was 200 cc. No blood transfusion was given. The entire procedure was performed using continuous electrophysiological monitoring of the somatosensorial evoked potentials and EMG. The patient received prophylactic antibiotics. The patient was then extubated and transferred to the recovery room in stable condition. John Smith MD Apr 03, 2017 16:38
[2017-04-03] MEDS ORDERED: MORPHINE SULFATE 4 MG/ML INJ IV PUSH PRN ×2 (16:45)
[2017-04-03] MEDS ORDERED: SODIUM CHLORIDE 0.9% FLUSH 5 ML FLUSH IVF PRN (16:45)
[2017-04-03] MEDS ORDERED: diphenhydrAMINE HCL 50 MG/ML VIAL IV PRN (16:45)
[2017-04-03] MEDS ORDERED: ACETAMIN 325 MG/BUTALBITAL 50 MG/CAFFEINE 40 MG TAB PO PRN (17:15)
[2017-04-03] MEDS ORDERED: *morphine SULFATE 8 MG/ML PERIprocedure ONLY ONE (17:20)
[2017-04-03] MEDS: HYDROmorphone HCL PCA 6 MG/30 ML IV SCH (17:24)
[2017-04-03] MEDS: NS + KCL 20 MEQ INJ 1,000 ML IV SCH (17:24)
[2017-04-03] MEDS ORDERED: fentaNYL CITRATE 250 MCG/5 ML AMP ONE (17:28)
[2017-04-03] MEDS ORDERED: SUGAMMADEX SODIUM 200 MG/2 ML VIAL IV PUSH ONE ×2 (17:28)
[2017-04-03] MEDS ORDERED: DO NOT ADM ANY ANTICOAGULANT DRUGS PRN (17:30)
--- NOTE | 2017-04-03 17:52 | RADRPT ---
EXAM DATE/TIME: 04/03/2017 16:04 [facility] COMPARISON: No previous studies available for comparison. INDICATIONS : L4/L5 fusion. MEDICAL HISTORY : None. SURGICAL HISTORY : None. ENCOUNTER: Initial ACUITY: 1 day PAIN SCORE: Non-responsive. LOCATION: Lumbar spine. FINDINGS: Two view examination was performed from the OR. There are transpedicular screws at the L4 and L5 lev els and a stabilization device at the L5-S1 disc level. The hardware appears well placed. The stabili zation device is asymmetrically positioned. CONCLUSION: Status post stabilization at the L4-L5 level. Matt Brady MD on April 03, 2017 at 17:46 Board Certified Radiologist. This report was verified electronically.
[2017-04-03] MEDS: ceFAZolin 2 GM PREMIX 50 ML IV SCH (18:00)
--- NOTE | 2017-04-03 19:14 | MH ---
cc: CAMILA ABDI DATE OF ADMISSION: 04/03/2017 CHIEF COMPLAINT ON ADMISSION: Numbness and tingling of her left leg, foot drop left foot. TRAVEL IN THE LAST THIRTY DAYS: None. HISTORY OF PRESENT ILLNESS: This is a pleasant 86-year-old white female who presented to the emergency room with left foot drop. She recently had a compressive laminectomy per Dr. Smith approximately two weeks ago and saw him in the office approximately five days ago with numbness and tingling in her left leg. According to the record, she was having difficulty walking and pain was intense. She also noted low back pain that was radiating down her leg. The patient was seen and continued to be monitored per Dr. Smith. The patient continued to have increased pain and the weakness in her foot got to the point that she could not lift it at all. She then came to the emergency room for further evaluation. The patient was seen per Dr. Smith and was taken to surgery from the emergency room department for a re-do on her laminectomy. Imaging studies showed degenerative changes and a left central protrusion of L4-5 with mass effect at the L5 nerve root and abutment of the S1 nerve root. This was noted to be anterior to the hemilaminectomy site. Currently the patient is being seen in the post-anesthesia care unit setting postop. She is drowsy, borderline lethargic, but is able to speak and answer very simple questions. Most of the history is being gathered from the record. The patient currently is complaining of some low back pain. She has a Dilaudid LOOKBACK COORDINATOR pump that is being used with her respirations being monitored. PAST MEDICAL HISTORY: According to the record: 1. Skin cancer. 2. Bilateral hearing aids. The patient is very hard of hearing. 3. Gastroesophageal reflux disease (GERD). 4. Hypertension. 5. Sciatica. 6. Degenerative disc disease. PAST SURGICAL HISTORY: 1. Bladder. 2. Hysterectomy. 3. Recent spinal decompression and laminectomy on 03/17/2017. 4. Cholecystectomy. ALLERGIES: 1. CODEINE. CODEINE CAUSES NAUSEA AND VOMITING 2. PENICILLIN. THE PATIENT STATES HER PENICILLIN ALLERGY CAUSES HER NAUSEA, AND ACCORDING TO THE RECORD, RASH. SULFA CAUSES RASH. ACTIVE MEDICATIONS: 1. Gabapentin. 2. Tramadol. 3. Nitroglycerin sublingual. 4. Metoprolol. 5. Nexium. 6. Fioricet. 7. Aspirin. 8. Norvasc. 9. Aldactone. 10. Premarin. SOCIAL HISTORY: No history of tobacco, alcohol or illicit drug use. The patient's daughter is currently at the hospital for supportive care with her. REVIEW OF SYSTEMS: A twelve-point review was done with limitations. Symptoms include low back pain, numbness and tingling of the left leg and the left foot. Left foot drop. Generalized weakness causing difficulty ambulating. Pain in the left leg and radiating down the back of her leg. Recent decompressive laminectomy surgery approximately two weeks ago. Other systems negative or unremarkable for now. PHYSICAL EXAMINATION: VITAL SIGNS: Temperature is 97.8, pulse 77, respirations 16, blood pressure 137/73, 02 saturation 97% on room air in the emergency room and currently has 02 at two liters in the post-anesthesia care unit. GENERAL: Drowsy white female looks to be her stated age resting on the stretcher. She is responding to simple commands but limited conversation immediately postop. SKIN: Pale, warm and dry. HEAD, EYES, EARS, NOSE, THROAT: Normocephalic and atraumatic. Pupils equal, round and reactive to light and accommodation. The mucous membranes are slightly dry and pink. NECK: The neck is supple. CARDIOVASCULAR: S1 and S2. Rhythm is regular. No murmurs, rubs or gallops. She has no edema. Her extremities are warm. PULMONARY: Lung sounds have low volumes except when directed for deep breaths. She has a mild minimal expiratory wheeze noted and some mild diminished lung sounds. ABDOMEN: Round, soft, nontender, nondistended. Bowel sounds are present. MUSCULOSKELETAL: She moves her extremities with purpose. Her hand keying machine operator are equal. She has increased movement in the right leg compared to the left but she is able to move her left toes and weakly moves her left foot on command. NEUROLOGIC: Her voice is clear. She is drowsy immediately status post her laminectomy but does respond. Her left foot she moves toes and has weak movement on command. PSYCHOLOGICAL: Mood and affect are appropriate. DIAGNOSTIC DATA: White blood cell count 10.1, RBCs 4.45, hemoglobin 13.8, hematocrit 40.6, platelet count 322,000. Chemistries: Sodium 136, potassium 3.5, chloride 98, carbon dioxide 33.6, anion gap 4, BUN 15, creatinine 0.55. IMAGING STUDIES: Imaging studies show her lumbar spine x-rays to be status post stabilization of L4 and L5 levels. MRI shows degenerative changes and postsurgical changes with left central perfusion of L4-5 with mass effect on the L5 nerve root and abutment of the S5 nerve root. This is noted anterior to the hemilaminectomy site. ASSESSMENT: 1. Left foot drop with numbness and tingling of the left leg. 2. Left central protrusion of L4-5 with mass effect. 3. Low back pain with left-sided sciatica. 4. The patient is status post her second lumbar laminectomy. 5. History of hypertension. 6. Acute on chronic pain. 7. History of chest pain. PLAN: 1. Monitor her medical management. 2. Dr. Smith was consulted for his expert opinion and has just finished her surgical procedure for a second laminectomy. 3. LOOKBACK COORDINATOR pump with Dilaudid for pain management. 4. IV fluids for gentle hydration. 5. Neuro checks q. 4. 6. Vital signs q.4. 7. Intake and output. 8. SCDs for DVT prophylaxis. 9. Medications have been reconciled. 10. Postop orders will be managed per neurosurgeon as well as for pain management. 11. Outpatient medications as warranted have been re-started. 12. The patient has been NPO up to this point but after she is awake, she will be able to have clear liquids and advance diet as tolerated. 13. Will monitor her labs in the morning. 14. She is currently being placed in the surgical intensive care unit for close monitoring. She is full code, full aggressive care to my knowledge. We will continue to follow. Dictated by MARIA LUISA Linares. Camila Abdi MD JP/JENY /6:12 PM /6:49 PM Patient was seen and examined yesterday in the PACU as above [id number] time spent with patient Chart was reviewed and some of all records were reviewed Discussed with ER physician in detail Discussed with patient Appreciated neurosurgical input and help Plan of care discussed with MARIA LUISA in detail MTDD
[2017-04-03 20:00] VITALS: BP 121/61; PULSE 82; RESP 18; TEMP 98.7; O2SAT 94
[2017-04-03] MEDS: SODIUM CHLORIDE 0.9% FLUSH 5 ML FLUSH IVF SCH (20:31)
[2017-04-03] MEDS ORDERED: CHLORHEXIDINE GLUCONATE 4% SOLN 120 ML BTL TOP SCH (21:00)
[2017-04-03] MEDS ORDERED: SODIUM CHLORIDE 0.9% FLUSH 10 ML FLUSH IV FLUSH SCH (21:00)
[2017-04-03] MEDS ORDERED: DOCUSATE SODIUM 50 MG/SENNA 8.6 MG TAB PO SCH (21:00)
[2017-04-03 22:00] VITALS: PULSE 64
[2017-04-03] MEDS: PCA - TOTAL MG DILAUDID DELIVERED PER SHIFT SCH (22:00)
[2017-04-03] MEDS: METOPROLOL TARTRATE 25 MG TAB PO SCH (22:20)
[2017-04-03] MEDS: GABAPENTIN 300 MG CAP PO SCH (22:21)
[2017-04-04] VITALS (12 sets, daily range): BP systolic 100–122; BP diastolic 53–80; PULSE 59–83; RESP 11–23; TEMP 96.9–98.7; O2SAT 94–99
[2017-04-04] MEDS: NS + KCL 20 MEQ INJ 1,000 ML IV SCH ×3 (02:23→21:59)
[2017-04-04] MEDS: ceFAZolin 2 GM PREMIX 50 ML IV SCH ×2 (02:23→10:25)
[2017-04-04 05:56] LABS: AUTOMATED NEUTROPHIL # 9.5 TH/MM3 (1.8-7.7); BASOPHIL % 0.2 % (0.0-2.0); EOSINOPHIL % 0.1 % (0.0-4.0); HEMATOCRIT 30.9 % (35.0-46.0); HEMO FLAGS DIFF FINAL; LYMPH % 9.3 % (9.0-44.0); LYMPHOCYTE # 1.1 TH/MM3 (1.0-4.8); MEAN CELL VOLUME 92.1 FL (80.0-100.0); MEAN CORPUSCULAR HEMOGLOBIN 31.5 PG (27.0-34.0); MEAN CORPUSCULAR HGB CONC 34.2 % (32.0-36.0); MONO % 8.5 % (0.0-8.0); NEUT % 81.9 % (16.0-70.0); PLATELET COUNT 252 TH/MM3 (150-450); RED BLOOD COUNT 3.35 MIL/MM3 (4.00-5.30); RED CELL DISTRIBUTION WIDTH 12.6 % (11.6-17.2); WHITE BLOOD COUNT 11.7 TH/MM3 (4.0-11.0)
[2017-04-04] MEDS: PCA - TOTAL MG DILAUDID DELIVERED PER SHIFT SCH ×3 (06:00→21:59)
[2017-04-04] MEDS: SODIUM CHLORIDE 0.9% FLUSH 5 ML FLUSH IVF SCH ×2 (08:33→21:00)
[2017-04-04] MEDS ORDERED: NON-FORMULARY DRUG (Esomeprazole DR (Nexium) 40 MG) PO SCH (09:00)
[2017-04-04] MEDS ORDERED: amLODIPine BESYLATE 5 MG TAB PO SCH (09:00)
[2017-04-04 09:01] LABS: BICARBONATE 29.4 MEQ/L (21.0-32.0); POTASSIUM 3.9 MEQ/L (3.5-5.1)
[2017-04-04] MEDS: GABAPENTIN 300 MG CAP PO SCH ×2 (10:25→22:00)
[2017-04-04] MEDS: PANTOPRAZOLE SODIUM 40 MG VIAL IVP SCH (10:26)
[2017-04-04] MEDS: ESTROGENS CONJUGATED 0.625 MG TAB PO SCH (10:26)
[2017-04-04] MEDS: METOPROLOL TARTRATE 25 MG TAB PO SCH ×2 (10:26→22:01)
[2017-04-04] MEDS: SPIRONOLACTONE/HCTZ 25 MG/25 MG TAB PO SCH (10:26)
[2017-04-04] MEDS: HYDROmorphone HCL PCA 6 MG/30 ML IV SCH (10:43)
--- NOTE | 2017-04-04 10:57 | HHI.NSPN ---
(Desi Nunez) Note Status Status: Progress Note (Desi Nunez) Interval History Interval History Ms. Owens is a 86 y/o female who recently underwent a L4-5 laminectomy with microdiscectomy on 03/17/17. She presented to the ED with progressive left foot weakness. Follow up MRI L spine showed a recurrent disc herniation and spondylolisthesis. She underwent redo L4-5 laminectomy interbody arthrodesis using PEEK cage and autologous bone graft, L4-L5 instrumental fixation using transpedicular screws and rods, microsurgical dissection on 04/03/17. 04/04: POD 1, surgical pain controlled, stable left weak dorsiflexion. denies chest pain, difficulty breathing. (Desi Nunez) Labs, Micro, & Vital Signs Results Date Time Temp Pulse Resp B/P Pulse Ox O2 Delivery O2 Flow Rate FiO2 04/04/17 10:43 14 04/04/17 08:08 94 Nasal Cannula 2.00 04/04/17 08:00 63 04/04/17 08:00 98.0 63 18 121/53 95 04/04/17 07:00 95 Nasal Cannula 2.00 04/04/17 06:00 14 04/04/17 06:00 64 04/04/17 04:00 60 04/04/17 04:00 98.7 64 16 122/55 96 04/04/17 02:00 64 04/04/17 00:00 65 04/04/17 00:00 98.6 64 21 111/54 96 04/03/17 22:00 64 04/03/17 22:00 12 04/03/17 20:00 98.7 82 18 121/61 94 04/03/17 20:00 82 04/03/17 19:00 97 Nasal Cannula 3.00 04/03/17 18:30 97.6 91 18 99/56 95 Nasal Cannula 2 124/55 04/03/17 18:15 90 14 97 Nasal Cannula 2 118/57 04/03/17 18:00 93 19 100/57 96 Nasal Cannula 2 123/61 04/03/17 17:45 87 14 103/59 98 Nasal Cannula 2 04/03/17 17:30 89 17 103/58 98 Nasal Cannula 3 123/58 04/03/17 17:24 14 04/03/17 17:15 87 17 103/59 99 Nasal Cannula 3 118/52 04/03/17 17:14 98.3 88 15 114/73 99 Nasal Cannula 3 121/53 04/03/17 12:36 77 16 137/73 97 04/04/17 07:00 Intake Total 4087 ml Output Total 2605 ml Balance 1482 ml Constitutional Vital Signs Date Time Temp Pulse Resp B/P Pulse Ox O2 Delivery O2 Flow Rate FiO2 04/04/17 10:43 14 04/04/17 08:08 94 Nasal Cannula 2.00 04/04/17 08:00 63 04/04/17 08:00 98.0 63 18 121/53 95 04/04/17 07:00 95 Nasal Cannula 2.00 04/04/17 06:00 14 04/04/17 06:00 64 04/04/17 04:00 60 04/04/17 04:00 98.7 64 16 122/55 96 04/04/17 02:00 64 04/04/17 00:00 65 04/04/17 00:00 98.6 64 21 111/54 96 04/03/17 22:00 64 04/03/17 22:00 12 04/03/17 20:00 98.7 82 18 121/61 94 04/03/17 20:00 82 04/03/17 19:00 97 Nasal Cannula 3.00 04/03/17 18:30 97.6 91 18 99/56 95 Nasal Cannula 2 124/55 04/03/17 18:15 90 14 97 Nasal Cannula 2 118/57 04/03/17 18:00 93 19 100/57 96 Nasal Cannula 2 123/61 04/03/17 17:45 87 14 103/59 98 Nasal Cannula 2 04/03/17 17:30 89 17 103/58 98 Nasal Cannula 3 123/58 04/03/17 17:24 14 04/03/17 17:15 87 17 103/59 99 Nasal Cannula 3 118/52 04/03/17 17:14 98.3 88 15 114/73 99 Nasal Cannula 3 121/53 04/03/17 12:36 77 16 137/73 97 04/04/17 07:00 Intake Total 4087 ml Output Total 2605 ml Balance 1482 ml (Desi Nunez) Review of Systems/Exam Exam Ms. Owens is alert, awake and oriented to time, place and person. Speech is fluent. Cranial nerve examination: pupils equal, round and reactive to light. Facial motor are normal and symmetrical. Neck is soft and supple Muscle strength is normal in all muscle groups of both upper and lower extremities, with 3 to 4- left dorsiflexion Sensory examination is intact to light touch in both the upper and lower extremities. bilateral plantar flexion response. (Desi Nunez) Medications Current Medications Current Medications Medications (Trade) Dose Ordered Sig/Raysa Route PRN Reason Start Time Stop Time Status Last Admin Dose Admin Chlorhexidine Gluconate (Hibiclens 4% Top Soln) 1 applic HS TOP 04/03/17 21:00 04/04/17 21:01 Ondansetron HCl (Zofran Inj) 4 mg Q6H PRN IVP NAUSEA OR VOMITING 04/03/17 16:00 Senna/Docusate Sodium (Nadege-Colace) 1 tab BID PO 04/03/17 21:00 04/03/17 22:21 Magnesium Hydroxide (Milk Of Magnesia Liq) 30 ml Q12H PRN PO MILD - MODERATE CONSTIPATION 04/03/17 16:00 Sennosides (Senokot) 17.2 mg Q12H PRN PO MODERATE - SEVERE CONSTIPATION 04/03/17 16:00 Bisacodyl (Dulcolax Supp) 10 mg DAILY PRN RECTAL SEVERE CONSITIPATION 04/03/17 16:00 Lactulose (Lactulose Liq) 30 ml DAILY PRN PO SEVERE CONSITIPATION 04/03/17 16:00 Amlodipine Besylate (Norvasc) 5 mg DAILY PO 04/04/17 09:00 Estrogens Conjugated (Premarin) 0.625 mg DAILY PO 04/04/17 09:00 04/04/17 10:26 Gabapentin (Neurontin) 300 mg BID PO 04/03/17 21:00 04/04/17 10:25 Metoprolol Tartrate (Lopressor) 12.5 mg Q12HR PO 04/03/17 21:00 04/04/17 10:26 Nitroglycerin (Nitrostat Sl) 0.3 mg Q5M PRN SL CHEST PAIN 04/03/17 16:00 HCTZ/ Spironolactone (Aldactazide 25-25 Mg) 1 tab DAILY PO 04/04/17 09:00 04/04/17 10:26 Tramadol HCl (Ultram) 50 mg Q6H PRN PO PAIN 1-10 04/03/17 16:00 Acetaminophen/ Butalbital/ Caffeine (Fioricet 325-50-40) 1 tab Q4H PRN PO HEADACHE 04/03/17 17:15 Miscellaneous 1 ea 1 ea UNSCH PRN OTHER SEE LABEL COMMENTS 04/03/17 16:30 Potassium Chloride/Sodium Chloride (NS + KCl 20 Meq Inj) 1,000 ml @ 100 mls/hr Q10H IV 04/03/17 16:31 04/04/17 02:23 IV Flush (NS Flush) 2 ml UNSCH PRN IVF FLUSH AFTER USING IV ACCESS 04/03/17 16:45 IV Flush (NS Flush) 2 ml BID IVF 04/03/17 21:00 04/04/17 08:33 Pantoprazole Sodium (Protonix Inj) 40 mg DAILY IVP 04/04/17 09:00 04/04/17 10:26 Morphine Sulfate (Morphine Inj) 2 mg Q2H PRN IV PUSH PAIN SCALE 1 TO 6 04/03/17 16:45 Morphine Sulfate (Morphine Inj) 4 mg Q2H PRN IV PUSH PAIN SCALE 7 TO 10 04/03/17 16:45 Acetaminophen (Tylenol) 650 mg Q4H PRN PO TEMPERATURE > 101.5 F 04/03/17 16:45 Naloxone HCl (Narcan Inj) 0.4 mg UNSCH PRN IV RESPIRATORY RATE LESS THAN 10 04/03/17 16:45 Diphenhydramine HCl (Benadryl Inj) 25 mg Q6H PRN IV ITCHING 04/03/17 16:45 Hydromorphone HCl (Dilaudid SHOTGUN SHELL ASSEMBLY MACHINE ADJUSTER Inj) 6 mg UNSCH IV 04/03/17 16:45 04/04/17 10:43 SHOTGUN SHELL ASSEMBLY MACHINE ADJUSTER Dosage Infused (Pha) 1 Q8HR .XX 04/03/17 22:00 04/04/17 06:00 Miscellaneous Information ALL NURSING DEPARTME... UNSCH PRN .XX SEE LABEL COMMENTS 04/03/17 17:30 04/04/17 17:29 (Desi Nunez) Medical Decision Making MDM Remarks 86 y/o female s/p L4-5 redo laminectomy with interbody arthrodesis 04/03/17, POD 1 , doing well, neuro stable (Desi Nunez) Plan Plan Remarks cont SHOTGUN SHELL ASSEMBLY MACHINE ADJUSTER for pain control PT, clear to start mobilizing OOB, LSO brace on, cont nonchemical dvt prophylaxis (Desi Nunez) Attending Statement Neuro. Neuro checks in a serial fashion. Respiratory. pulmonary toilette, nasotracheal suction, and breathing treatments with nebulizers. PT and OT eval Nutrition. NPO Renal. monitor closely urine output, BUN and creatinine Endocrine. Monitor serial Acu checks and SSI for tight control ID monitor for signs of infection Protonix for stress ulcer prophylaxis Luis hose and SCD's for DVT prophylaxis The exam, history, and the medical decision-making described in the above note were completed with the assistance of the mid-level provider. I reviewed and agree with the findings presented. I attest that I had a [id number] encounter with the patient on the same day, and personally performed and documented my assessment and findings in the medical record. (John Smith MD) Desi Nunez Apr 04, 2017 10:57 John Smith MD Apr 05, 2017 08:42
[2017-04-04] MEDS: BISACODYL EC 5 MG TABEC PO SCH (12:15)
--- NOTE | 2017-04-04 15:19 | HHI.PR ---
Subjective Remarks resting in bed up in chair X 2 today. schwraz catheter , dc today moving lt. foot and leg. (Shanta Reyna) Objective Objective Results - Vital Signs Date Time Temp Pulse Resp B/P Pulse Ox O2 Delivery O2 Flow Rate FiO2 04/04/17 12:00 97.8 59 11 100/53 99 Arterial Line 04/04/17 10:43 14 04/04/17 08:08 94 Nasal Cannula 2.00 04/04/17 08:00 63 04/04/17 08:00 98.0 63 18 121/53 95 04/04/17 07:00 95 Nasal Cannula 2.00 04/04/17 06:00 14 04/04/17 06:00 64 04/04/17 04:00 60 04/04/17 04:00 98.7 64 16 122/55 96 04/04/17 02:00 64 04/04/17 00:00 65 04/04/17 00:00 98.6 64 21 111/54 96 04/03/17 22:00 64 04/03/17 22:00 12 04/03/17 20:00 98.7 82 18 121/61 94 04/03/17 20:00 82 04/03/17 19:00 97 Nasal Cannula 3.00 04/03/17 18:30 97.6 91 18 99/56 95 Nasal Cannula 2 124/55 04/03/17 18:15 90 14 97 Nasal Cannula 2 118/57 04/03/17 18:00 93 19 100/57 96 Nasal Cannula 2 123/61 04/03/17 17:45 87 14 103/59 98 Nasal Cannula 2 04/03/17 17:30 89 17 103/58 98 Nasal Cannula 3 123/58 04/03/17 17:24 14 04/03/17 17:15 87 17 103/59 99 Nasal Cannula 3 118/52 04/03/17 17:14 98.3 88 15 114/73 99 Nasal Cannula 3 121/53 I/O 04/03/17 04/03/17 04/03/17 04/04/17 04/04/17 04/04/17 07:00 15:00 23:00 07:00 15:00 23:00 Intake Total 3242 ml 845 ml 1160 ml Output Total 1585 ml 1020 ml 900 ml Balance 1657 ml -175 ml 260 ml Intake Oral 60 ml 120 ml 360 ml IV Total 682 ml 725 ml 800 ml Other 2500 ml Output Urine Total 1225 ml 1000 ml 875 ml Stool Total 0 ml 0 ml Drainage Total 60 ml 20 ml 25 ml Estimated Blood Loss 300 ml # Bowel Movements 0 (Shanta Reyna) Result Diagram: 04/04/17 0504 04/04/17 0750 ROS General: Fatigue, Weakness, Other (10 point ROS done, positives noted.) GI: Other (requesting softer fodds today. Monitor swallow) Neuro/MS: Other (S/P laminectomy) (Shanta Reyna) Physical Exam Physical Exam PHYSICAL EXAMINATION GENERAL: This is a well-developed, elderly female who appears to be in no acute distress. She is alert and awake, talkative HEAD: Normocephalic OROPHARYNGEAL: Oropharynx clear, food dry, ordered softer food and soup for super. NECK: Supple. Trachea midline without deviation. CARDIAC: Regular rhythm, regular rate, S1 and S2 are heard LUNGS: Clear to auscultation bilaterally. No wheeze ABDOMEN: round, soft, nontender EXTREMITIES: no edema. Pulses soft NEUROLOGICAL: Patient mood and affect talkative SKIN:Warm, dry (Shanta Reyna) A/P Assessment and Plan 1. Left foot drop with numbness and tingling of the left leg. 2. Left central protrusion of L4-5 with mass effect. 3. Low back pain with left-sided sciatica. 4. The patient is status post her second lumbar laminectomy. 5. History of hypertension. 6. Acute on chronic pain. 7. History of chest pain. vital signs reviewed, normal trends labs reviewed, leukocytosis mild, 11.7, anemia, 10.6, no active bleeding noted. S/P redo lumbar laminectomy, able to move lt. foot and toes, moving lt leg randomly. Encouraged to continue to be mobile, OOB brace on when up. post op instructions and pain management per surgeon. LBP and sciatica pain resolved. Dressing CDI. Hypertension, medical management, monitor BP chest pain last admission, none this admission. No SOB, encouraged to turn , cough, deep breath. Transfer to [facility]. Nutrition, activity labs in am. D/W nurse D/W Dr. Abdi, seen on his behalf D/W patient. (Shanta Reyna) Assessment and Plan Patient seen and examined as above [id number] time spent with patient Labs reviewed Medications reviewed Patient has left foot drop Discussed with RN Discussed with patient and family at bedside Discussed with SMALL BUSINESS CONSULTANT about plan of care Plan for neurology consult Appreciate neurosurgery input and help (Lisbet Abdi MD) Shanta Reyna Apr 04, 2017 15:19 Lisbet Abdi MD Apr 04, 2017 15:48
[2017-04-04] MEDS: amLODIPine BESYLATE 5 MG TAB PO SCH (21:00)
[2017-04-04 21:58] LABS: AUTOMATED NEUTROPHIL # 9.1 TH/MM3 (1.8-7.7); BASOPHIL % 0.3 % (0.0-2.0); EOSINOPHIL # 0.1 TH/MM3 (0-0.4); HEMO FLAGS DIFF FINAL; LYMPH % 14.5 % (9.0-44.0); LYMPHOCYTE # 1.8 TH/MM3 (1.0-4.8); MEAN CELL VOLUME 92.7 FL (80.0-100.0); MEAN CORPUSCULAR HEMOGLOBIN 30.4 PG (27.0-34.0); MEAN CORPUSCULAR HGB CONC 32.8 % (32.0-36.0); MONO % 10.3 % (0.0-8.0); NEUT % 73.9 % (16.0-70.0); PLATELET COUNT 282 TH/MM3 (150-450); RED BLOOD COUNT 3.99 MIL/MM3 (4.00-5.30); RED CELL DISTRIBUTION WIDTH 12.6 % (11.6-17.2); WHITE BLOOD COUNT 12.3 TH/MM3 (4.0-11.0)
[2017-04-04 22:18] LABS: POTASSIUM 3.6 MEQ/L (3.5-5.1)
[2017-04-05 00:20] VITALS: BP 129/70; PULSE 83; RESP 17; TEMP 97.1; O2SAT 96
[2017-04-05] MEDS: PCA - TOTAL MG DILAUDID DELIVERED PER SHIFT SCH ×3 (06:00→20:19)
[2017-04-05 07:47] LABS: HEMATOCRIT 36.5 % (35.0-46.0); MEAN CELL VOLUME 92.9 FL (80.0-100.0); MEAN CORPUSCULAR HEMOGLOBIN 30.7 PG (27.0-34.0); MEAN CORPUSCULAR HGB CONC 33.1 % (32.0-36.0); PLATELET COUNT 241 TH/MM3 (150-450); RED BLOOD COUNT 3.93 MIL/MM3 (4.00-5.30); RED CELL DISTRIBUTION WIDTH 12.5 % (11.6-17.2); REVIEW FLAG FINAL
[2017-04-05 08:00] VITALS: BP 122/63; PULSE 80; RESP 20; TEMP 97.2; O2SAT 95
--- NOTE | 2017-04-05 08:28 | MB ---
cc: CAMILA HUNTLEY DATE OF CONSULTATION: 04/04/2017 HISTORY OF PRESENT ILLNESS The patient is an 86-year-old female seen in neurological consultation because of left foot drop. Around March 17 she had a laminectomy for an L4-5 disc herniation. She went home and she may have overdone physical activity as she was caring for her and she subsequently developed some left foot drop. This was apparently noted 6-7 days ago with some numbness. She saw her surgeon Dr. Smith and her symptoms did not improve. She was subsequently brought to the hospital on 04/03/2017, yesterday. A follow-up MRI showed recurrent disc protrusion at L4-5, probably compressing L5 and S1 nerve roots. She was taken to the OR and she is now recuperating and starting to show some improvement of her left foot drop. The patient has a history of GERD and hypertensive disease but overall she had been doing well medically. She is the caregiver for her . NEUROLOGICAL EXAMINATION On exam the patient is alert, pleasant, oriented. Ocular movements and visual weaver are full. No facial weakness. Speech is appropriate. She is using the upper extremities well. Her daughter who is a physical therapist was at bedside. We sat the patient on the toilet and she was able to help herself with some assistance. I observed that her left foot drop is starting to improve. There is a little bit of dorsiflexion and she has better foot inversion and eversion. Her ankle reflex is present on the right but probably absent on the left. Plantar responses flexor. Knee reflexes present. ASSESSMENT AND RECOMMENDATIONS Status post a second laminectomy within an approximately 15-day period of time. After the initial episode she went home and was doing more physical activities, bending over her brace as she was helping her and probably reinjured the L4-5 disc. In this early post-op she is showing some signs of recovery and this is encouraging. She is followed closely by neurosurgery and she is under rehab. I advised the patient to be cautious and follow the rehab instructions more closely. She normally follows with Dr. Fung in the office and I suggested that she arrange for a follow-up with Dr. Fung in a couple of weeks after discharge. She may need follow-up MRI of the lumbar spine as well as EMG studies, etc. She is going to need approximately three months or so for her maximum physical activity to be resumed. Thank you for asking us to assist in her care. MD KAILA Diamond/ALESSIO /7:33 PM /8:21 AM
[2017-04-05] MEDS: PANTOPRAZOLE SODIUM 40 MG VIAL IVP SCH (08:44)
[2017-04-05] MEDS: NS + KCL 20 MEQ INJ 1,000 ML IV SCH ×3 (08:45→20:20)
[2017-04-05] MEDS: SPIRONOLACTONE/HCTZ 25 MG/25 MG TAB PO SCH (08:45)
[2017-04-05] MEDS: ESTROGENS CONJUGATED 0.625 MG TAB PO SCH (08:45)
[2017-04-05] MEDS: GABAPENTIN 300 MG CAP PO SCH ×2 (08:45→20:19)
[2017-04-05] MEDS: BISACODYL EC 5 MG TABEC PO SCH (08:46)
[2017-04-05] MEDS: METOPROLOL TARTRATE 25 MG TAB PO SCH ×3 (08:46→17:57)
[2017-04-05] MEDS: SODIUM CHLORIDE 0.9% FLUSH 5 ML FLUSH IVF SCH ×2 (08:53→20:19)
[2017-04-05 09:21] VITALS: O2SAT 66
[2017-04-05 12:00] VITALS: BP 109/64; PULSE 84; RESP 20; TEMP 96.9; O2SAT 95
[2017-04-05] MEDS: HYDROmorphone HCL PCA 6 MG/30 ML IV SCH (14:04)
[2017-04-05 16:00] VITALS: BP 102/68; PULSE 81; RESP 20; TEMP 98.2; O2SAT 96
--- NOTE | 2017-04-05 16:49 | HHI.NSPN ---
(Woody Mendez) History Chief Complaint: Back pain (Woody Mendez) Interval History Ms. Owens is a 86 y/o female who recently underwent a L4-5 laminectomy with microdiscectomy on 03/17/17. She presented to the ED with progressive left foot weakness. Follow up MRI L spine showed a recurrent disc herniation and spondylolisthesis. She underwent redo L4-5 laminectomy interbody arthrodesis using PEEK cage and autologous bone graft, L4-L5 instrumental fixation using transpedicular screws and rods, microsurgical dissection on 04/03/17. 04/04: POD 1, surgical pain controlled, stable left weak dorsiflexion. denies chest pain, difficulty breathing. 04/05: POD 2, back pain improved after taking medication. (Woody Mendez) System Review Comments Respiratory: Denies any shortness of breath. Cardiovascular: Denies any chest pain, palpitation or irregular heartbeat. Gastrointestinal: Constipation. Denies any abdominal pain, nausea, vomiting or incontinence of stool. Genitourinary: Denies any incontinence of urine. Musculoskeletal: Back pain improved after medication. Some pain to the outer left lower leg. Neurological: Numbness to the outer left lower leg. Denies any headache, dizziness or tingling. (Woody Mendez) Exam Results Vital Signs Date Time Temp Pulse Resp B/P Pulse Ox O2 Delivery O2 Flow Rate FiO2 04/05/17 16:00 98.2 81 20 102/68 96 04/04/17 08:08 Nasal Cannula 2.00 Intake and Output 04/04/17 04/04/17 04/05/17 08:00 16:00 00:00 Intake Total 845 ml 1280 ml 390 ml Output Total 1020 ml 900 ml 1175 ml Balance -175 ml 380 ml -785 ml (Woody Mendez) Physical Examination AAOx3, NAD, normal affect Speech clear & appropriate Back w/intact surgical dressing, TTP, NORMAN drain to bulb suction w/serosanguinous drainage Decreased sensation to lateral left lower leg Motor strength symmetrical except for left foot drop which patient reports she has had since surgery (Woody Mendez) Lab, Micro, Other Results Allergies Coded Allergies Type Severity Reaction Last Updated Verified Codeine Allergy Unknown Nausea/Vomiting 03/31/17 Yes Penicillin Allergy Unknown Rash 03/31/17 Yes Sulfa Allergy Unknown Rash 03/31/17 Yes Recent Impressions Lumbar Spine X-Ray 04/03/17 0000 Signed Impressions: Service Date/Time: Monday, April 03, 2017 16:04 - CONCLUSION: Status post stabilization at the L4-L5 level. Matt Brady MD Lumbar Spine MRI 04/03/17 0000 Signed Impressions: Service Date/Time: Monday, April 03, 2017 10:35 - CONCLUSION: Degenerative changes and postsurgical changes are noted. There is a left central protrusion at L4-5 with mass effect on the L5 nerve roots and abutment of the S1 nerve roots. This is noted anterior to the hemilaminectomy site. Carson Vines MD //// 06:00 18:00 06:00 18:00 06:00 18:00 Intake Total 2500 ml 1587 ml 1430 ml 240 ml 360 ml Output Total 900 ml 1705 ml 2050 ml 25 ml 15 ml Balance 1600 ml -118 ml -620 ml 215 ml 345 ml Intake Oral 180 ml 630 ml 240 ml 360 ml IV Total 1407 ml 800 ml Other 2500 ml Output Urine Total 600 ml 1625 ml 2025 ml Stool Total 0 ml Drainage Total 80 ml 25 ml 25 ml 15 ml Estimated Blood Loss 300 ml # Voids 2 9 # Bowel Movements 0 0 0 Laboratory Tests Test 04/03/17 04/03/17 04/03/17 04/04/17 09:44 13:52 18:54 05:04 White Blood Count 10.1 TH/MM3 11.7 TH/MM3 Red Blood Count 4.45 MIL/MM3 3.35 MIL/MM3 Hemoglobin 13.8 GM/DL 10.6 GM/DL Hematocrit 40.6 % 30.9 % Mean Corpuscular Volume 91.2 FL 92.1 FL Mean Corpuscular Hemoglobin 31.0 PG 31.5 PG Mean Corpuscular Hemoglobin 34.0 % 34.2 % Concent Red Cell Distribution Width 12.8 % 12.6 % Platelet Count 322 TH/MM3 252 TH/MM3 Mean Platelet Volume 9.5 FL 9.4 FL Neutrophils (%) (Auto) 74.6 % 81.9 % Lymphocytes (%) (Auto) 15.6 % 9.3 % Monocytes (%) (Auto) 8.3 % 8.5 % Eosinophils (%) (Auto) 0.8 % 0.1 % Basophils (%) (Auto) 0.7 % 0.2 % Neutrophils # (Auto) 7.5 TH/MM3 9.5 TH/MM3 Lymphocytes # (Auto) 1.6 TH/MM3 1.1 TH/MM3 Monocytes # (Auto) 0.8 TH/MM3 1.0 TH/MM3 Eosinophils # (Auto) 0.1 TH/MM3 0.0 TH/MM3 Basophils # (Auto) 0.1 TH/MM3 0.0 TH/MM3 CBC Comment DIFF FINAL DIFF FINAL Differential Comment Sodium Level 136 MEQ/L Potassium Level 3.5 MEQ/L Chloride Level 98 MEQ/L Carbon Dioxide Level 33.6 MEQ/L Anion Gap 4 MEQ/L Blood Urea Nitrogen 15 MG/DL Creatinine 0.55 MG/DL Estimat Glomerular Filtration 105 ML/MIN Rate Random Glucose 94 MG/DL Calcium Level 9.2 MG/DL Total Bilirubin 0.3 MG/DL Aspartate Amino Transf 16 U/L (AST/SGOT) Alanine Aminotransferase 21 U/L (ALT/SGPT) Alkaline Phosphatase 69 U/L Total Protein 7.3 GM/DL Albumin 3.6 GM/DL Blood Type O POSITIVE Antibody Screen NEGATIVE Crossmatch Leukocyte-Reduced Red Blood Cells Blood Bank Comment Nasal Screen MRSA (PCR) MRSA NOT DETECTED Test 04/04/17 04/04/17 04/05/17 07:50 21:25 07:01 Sodium Level 136 MEQ/L 138 MEQ/L Potassium Level 3.9 MEQ/L 3.6 MEQ/L Chloride Level 102 MEQ/L 100 MEQ/L Carbon Dioxide Level 29.4 MEQ/L 34.0 MEQ/L Anion Gap 5 MEQ/L 4 MEQ/L Blood Urea Nitrogen 6 MG/DL 6 MG/DL Creatinine 0.38 MG/DL 0.61 MG/DL Estimat Glomerular Filtration 161 ML/MIN 93 ML/MIN Rate Random Glucose 92 MG/DL 127 MG/DL Calcium Level 8.1 MG/DL 8.7 MG/DL White Blood Count 12.3 TH/MM3 10.0 TH/MM3 Red Blood Count 3.99 MIL/MM3 3.93 MIL/MM3 Hemoglobin 12.1 GM/DL 12.1 GM/DL Hematocrit 37.0 % 36.5 % Mean Corpuscular Volume 92.7 FL 92.9 FL Mean Corpuscular Hemoglobin 30.4 PG 30.7 PG Mean Corpuscular Hemoglobin 32.8 % 33.1 % Concent Red Cell Distribution Width 12.6 % 12.5 % Platelet Count 282 TH/MM3 241 TH/MM3 Mean Platelet Volume 9.3 FL 9.4 FL Neutrophils (%) (Auto) 73.9 % Lymphocytes (%) (Auto) 14.5 % Monocytes (%) (Auto) 10.3 % Eosinophils (%) (Auto) 1.0 % Basophils (%) (Auto) 0.3 % Neutrophils # (Auto) 9.1 TH/MM3 Lymphocytes # (Auto) 1.8 TH/MM3 Monocytes # (Auto) 1.3 TH/MM3 Eosinophils # (Auto) 0.1 TH/MM3 Basophils # (Auto) 0.0 TH/MM3 CBC Comment DIFF FINAL Differential Comment Vital Signs Date Time Temp Pulse Resp B/P Pulse Ox O2 Delivery O2 Flow Rate FiO2 04/05/17 16:00 98.2 81 20 102/68 96 04/05/17 12:00 96.9 84 20 109/64 95 04/05/17 09:21 66 04/05/17 08:00 97.2 80 20 122/63 95 04/05/17 06:00 18 04/05/17 00:20 97.1 83 17 129/70 96 04/04/17 21:59 18 04/04/17 20:25 98.0 75 17 100/59 95 04/04/17 17:30 96.9 83 16 105/80 96 04/04/17 16:00 97.7 66 23 113/61 97 04/04/17 16:00 66 04/04/17 14:00 80 04/04/17 14:00 14 04/04/17 12:00 97.8 59 11 100/53 99 Arterial Line 04/04/17 12:00 59 04/04/17 10:43 14 04/04/17 10:00 72 04/04/17 08:08 94 Nasal Cannula 2.00 04/04/17 08:00 63 04/04/17 08:00 98.0 63 18 121/53 95 04/04/17 07:00 95 Nasal Cannula 2.00 04/04/17 06:00 14 04/04/17 06:00 64 04/04/17 04:00 60 04/04/17 04:00 98.7 64 16 122/55 96 04/04/17 02:00 64 04/04/17 00:00 65 04/04/17 00:00 98.6 64 21 111/54 96 04/03/17 22:00 64 04/03/17 22:00 12 04/03/17 20:00 98.7 82 18 121/61 94 04/03/17 20:00 82 04/03/17 19:00 97 Nasal Cannula 3.00 04/03/17 18:30 97.6 91 18 99/56 95 Nasal Cannula 2 124/55 04/03/17 18:15 90 14 97 Nasal Cannula 2 118/57 04/03/17 18:00 93 19 100/57 96 Nasal Cannula 2 123/61 04/03/17 17:45 87 14 103/59 98 Nasal Cannula 2 04/03/17 17:30 89 17 103/58 98 Nasal Cannula 3 123/58 04/03/17 17:24 14 04/03/17 17:15 87 17 103/59 99 Nasal Cannula 3 118/52 04/03/17 17:14 98.3 88 15 114/73 99 Nasal Cannula 3 121/53 04/03/17 12:36 77 16 137/73 97 04/03/17 08:55 97.8 88 20 133/69 97 Room Air (Woody Mendez) Medical Decision Making Impression and Plan Impression: S/P L4-5 redo laminectomy with interbody arthrodesis 04/03/17, POD 2 Stable neurological exam Doing well post-operatively Plan: Will continue ELECTRIC MOTOR REPAIRING SUPERVISOR for pain control today and plan to transition to PO in the morning Serial neuro checks Mobilise patient with assistance LSO brace on when OOB PT eval & tx Pulmonary toilette, nasotracheal suction, and breathing treatments with nebulizers Protonix for stress ulcer prophylaxis Luis hose and SCD's for DVT prophylaxis Will d/c NORMAN drain (Woody Mendez) Attending Statement I have personally seen and examined the patient on the date of this note. Pertinent documentation and study results have been reviewed by the undersigned. I have personally developed the treatment plan and performed medical decision making. Agree with findings, exam, and treatment plan as noted above. There is persistent left tibialis anterior weakness on examination. The undersigned today, 2/5 strength. She appears reasonably comfortable, sitting up in bed with family in the room. Mild to moderate serosanguineous drainage from the drain. The dressing and incision are dry. No significant radiating lower extremity pain Discussed with the patient and family. Continue to wean off ELECTRIC MOTOR REPAIRING SUPERVISOR. Discussed with nursing staff today Discontinue lumbar drain (Steve Knowles MD) Woody Mendez [facility] Apr 05, 2017 16:49 Steve Knowles MD Apr 05, 2017 21:34
--- NOTE | 2017-04-05 17:14 | HHI.PR ---
Subjective Interval History Alert, oriented, pain well-controlled with IV Dilaudid, able to eat without problems, able to get to the bedside commode with assistance, still complaining of left-sided foot drop Review of Systems Constitutional Constitutional Remarks 10 systems reviewed and negative except for the above Vitals/Results Intake & Output 04/04/17 04/04/17 04/05/17 15:00 23:00 07:00 Intake Total 1280 ml 390 ml 120 ml Output Total 900 ml 1175 ml 15 ml Balance 380 ml -785 ml 105 ml Intake Oral 480 ml 390 ml 120 ml IV Total 800 ml Output Urine Total 875 ml 1150 ml Drainage Total 25 ml 25 ml 15 ml # Voids 2 4 # Bowel Movements 0 0 0 Vital Signs Vital Signs Date Time Temp Pulse Resp B/P Pulse Ox O2 Delivery O2 Flow Rate FiO2 04/05/17 16:00 98.2 81 20 102/68 96 04/05/17 12:00 96.9 84 20 109/64 95 04/05/17 09:21 66 04/05/17 08:00 97.2 80 20 122/63 95 04/05/17 06:00 18 04/05/17 00:20 97.1 83 17 129/70 96 04/04/17 21:59 18 04/04/17 20:25 98.0 75 17 100/59 95 04/04/17 17:30 96.9 83 16 105/80 96 CBC/BMP: 04/05/17 0701 04/04/17 2125 Lab Results Laboratory Tests Test 04/04/17 04/05/17 21:25 07:01 White Blood Count 12.3 TH/MM3 10.0 TH/MM3 Red Blood Count 3.99 MIL/MM3 3.93 MIL/MM3 Hemoglobin 12.1 GM/DL 12.1 GM/DL Hematocrit 37.0 % 36.5 % Mean Corpuscular Volume 92.7 FL 92.9 FL Mean Corpuscular Hemoglobin 30.4 PG 30.7 PG Mean Corpuscular Hemoglobin 32.8 % 33.1 % Concent Red Cell Distribution Width 12.6 % 12.5 % Platelet Count 282 TH/MM3 241 TH/MM3 Mean Platelet Volume 9.3 FL 9.4 FL Neutrophils (%) (Auto) 73.9 % Lymphocytes (%) (Auto) 14.5 % Monocytes (%) (Auto) 10.3 % Eosinophils (%) (Auto) 1.0 % Basophils (%) (Auto) 0.3 % Neutrophils # (Auto) 9.1 TH/MM3 Lymphocytes # (Auto) 1.8 TH/MM3 Monocytes # (Auto) 1.3 TH/MM3 Eosinophils # (Auto) 0.1 TH/MM3 Basophils # (Auto) 0.0 TH/MM3 CBC Comment DIFF FINAL Differential Comment Sodium Level 138 MEQ/L Potassium Level 3.6 MEQ/L Chloride Level 100 MEQ/L Carbon Dioxide Level 34.0 MEQ/L Anion Gap 4 MEQ/L Blood Urea Nitrogen 6 MG/DL Creatinine 0.61 MG/DL Estimat Glomerular Filtration 93 ML/MIN Rate Random Glucose 127 MG/DL Calcium Level 8.7 MG/DL Physical Exam General General Appearance: Well Nourished, Comfortable Eyes Eye Exam: Pupils Reactive Ears & Nose Ears & Nose Exam: Nasal Mucosa [place] Throat Throat Exam: Oral Mucosa [place] & Moist Neck Neck Exam: Trachea Midline Pulmonary Resp Exam: Breath Sounds Equal, No Distress Cardiology CV Exam: Normal Sinus Rhythm, Good Perfusion Gastrointestinal/Abdomen GI Exam: Soft, Non-Tender, Bowel Sounds Present Musculoskeletal MS Exam: Normal Tone MS Remarks Left foot drop Integumentary Skin Exam: Warm, Dry Extremeties Extremities Exam: No Edema Neurologic Neuro Exam: Alert, Awake, Oriented, Speech Clear Psychiatric Psych Exam: Appropriate Responses VTE Prophylaxis VTE Prophylaxis Device: SCDs Assessment/Plan Assessment/Plan Assessment Left sided L5 disc herniation Status post L4-L5 fusion on 04/03/17 Left foot drop Management Pain control Physical therapy Neurosurgery and neurology following DVT prophylaxis with sequential Discussed with patient Discussed with nurse Aime Howell MD Apr 05, 2017 17:14
[2017-04-05] MEDS: amLODIPine BESYLATE 5 MG TAB PO SCH (20:19)
[2017-04-05 20:25] VITALS: BP 117/62; PULSE 93; RESP 17; TEMP 97.6; O2SAT 96
[2017-04-06 00:30] VITALS: BP 108/61; PULSE 98; RESP 17; TEMP 98.6; O2SAT 96
[2017-04-06] MEDS: PCA - TOTAL MG DILAUDID DELIVERED PER SHIFT SCH (06:00)
[2017-04-06 08:00] VITALS: BP 121/73; PULSE 107; RESP 20; TEMP 96.2; O2SAT 96
[2017-04-06] MEDS: SODIUM CHLORIDE 0.9% FLUSH 5 ML FLUSH IVF SCH ×2 (09:00→21:00)
[2017-04-06] MEDS: GABAPENTIN 300 MG CAP PO SCH ×2 (09:00→20:16)
[2017-04-06] MEDS: ESTROGENS CONJUGATED 0.625 MG TAB PO SCH (09:32)
[2017-04-06] MEDS: BISACODYL EC 5 MG TABEC PO SCH (09:33)
[2017-04-06] MEDS: PANTOPRAZOLE SOD 40 MG DELAYED RELEASE TAB PO SCH (09:33)
[2017-04-06] MEDS: SPIRONOLACTONE/HCTZ 25 MG/25 MG TAB PO SCH (09:33)
--- NOTE | 2017-04-06 09:49 | HHI.NSPN ---
History Chief Complaint: Back pain Interval History Ms. Owens is a 86 y/o female who recently underwent a L4-5 laminectomy with microdiscectomy on 03/17/17. She presented to the ED with progressive left foot weakness. Follow up MRI L spine showed a recurrent disc herniation and spondylolisthesis. She underwent redo L4-5 laminectomy interbody arthrodesis using PEEK cage and autologous bone graft, L4-L5 instrumental fixation using transpedicular screws and rods, microsurgical dissection on 04/03/17. 2: POD 1, surgical pain controlled, stable left weak dorsiflexion. denies chest pain, difficulty breathing. 04/05: POD 2, back pain improved after taking medication. 04/06: POD 4: Pt complains of incisional back pain and right hip area pain. No radiculopathy in LEs. Pt on [employer] and okay with transitioning to PO. States she cannot take norco as makes her nauseated but tolerated Dilaudid IV okay. Review of Systems General: Negative for: fever, chills, insomnia Respiratory: Negative for: shortness of breath, cough, sputum Cardiovascular: Negative for: chest pain Gastrointestinal: Negative for: nausea, vomitting, diarrhea, constipation Exam Results Vital Signs Date Time Temp Pulse Resp B/P Pulse Ox O2 Delivery O2 Flow Rate FiO2 04/06/17 08:00 96.2 107 20 121/73 96 04/04/17 08:08 Nasal Cannula 2.00 Intake and Output 04/05/17 04/05/17 04/05/17 07:59 15:59 23:59 Intake Total 120 ml 240 ml 480 ml Output Total 15 ml Balance 105 ml 240 ml 480 ml Physical Examination Resp: CTA bilaterally Heart: NSR no murmurs Abd: Soft positive bs Skin: Incision clean and dry. No signs of infection Muscle: Moves LEs with left foot dorsiflexion weakness. Ambulates with a walker. Neuro: Pt awake and alert. Follows commands well. Speech clear and appropriate. Lab, Micro, Other Results Last Impressions Lumbar Spine X-Ray 04/03/17 0000 Signed Impressions: Service Date/Time: Monday, April 03, 2017 16:04 - CONCLUSION: Status post stabilization at the L4-L5 level. Matt Brady MD Lumbar Spine MRI 04/03/17 0000 Signed Impressions: Service Date/Time: Monday, April 03, 2017 10:35 - CONCLUSION: Degenerative changes and postsurgical changes are noted. There is a left central protrusion at L4-5 with mass effect on the L5 nerve roots and abutment of the S1 nerve roots. This is noted anterior to the hemilaminectomy site. Carson Vines MD 04/05/17 04/05/17 04/06/17 14:59 22:59 06:59 Intake Total 240 ml 480 ml 120 ml Balance 240 ml 480 ml 120 ml Intake Oral 240 ml 480 ml 120 ml # Voids 5 6 3 # Bowel Movements 0 0 0 Medical Decision Making Impression and Plan A: 86 y/o FM s/p L4/L5 PLIF. POD #4 P: D/C [employer] and transition to po pain medication continue with PT D/C planning. Christian Stratton Apr 06, 2017 09:49
--- NOTE | 2017-04-06 10:37 | HHI.PR ---
Subjective Subjective Remarks doesn't feel well no bm back pain still doesn't move left foot well wants to get cleaned up no fever no cp no sob Review of Systems Constitutional Constitutional Remarks 12 point ros completed, negative except as noted above Vitals/Results Intake & Output 04/05/17 04/05/17 04/06/17 15:00 23:00 07:00 Intake Total 240 ml 480 ml 120 ml Balance 240 ml 480 ml 120 ml Intake Oral 240 ml 480 ml 120 ml # Voids 5 6 3 # Bowel Movements 0 0 0 Vital Signs Vital Signs Date Time Temp Pulse Resp B/P Pulse Ox O2 Delivery O2 Flow Rate FiO2 04/06/17 08:00 96.2 107 20 121/73 96 04/06/17 00:30 98.6 98 17 108/61 96 04/05/17 20:25 97.6 93 17 117/62 96 04/05/17 16:00 98.2 81 20 102/68 96 04/05/17 12:00 96.9 84 20 109/64 95 CBC/BMP: 04/05/17 0701 04/04/17 2125 Physical Exam General General Appearance: Well Nourished, Comfortable Eyes Eye Exam: Pupils Equal, Pupils Reactive Ears & Nose Ears & Nose Exam: Nasal Mucosa [place] Throat Throat Exam: Oral Mucosa [place] & Moist Neck Neck Exam: Trachea Midline Pulmonary Resp Exam: Breath Sounds Equal, No Distress Cardiology CV Exam: Normal Sinus Rhythm, Good Perfusion Gastrointestinal/Abdomen GI Exam: Soft, Non-Tender, Bowel Sounds Present, Non-Distended Musculoskeletal MS Exam: Normal Tone Integumentary Skin Exam: Warm, Dry Extremeties Extremities Exam: No Edema, Pedal Pulses Palpable Neurologic Neuro Exam: Alert, Awake, Oriented, Speech Clear Neuro Remarks weakness to LLE Psychiatric Psych Exam: Appropriate Responses VTE Prophylaxis VTE Prophylaxis Device: SCDs Assessment/Plan Assessment/Plan Assessment Left sided L5 disc herniation S/P redo L4-5 laminectomy interbody arthrodesis using PEEK cage and autologous bone graft, L4-L5 instrumental fixation using transpedicular screws and rods, microsurgical dissection on 04/03/17. Left foot drop and progressive weakness HTN Management post op care Dr. Smith following PT Pain management neurology also following BP control DVT and GI prophylaxis CM for dc planning, to SNF when cleared by neurosurgery D/W RN D/W Dr. Howell D/W pt This patient was seen by myself in Dr. Howell, this note is written on his behalf Hannah Cao Apr 06, 2017 10:37
[2017-04-06 12:00] VITALS: BP 112/69; PULSE 110; RESP 20; TEMP 96.7; O2SAT 98
[2017-04-06] MEDS: HYDROmorphone HCL 2 MG TAB PO PRN ×2 (13:17→20:17)
[2017-04-06] MEDS: NS + KCL 20 MEQ INJ 1,000 ML IV SCH (14:31)
[2017-04-06 16:00] VITALS: BP 121/81; PULSE 117; RESP 18; TEMP 96.4; O2SAT 99
[2017-04-06] MEDS: METOPROLOL TARTRATE 25 MG TAB PO SCH (17:33)
[2017-04-06] MEDS: amLODIPine BESYLATE 5 MG TAB PO SCH (20:16)
[2017-04-06 20:19] VITALS: BP 115/65; PULSE 98; RESP 18; TEMP 96.7; O2SAT 98
[2017-04-07 00:12] VITALS: BP 130/88; PULSE 106; RESP 17; TEMP 97; O2SAT 96
[2017-04-07] MEDS: NS + KCL 20 MEQ INJ 1,000 ML IV SCH ×2 (00:31→10:31)
[2017-04-07] MEDS: HYDROmorphone HCL 2 MG TAB PO PRN ×4 (06:27→22:05)
[2017-04-07 08:00] VITALS: BP 127/75; PULSE 89; RESP 18; TEMP 96.9; O2SAT 98
[2017-04-07] MEDS: SODIUM CHLORIDE 0.9% FLUSH 5 ML FLUSH IVF SCH (09:00)
[2017-04-07] MEDS: GABAPENTIN 300 MG CAP PO SCH ×2 (09:00→22:05)
[2017-04-07] MEDS ORDERED: TRAM50TA PO (09:13)
[2017-04-07] MEDS: ESTROGENS CONJUGATED 0.625 MG TAB PO SCH (09:22)
[2017-04-07] MEDS: PANTOPRAZOLE SOD 40 MG DELAYED RELEASE TAB PO SCH (09:22)
[2017-04-07] MEDS: BISACODYL EC 5 MG TABEC PO SCH (09:22)
[2017-04-07] MEDS: SPIRONOLACTONE/HCTZ 25 MG/25 MG TAB PO SCH (09:23)
--- NOTE | 2017-04-07 10:02 | HHI.DCPOC ---
Discharge Care Plan Diagnosis: (1) S/P lumbar spinal fusion Goals to Promote Your Health * To prevent worsening of your condition and complications * To maintain your health at the optimal level Directions to Meet Your Goals Take your medications as prescribed Follow your dietary instruction Follow activity as directed Keep your appointments as scheduled Take your immunizations and boosters as scheduled If your symptoms worsen call your PCP, if no PCP go to Urgent Care Center or Emergency Room Smoking is Dangerous to Your Health. Avoid second hand smoke Call the 24-hour hour crisis hotline for domestic abuse at Desi Nunez Apr 07, 2017 10:02
--- NOTE | 2017-04-07 10:03 | HHI.DS ---
Discharge Summary Admission Date Apr 03, 2017 at 12:45 Discharge Date: Apr 07, 2017 Admitting Diagnosis foot drop, herniated disc (1) S/P lumbar spinal fusion ICD Code: Z98.1 (2) Foot drop, left ICD Code: M21.372 (3) Back pain with left-sided sciatica ICD Code: M54.32 CBC/BMP: 04/05/17 0701 04/04/17 2125 Significant Findings Laboratory Tests Test 04/04/17 04/05/17 21:25 07:01 White Blood Count 12.3 TH/MM3 (4.0-11.0) Red Blood Count 3.99 MIL/MM3 3.93 MIL/MM3 (4.00-5.30) (4.00-5.30) Neutrophils (%) (Auto) 73.9 % (16.0-70.0) Monocytes (%) (Auto) 10.3 % (0.0-8.0) Neutrophils # (Auto) 9.1 TH/MM3 (1.8-7.7) Monocytes # (Auto) 1.3 TH/MM3 (0-0.9) Carbon Dioxide Level 34.0 MEQ/L (21.0-32.0) Anion Gap 4 MEQ/L (5-15) Blood Urea Nitrogen 6 MG/DL (7-18) Random Glucose 127 MG/DL (74-106) Imaging Last Impressions Lumbar Spine X-Ray 04/03/17 0000 Signed Impressions: Service Date/Time: Monday, April 03, 2017 16:04 - CONCLUSION: Status post stabilization at the L4-L5 level. Matt Brady MD Lumbar Spine MRI 04/03/17 0000 Signed Impressions: Service Date/Time: Monday, April 03, 2017 10:35 - CONCLUSION: Degenerative changes and postsurgical changes are noted. There is a left central protrusion at L4-5 with mass effect on the L5 nerve roots and abutment of the S1 nerve roots. This is noted anterior to the hemilaminectomy site. Carson Vines MD Hospital Course Ms. Owens is a 86 y/o female who underwent a L4-5 laminectomy with microdiscectomy on 03/17/17. She presented to the ED with progressive left foot weakness. Follow up MRI L spine showed a recurrent disc herniation and spondylolisthesis. She underwent redo L4-5 laminectomy interbody arthrodesis using PEEK cage and autologous bone graft, L4-L5 instrumental fixation using transpedicular screws and rods, microsurgical dissection on 04/03/17. Her postoperative pain was managed with [employer] pump that was subsequently weaned off. Her surgical pain improved and tolerable on oral pain medications. She was discharged to inpatient rehab in stable conditions. Wound care and activity restrictions were discussed. Pt Condition on Discharge: Stable Discharge Disposition: Rehab Inpatient Discharge Instructions DIET: Follow Instructions for: Heart Healthy Diet ACTIVITIES You can perform: Weight Bearing As Brandin ADDITIONAL Activity Instructio: Avoid strenuous activities, heavy lifting, overhead activities, repetitive bending, twisting, pushing, pulling or any activities which might result in stress over the spine. Avoid situtation that will put at risk for falls. Use assistive device as needed for walking. Wear TLSO brace when out of bed. Continued Medications: Amlodipine (Norvasc) 5 Mg Tab 5 MG PO DAILY Blood Pressure Management #30 Ref [address] (Aspirin 81) 81 Mg Tabdr 81 MG PO DAILY Ref 0 TAB Yylglncxlr-Tbjvvsgvzgotp-Xwvfqxjc (Fioricet) 50-300-40 Mg Cap 1 CAP PO Q4H PRN HEADACHE Ref [address] (Nexium) 40 Mg Capdr 40 MG PO DAILY #30 Ref 0 CAP Estrogens, Conjugated (Premarin) 0.625 Mg Tab 0.625 MG PO DAILY Estrogen Supplements #30 Ref 0 TAB Gabapentin (Gabapentin) 300 Mg Cap 300 MG PO BID Pain #60 Ref 1 CAP Metoprolol Tartrate (Metoprolol Tartrate) 25 Mg Tab 12.5 MG PO Q12HR #60 TAB Nitroglycerin SL (Nitrostat SL) 0.3 Mg Subl 0.3 MG SL Q5M PRN CHEST PAIN #30 TAB Spironolactone-Hydrochlorothiazide (Aldactazide) 25-25 Mg Tab 1 TAB PO DAILY #30 Ref 0 TAB Tramadol (Tramadol) 50 Mg Tab 50 MG PO Q6H PRN PAIN #90 Ref 0 TAB (This prescription has been renewed) Desi Nunez Apr 07, 2017 10:03
[2017-04-07 12:00] VITALS: BP 115/86; PULSE 98; RESP 18; TEMP 96.5; O2SAT 94
[2017-04-07 16:00] VITALS: BP 112/66; PULSE 91; RESP 18; TEMP 96; O2SAT 97
--- NOTE | 2017-04-07 16:20 | HHI.NSPN ---
Note Status Status: Progress Note Interval History Interval History Ms. Owens is a 86 y/o female who recently underwent a L4-5 laminectomy with microdiscectomy on 03/17/17. She presented to the ED with progressive left foot weakness. Follow up MRI L spine showed a recurrent disc herniation and spondylolisthesis. She underwent redo L4-5 laminectomy interbody arthrodesis using PEEK cage and autologous bone graft, L4-L5 instrumental fixation using transpedicular screws and rods, microsurgical dissection on 04/03/17. 04/04: POD 1, surgical pain controlled, stable left weak dorsiflexion. denies chest pain, difficulty breathing. 04/07: POD 4, sitting up in chair, reports slight improvement of left foot drop. surgical pain controlled. Labs, Micro, & Vital Signs Results Date Time Temp Pulse Resp B/P Pulse Ox O2 Delivery O2 Flow Rate FiO2 04/07/17 12:00 96.5 98 18 115/86 94 04/07/17 08:00 96.9 89 18 127/75 98 04/07/17 00:12 97.0 106 17 130/88 96 04/06/17 20:19 96.7 98 18 115/65 98 04/07/17 07:00 Intake Total 960 ml Balance 960 ml Constitutional Vital Signs Date Time Temp Pulse Resp B/P Pulse Ox O2 Delivery O2 Flow Rate FiO2 04/07/17 12:00 96.5 98 18 115/86 94 04/07/17 08:00 96.9 89 18 127/75 98 04/07/17 00:12 97.0 106 17 130/88 96 04/06/17 20:19 96.7 98 18 115/65 98 04/07/17 07:00 Intake Total 960 ml Balance 960 ml Review of Systems/Exam Exam Ms. Owens is alert and oriented to time, place and person. Speech is appropriate Cranial nerve: pupils equal, round and reactive to light. Facial motor are normal and symmetrical. Neck is soft and supple Muscle strength is normal in all muscle groups of both upper and lower extremities, with 4- left dorsiflexion Medications Current Medications Current Medications Medications (Trade) Dose Ordered Sig/Raysa Route PRN Reason Start Time Stop Time Status Last Admin Dose Admin Ondansetron HCl (Zofran Inj) 4 mg Q6H PRN IVP NAUSEA OR VOMITING 04/03/17 16:00 Magnesium Hydroxide (Milk Of Magnesia Liq) 30 ml Q12H PRN PO MILD - MODERATE CONSTIPATION 04/03/17 16:00 04/06/17 09:32 Sennosides (Senokot) 17.2 mg Q12H PRN PO MODERATE - SEVERE CONSTIPATION 04/03/17 16:00 Bisacodyl (Dulcolax Supp) 10 mg DAILY PRN RECTAL SEVERE CONSITIPATION 04/03/17 16:00 Lactulose (Lactulose Liq) 30 ml DAILY PRN PO SEVERE CONSITIPATION 04/03/17 16:00 Estrogens Conjugated (Premarin) 0.625 mg DAILY PO 04/04/17 09:00 04/07/17 09:22 Gabapentin (Neurontin) 300 mg BID PO 04/03/17 21:00 04/06/17 20:16 Nitroglycerin (Nitrostat Sl) 0.3 mg Q5M PRN SL CHEST PAIN 04/03/17 16:00 HCTZ/ Spironolactone (Aldactazide 25-25 Mg) 1 tab DAILY PO 04/04/17 09:00 04/07/17 09:23 Acetaminophen/ Butalbital/ Caffeine (Fioricet 325-50-40) 1 tab Q4H PRN PO HEADACHE 04/03/17 17:15 Miscellaneous 1 ea 1 ea UNSCH PRN OTHER SEE LABEL COMMENTS 04/03/17 16:30 Potassium Chloride/Sodium Chloride (NS + KCl 20 Meq Inj) 1,000 ml @ 100 mls/hr Q10H IV 04/03/17 16:31 04/05/17 20:20 IV Flush (NS Flush) 2 ml UNSCH PRN IVF FLUSH AFTER USING IV ACCESS 04/03/17 16:45 IV Flush (NS Flush) 2 ml BID IVF 04/03/17 21:00 04/07/17 09:00 Morphine Sulfate (Morphine Inj) 2 mg Q2H PRN IV PUSH PAIN SCALE 1 TO 6 04/03/17 16:45 Morphine Sulfate (Morphine Inj) 4 mg Q2H PRN IV PUSH PAIN SCALE 7 TO 10 04/03/17 16:45 Acetaminophen (Tylenol) 650 mg Q4H PRN PO TEMPERATURE > 101.5 F 04/03/17 16:45 Naloxone HCl (Narcan Inj) 0.4 mg UNSCH PRN IV RESPIRATORY RATE LESS THAN 10 04/03/17 16:45 Diphenhydramine HCl (Benadryl Inj) 25 mg Q6H PRN IV ITCHING 04/03/17 16:45 Bisacodyl (Dulcolax Ec) 10 mg DAILY PO 04/04/17 11:00 04/07/17 09:22 Amlodipine Besylate (Norvasc) 5 mg HS PO 04/04/17 21:00 04/06/17 20:16 Metoprolol Tartrate (Lopressor) 12.5 mg DAILY@1800 PO 04/05/17 18:00 04/05/17 17:55 Pantoprazole Sodium (Protonix) 40 mg DAILY PO 04/06/17 09:00 04/07/17 09:22 Hydromorphone HCl (Dilaudid) 2 mg Q4H PRN PO PAIN SCALE 6 TO 10 04/06/17 09:45 04/07/17 10:41 Medical Decision Making MDM Remarks 86 y/o female s/p L4-5 redo laminectomy with interbody arthrodesis 04/03/17, POD 4 , doing well, neuro stable, surgical pain controlled stable left foot drop Plan Plan Remarks cont supportive care cont PT, clear to start mobilizing OOB with TLSO brace, discharge planning to inpatient rehab, dc when bed available Desi Nunez Apr 07, 2017 16:20
[2017-04-07] MEDS: METOPROLOL TARTRATE 25 MG TAB PO SCH (17:35)
[2017-04-07 20:00] VITALS: BP 134/69; PULSE 101; RESP 20; TEMP 96.5; O2SAT 99
--- NOTE | 2017-04-07 20:20 | HHI.PR ---
Subjective Interval History Alert, oriented, pain well-controlled, still has a left foot drop Review of Systems Constitutional Constitutional Remarks 10 systems reviewed and negative except for the above Vitals/Results Intake & Output 04/06/17 04/06/17 04/07/17 15:00 23:00 07:00 Intake Total 480 ml 480 ml Balance 480 ml 480 ml Intake Oral 480 ml 480 ml # Voids 4 4 3 # Bowel Movements 2 2 Vital Signs Vital Signs Date Time Temp Pulse Resp B/P Pulse Ox O2 Delivery O2 Flow Rate FiO2 04/07/17 16:00 96.0 91 18 112/66 97 04/07/17 12:00 96.5 98 18 115/86 94 04/07/17 08:00 96.9 89 18 127/75 98 04/07/17 00:12 97.0 106 17 130/88 96 CBC/BMP: 04/05/17 0701 04/04/17 2125 Physical Exam General General Appearance: Well Nourished, Comfortable Eyes Eye Exam: Pupils Equal, Pupils Reactive Ears & Nose Ears & Nose Exam: Nasal Mucosa [place] Throat Throat Exam: Oral Mucosa [place] & Moist Neck Neck Exam: Trachea Midline Pulmonary Resp Exam: Breath Sounds Equal, No Distress Cardiology CV Exam: Normal Sinus Rhythm, Good Perfusion Gastrointestinal/Abdomen GI Exam: Soft, Non-Tender, Bowel Sounds Present, Non-Distended Musculoskeletal MS Exam: Normal Tone MS Remarks Left foot drop Integumentary Skin Exam: Warm, Dry Extremeties Extremities Exam: No Edema, Pedal Pulses Palpable Neurologic Neuro Exam: Alert, Awake, Oriented, Speech Clear Psychiatric Psych Exam: Appropriate Responses VTE Prophylaxis VTE Prophylaxis Device: SCDs Assessment/Plan Problem List: (1) S/P lumbar spinal fusion (2) Foot drop, left (3) Back pain with left-sided sciatica Assessment/Plan Assessment Left sided L5 disc herniation S/P redo L4-5 laminectomy interbody arthrodesis using PEEK cage and autologous bone graft, L4-L5 instrumental fixation using transpedicular screws and rods, microsurgical dissection on 04/03/17. Left foot drop and progressive weakness HTN Management Pain control DVT prophylaxis Discharge to rehabilitation once arrange Discussed with patient Discussed with nurse Discharge Minutes: 40 Aime Howell MD Apr 07, 2017 20:20
[2017-04-07] MEDS: amLODIPine BESYLATE 5 MG TAB PO SCH (22:05)
[2017-04-08] VITALS: BP 112/63; PULSE 89; RESP 18; TEMP 96.9; O2SAT 96
[2017-04-08 04:00] VITALS: BP 136/70; PULSE 82; RESP 20; TEMP 97.9; O2SAT 98
[2017-04-08] MEDS: NS + KCL 20 MEQ INJ 1,000 ML IV SCH (06:31)
[2017-04-08 08:00] VITALS: BP 111/77; PULSE 79; RESP 19; TEMP 96.5; O2SAT 97
[2017-04-08] MEDS: SODIUM CHLORIDE 0.9% FLUSH 5 ML FLUSH IVF SCH (08:37)
[2017-04-08] MEDS: ESTROGENS CONJUGATED 0.625 MG TAB PO SCH (08:38)
[2017-04-08] MEDS: PANTOPRAZOLE SOD 40 MG DELAYED RELEASE TAB PO SCH (08:38)
[2017-04-08] MEDS: GABAPENTIN 300 MG CAP PO SCH (08:38)
[2017-04-08] MEDS: SPIRONOLACTONE/HCTZ 25 MG/25 MG TAB PO SCH (08:38)
[2017-04-08] MEDS: BISACODYL EC 5 MG TABEC PO SCH (08:38)
--- NOTE | 2017-04-08 11:31 | HHI.PR ---
Subjective Interval History Alert, oriented, waiting for a brace for her left foot before getting discharged Review of Systems Constitutional Constitutional Remarks 10 systems reviewed and negative except for the above Vitals/Results Intake & Output 04/07/17 04/07/17 04/08/17 15:00 23:00 07:00 Intake Total 1380 ml 240 ml Balance 1380 ml 240 ml Intake Oral 1380 ml 240 ml # Voids 7 3 # Bowel Movements 0 0 Vital Signs Vital Signs Date Time Temp Pulse Resp B/P Pulse Ox O2 Delivery O2 Flow Rate FiO2 04/08/17 08:00 96.5 79 19 111/77 97 04/08/17 04:00 97.9 82 20 136/70 98 04/08/17 00:00 96.9 89 18 112/63 96 04/07/17 20:00 96.5 101 20 134/69 99 04/07/17 16:00 96.0 91 18 112/66 97 04/07/17 12:00 96.5 98 18 115/86 94 CBC/BMP: 04/05/17 0701 04/04/175 Physical Exam General General Appearance: Well Nourished, Anxious Eyes Eye Exam: Pupils Equal, Pupils Reactive Ears & Nose Ears & Nose Exam: Nasal Mucosa [place] Throat Throat Exam: Oral Mucosa [place] & Moist Neck Neck Exam: Trachea Midline Pulmonary Resp Exam: Breath Sounds Equal, No Distress Cardiology CV Exam: Normal Sinus Rhythm, Good Perfusion Gastrointestinal/Abdomen GI Exam: Soft, Non-Tender, Bowel Sounds Present, Non-Distended Musculoskeletal MS Exam: Normal Tone MS Remarks Left foot drop slowly improving, she now can dorsiflex her left great toe Integumentary Skin Exam: Warm, Dry Extremeties Extremities Exam: No Edema, Pedal Pulses Palpable Neurologic Neuro Exam: Alert, Awake, Oriented, Speech Clear Psychiatric Psych Exam: Appropriate Responses VTE Prophylaxis VTE Prophylaxis Device: SCDs Assessment/Plan Problem List: (1) S/P lumbar spinal fusion (2) Foot drop, left (3) Back pain with left-sided sciatica Assessment/Plan Assessment Left sided L5 disc herniation S/P redo L4-5 laminectomy interbody arthrodesis using PEEK cage and autologous bone graft, L4-L5 instrumental fixation using transpedicular screws and rods, microsurgical dissection on 04/03/17. Left foot drop , improving HTN Anxiety Management Pain control DVT prophylaxis Discharge to rehabilitation today Discussed with patient Discussed with nurse Discharge Minutes: 40 Aime Howell MD Apr 08, 2017 11:31
[2017-04-08 12:08] VITALS: BP 135/78; PULSE 91; RESP 18; TEMP 96.1; O2SAT 97
[2017-04-08] MEDS ORDERED: DILA2TAB2 PO (15:02)
== END 2017-04-08 16:22 | DRG 460 ==
LOC: NEPE 08:50 → NEDA 12:45 → N03B 19:13 → N06B 04-04 17:22
PROVIDERS: ADMIT Specialist; ATTEND Specialist
PROC: 0ST20ZZ Resection of Lumbar Vertebral Disc, Open Approach (ICD-10-PCS; 2017-04-03)
PROC: 0SG00A1 (ICD-10-PCS; principal; 2017-04-03 13:10)
DX: M51.16 Intervertebral disc disorders with radiculopathy, lumbar region (principal); D64.9 Anemia, unspecified; I10 Essential (primary) hypertension; M43.16 Spondylolisthesis, lumbar region; K21.9 Gastro-esophageal reflux disease without esophagitis; M21.372 Foot drop, left foot; Z98.890 Other specified postprocedural states; Z85.828 Personal history of other malignant neoplasm of skin; H91.93 Unspecified hearing loss, bilateral; K59.00 Constipation, unspecified
CPT/HCPCS: 72100; 72158; 76000; 80048; 80053; 85025; 85027; 86850; 86900; 86901; 86920; 87641; 94150; 96374; A9579; C1713; C9113; J0131; J0690; J1030; J1100; J1170; J1580; J2060; J2270; J2370; J2405; J3010; J3370; J3480; J7040; J7050; J7120; L0200; L0484

== ENCOUNTER 2017-06-16 18:13 | Emergency (ER) | payer MEDICARE, BC ==
[~2017-06-16] VITALS: Ht 162.6 cm; Wt 72.0 kg
[~2017-06-16 18:13] MED LIST changes: -BACL20TA PO; +BUTA1CAP PO; -COMMODE 3-IN-11 MIS; -DICL25 PO; +DICL75TA PO; +DILA2TAB2 PO
[2017-06-16 18:20] VITALS: BP 127/60; PULSE 88; RESP 16; TEMP 97.8; O2SAT 96
[2017-06-16] MEDS ORDERED: BACL20TA PO ×2 (18:32)
[2017-06-16] MEDS ORDERED: KETOROLAC TROMETHAMINE 60 MG/2 ML (IM) VIAL IM ONE (18:45)
[2017-06-16] MEDS ORDERED: MEDR4PAK PO (18:48)
[2017-06-16] MEDS ORDERED: DILA2TAB2 PO (18:48)
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
== END 2017-06-16 19:06 | disposition home or self-care (01) ==
LOC: PHED 18:13
DX: M54.31 Sciatica, right side (principal); I10 Essential (primary) hypertension; H91.93 Unspecified hearing loss, bilateral; Z87.39 Personal history of other diseases of the musculoskeletal system and connective tissue; Z85.828 Personal history of other malignant neoplasm of skin; Z87.19 Personal history of other diseases of the digestive system
CPT/HCPCS: 96372; 99284; J1885

== ENCOUNTER 2017-06-19 01:42 | Emergency (ER) | payer MEDICARE, BC ==
[~2017-06-19 01:42] MED LIST changes: +BACL20TA PO; +MEDR4PAK PO; -METO25TA3 PO; -TRAM50TA PO
[2017-06-19 01:44] VITALS: BP 157/74; PULSE 78; RESP 16; TEMP 97.8; O2SAT 97
[2017-06-19] MEDS ORDERED: KETOROLAC TROMETHAMINE 60 MG/2 ML (IM) VIAL IM ONE (02:30)
[2017-06-19] MEDS ORDERED: HYDROmorphone HCL PF 1 MG/ML VIAL SQ ONE (02:30)
--- NOTE | 2017-06-19 02:30 | PD ---
HPI Chief Complaint: Back/ Neck Pain or Injury Time Seen by Provider: 02:28 Travel History International Travel<30 days: No Contact w/Intl Traveler<30days: No Traveled to known affect area: No History of Present Illness HPI Patient is 86-year-old female with a history of lumbar surgery presents emergency department for evaluation of paresthesias down her right leg. States that in the past that she did have some sciatica down the left leg but now after was operated on she didn't have that for long time and now is having abdominal right leg. Patient states that she tried to call Dr. Smith several times. She states that he has not called her back. She's been evaluated once in the emergency department for this in the past and was prescribed Dilaudid pills. She states that any other medication makes her deathly ill and nauseous. She states that she's run out of this medication at this time. She denies any saddle anesthesia denies difficulty urinating. Last time she was seen here she did not receive any imaging. She states that she has been able to ambulate. Symptoms are moderate for the past week, constant. PFSH Past Medical History Hx Anticoagulant Therapy: No Cancer: Yes (SKIN CANCER) Cardiovascular Problems: No Chemotherapy: No Cerebrovascular Accident: No Diabetes: No Diminished Hearing: Yes (issa hearing aids) Endocrine: No Gastrointestinal Disorders: Yes (GERD) GERD: Yes Genitourinary: No Hepatitis: No Hiatal Hernia: No Hypertension: Yes Immune Disorder: No Musculoskeletal: Yes (SCIATICA, NECK/BACK ISSUES) Neurologic: No Psychiatric: No Reproductive: No Respiratory: No Thyroid Disease: No ?: Not Past Surgical History Abdominal Surgery: Yes (GALLBLADDER SURGERY) AICD: No Cholecystectomy: Yes Genitourinary Surgery: Yes (BLADDER) Gynecologic Surgery: Yes (HYSTERECTOMY) Hysterectomy: Yes Joint Replacement: No Pacemaker: No Other Surgery: Yes (spinal decompression/ lamenectomy l4 03/17/17) Social History Alcohol Use: Yes (RARE) Tobacco Use: No Substance Use: No Allergies-Medications (Allergen,Severity, Reaction): Coded Allergies: Sulfa (Sulfonamide Antibiotics) (Unverified Allergy, Unknown, Rash, ) codeine (Unverified Allergy, Unknown, Nausea/Vomiting, 06/16/17) penicillin G (Unverified Allergy, Unknown, Rash, 06/16/17) Reported Meds & Prescriptions Reported Meds & Active Scripts Active Dilaudid (Hydromorphone HCl) 2 Mg Tab 2 Mg PO Q12HR PRN Medrol Dosepak (Methylprednisolone) 4 Mg Dspk 4 Mg PO DIRECTED Per Pharmacist direction Diclofenac Sodium DR (Diclofenac Sodium) 75 Mg Tabdr 75 Mg PO BID Dilaudid (Hydromorphone HCl) 2 Mg Tab 2 Mg PO Q4H PRN Gabapentin 300 Mg Cap 300 Mg PO BID Nitrostat SL (Nitroglycerin) 0.3 Mg Subl 0.3 Mg SL Q5M PRN Nexium (Esomeprazole DR) 40 Mg Capdr 40 Mg PO DAILY Reported Baclofen 20 Mg Tab 20 Mg PO TID Fioricet (Orrrjulrej-Ilswlifvppbdz-Xmrxtvxk) 50-300-40 Mg Cap 1 Cap PO Q4H PRN Aspirin 81 (Aspirin) 81 Mg Tabdr 81 Mg PO DAILY Norvasc (Amlodipine Besylate) 5 Mg Tab 5 Mg PO DAILY Aldactazide (HCTZ/Spironolactone) 25-25 Mg Tab 1 Tab PO DAILY Premarin (Estrogens Conjugated) 0.625 Mg Tab 0.625 Mg PO DAILY Review of Systems Except as stated in HPI: all other systems reviewed are Neg Physical Exam Narrative GENERAL: Well-developed well-nourished no obvious distress area she appears quite comfortable. SKIN: Focused skin assessment warm/dry. HEAD: Atraumatic. Normocephalic. EYES: Pupils equal and round. No scleral icterus. No injection or drainage. ENT: No nasal bleeding or discharge. Mucous membranes pink and moist. NECK: Trachea midline. No JVD. CARDIOVASCULAR: Regular rate and rhythm. No murmur appreciated. RESPIRATORY: No accessory muscle use. Clear to auscultation. Breath sounds equal bilaterally. GASTROINTESTINAL: Abdomen soft, non-tender, nondistended. Hepatic and splenic margins not palpable. MUSCULOSKELETAL: No obvious deformities. No clubbing. No cyanosis. No edema. No midline CT or L-spine tenderness, 5 out of 5 strength in all 4 extremity's, sensation intact. NEUROLOGICAL: Awake and alert. No obvious cranial nerve deficits. Motor grossly within normal limits. Normal speech. PSYCHIATRIC: Appropriate mood and affect; insight and judgment normal. Data Data Last Documented VS Vital Signs Date Time Temp Pulse Resp B/P (MAP) Pulse Ox O2 Delivery O2 Flow Rate FiO2 06/19/17 04:16 06/19/17 01:44 97.8 78 16 97 Room Air Orders Orders Ketorolac Inj (Toradol Inj) (06/19/17 02:30) Hydromorphone Pf Inj (Dilaudid Pf Inj) (06/19/17 02:30) Ct Lumb Spine W/O Contrast (06/19/17 ) MDM Medical Decision Making Medical Screen Exam Complete: Yes Emergency Medical Condition: Yes Differential Diagnosis Acute on chronic low back pain, cauda equina syndrome is been excluded clinically, cult fracture possible per Narrative Course Patient roomed in emergency primary, CAT scan shows multiple degenerative disease but does not show any acute fracture nor encroachment on the spinal cord. This consistent with her findings and completely neurologically intact. Patient given pain medicine, appears comfortable and will be discharged to Dr. Smith's office. Discussed with her and she is agreeable to the course of action. Diagnosis Primary Impression: Back pain with left-sided sciatica Med/Other Pt SpecificInfo: Prescription(s) given Scripts Hydromorphone (Dilaudid) 2 Mg Tab 2 MG PO Q12HR Y for Pain Management, #5 TAB 0 Refills Prov: Bao Meeks MD 06/19/17 Disposition: 01 DISCHARGE HOME Condition: Stable Bao Meeks MD Jun 19, 2017 02:30
--- NOTE | 2017-06-19 03:30 | RADRPT ---
EXAM DATE/TIME: 06/19/2017 02:55 [facility] COMPARISON: No previous studies available for comparison. INDICATIONS : Pain radiating down right leg, back surgery 2 months ago RADIATION DOSE: 35.86 CTDIvol (mGy) MEDICAL HISTORY : None SURGICAL HISTORY : Cholecystectomy. Hysterectomy.Laminectomy ENCOUNTER: Initial ACUITY: 4 - 6 days PAIN SCALE: 5/10 LOCATION: Left leg TECHNIQUE: Volumetric scanning of the lumbar spine was performed. Multiplanar reconstructions in the sagittal, coronal and oblique axial planes were performed. Using automated exposure control and adjustment of the mA and/or kV according to patient size, radiation dose was kept as low as reasonably achievable t o obtain optimal diagnostic quality images. DICOM format image data is available electronically for review and comparison. FINDINGS: Sagittal and coronal reconstructions demonstrate transpedicular posterior fixation at L4-5 the interv ertebral disc prostheses. Minimal grade 1 anterolisthesis of L3 on 4 and L4 on 5. Multilevel degenera tive disc disease with diffuse disc bulges encroaching on the intervertebral space. However, spinal c anal is adequate throughout with no central nerve root compromise. Vacuum disc phenomenon at L1-2 wit h bilateral vacuum joint phenomenon the SI joints. 2.2 cm low-density nodule in the left adrenal glan d. Degenerative images are as follows: T12-L1: Spinal canal and neural foramina are patent L1-L2: Mild, diffuse disc bulge with vacuum disc phenomenon. Spinal canal and neural foramina are patent L2-L3: Mild, diffuse disc bulge. Spinal canal and neural foramina are patent. L3-L4: Mild, diffuse disc bulge with a posterior component encroaching on the intervertebral space. Spinal c anal and neural foramina remain adequate.. L4-L5: Posteriorly fixated level with laminectomy. Spinal canal and neural foramina are adequate although an atomic detail is limited by beam hardening artifact from the regional hardware. L5-S1: Facet hypertrophy with mild, diffuse disc bulge. Canal and neural foramina remain patent. CONCLUSION: 1. 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 2. Multiple degenerative disc disease with multilevel diffuse disc bulges at multiple levels. 3. Despite degenerative changes, the spinal canal and neural foramina. The adequate throughout withou t nerve root compromise to explain current clinical symptoms. Decompressive laminectomy at L4-5. 4. Vacuum joint phenomenon in the SI joints bilaterally. 5. Probable 2.2 cm adenoma in the left adrenal gland. Kenton Rene MD on June 19, 2017 at 3:19 Board Certified Radiologist. This report was verified electronically.
[2017-06-19] MEDS ORDERED: DILA2TAB2 PO (04:31)
== END 2017-06-19 05:02 | disposition home or self-care (01) ==
LOC: NEPE 01:42
DX: M54.32 Sciatica, left side (principal); I10 Essential (primary) hypertension; Z79.899 Other long term (current) drug therapy; Z79.891 Long term (current) use of opiate analgesic; M54.41 Lumbago with sciatica, right side; K21.9 Gastro-esophageal reflux disease without esophagitis; Z85.828 Personal history of other malignant neoplasm of skin; Z79.82 Long term (current) use of aspirin; Z88.5 Allergy status to narcotic agent; Z88.2 Allergy status to sulfonamides; Z88.0 Allergy status to penicillin
CPT/HCPCS: 72131; 96372; 99284; J1170; J1885

== ENCOUNTER 2017-06-19 11:11 | Emergency (ER) | payer MEDICARE, BC ==
[~2017-06-19] VITALS: Ht 160 cm; Wt 70.0 kg
[2017-06-19 11:13] VITALS: BP 133/89; PULSE 62; RESP 16; TEMP 98.2; O2SAT 98
[2017-06-19] MEDS ORDERED: ONDANSETRON HCL 4 MG/2 ML VIAL IM ONE (13:00)
[2017-06-19] MEDS ORDERED: MORPHINE SULFATE 4 MG/ML INJ IM ONE (13:00)
[2017-06-19] MEDS ORDERED: methylPREDNISolone SOD SUCC 125 MG/2 ML VIAL IM ONE (13:00)
--- NOTE | 2017-06-19 13:17 | PD ---
HPI Chief Complaint: Back/ Neck Pain or Injury Time Seen by Provider: 12:18 Travel History International Travel<30 days: No Contact w/Intl Traveler<30days: No Traveled to known affect area: No History of Present Illness HPI The patient was seen and examined in the presence of the nurse. This patient complains of back pain. She has long-standing history of chronic back pain. She had surgery earlier this summer for it. She has been here 3 times in 3 days for low back pain rating down the back of her right leg to the level of the knee. No urinary retention or incontinence or new neurologic complaint beyond the pain. She says that she keeps coming back because she cannot reach Dr. Smith normal make an appointment to see him. No fever or acute injury. Symptoms severity is moderate. No alleviating factors. She does use a walker at home PFSH Past Medical History Hx Anticoagulant Therapy: No Cancer: Yes (SKIN CANCER) Cardiovascular Problems: No Chemotherapy: No Cerebrovascular Accident: No Diabetes: No Diminished Hearing: Yes (sisa hearing aids) Endocrine: No Gastrointestinal Disorders: Yes (GERD) GERD: Yes Genitourinary: No Hepatitis: No Hiatal Hernia: No Hypertension: Yes Immune Disorder: No Musculoskeletal: Yes (SCIATICA, NECK/BACK ISSUES) Neurologic: No Psychiatric: No Reproductive: No Respiratory: No Thyroid Disease: No Past Surgical History Abdominal Surgery: Yes (GALLBLADDER SURGERY) AICD: No Cholecystectomy: Yes Genitourinary Surgery: Yes (BLADDER) Gynecologic Surgery: Yes (HYSTERECTOMY) Hysterectomy: Yes Joint Replacement: No Pacemaker: No Other Surgery: Yes (spinal decompression/ lamenectomy l4 03/17/17) Social History Alcohol Use: Yes (RARE) Tobacco Use: No Substance Use: No Allergies-Medications (Allergen,Severity, Reaction): Coded Allergies: Sulfa (Sulfonamide Antibiotics) (Unverified Allergy, Unknown, Rash, ) codeine (Unverified Allergy, Unknown, Nausea/Vomiting, 06/16/17) penicillin G (Unverified Allergy, Unknown, Rash, 06/16/17) Reported Meds & Prescriptions Reported Meds & Active Scripts Active Dilaudid (Hydromorphone HCl) 2 Mg Tab 2 Mg PO Q12HR PRN Medrol Dosepak (Methylprednisolone) 4 Mg Dspk 4 Mg PO DIRECTED Per Pharmacist direction Diclofenac Sodium DR (Diclofenac Sodium) 75 Mg Tabdr 75 Mg PO BID Dilaudid (Hydromorphone HCl) 2 Mg Tab 2 Mg PO Q4H PRN Gabapentin 300 Mg Cap 300 Mg PO BID Nitrostat SL (Nitroglycerin) 0.3 Mg Subl 0.3 Mg SL Q5M PRN Nexium (Esomeprazole DR) 40 Mg Capdr 40 Mg PO DAILY Reported Baclofen 20 Mg Tab 20 Mg PO TID Fioricet (Kyfdrrprmt-Rtuwwcscuzsvb-Mjblaodn) 50-300-40 Mg Cap 1 Cap PO Q4H PRN Aspirin 81 (Aspirin) 81 Mg Tabdr 81 Mg PO DAILY Norvasc (Amlodipine Besylate) 5 Mg Tab 5 Mg PO DAILY Aldactazide (HCTZ/Spironolactone) 25-25 Mg Tab 1 Tab PO DAILY Premarin (Estrogens Conjugated) 0.625 Mg Tab 0.625 Mg PO DAILY Review of Systems General / Constitutional: No: Fever Eyes: No: Visual changes HENT: No: Headaches Cardiovascular: No: Chest Pain or Discomfort Respiratory: No: Shortness of Breath Gastrointestinal: No: Abdominal Pain Genitourinary: No: Dysuria Musculoskeletal: Positive: Pain Skin: No Rash Neurologic: No: Weakness Psychiatric: No: Depression Endocrine: No: Polydipsia Hematologic/Lymphatic: No: Easy Bruising Physical Exam Narrative GENERAL: Well-nourished, well-developed patient with low back pain . SKIN: Focused skin assessment reveals no rash and nodules. Skin is Warm and dry. HEAD: Atraumatic. Normocephalic. EYES: Pupils equal and round. No scleral icterus. No injection or drainage. ENT: No nasal bleeding or discharge. Mucous membranes pink and moist. NECK: Trachea midline. No JVD. CARDIOVASCULAR: Regular rate and rhythm. No murmur appreciated. RESPIRATORY: No accessory muscle use. Clear to auscultation. Breath sounds equal bilaterally. GASTROINTESTINAL: Abdomen soft, non-tender, nondistended. Hepatic and splenic margins not palpable. MUSCULOSKELETAL: No obvious deformities. No clubbing. No cyanosis. No edema. No midline tenderness of the back. NEUROLOGICAL: Awake and alert. No obvious cranial nerve deficits. Motor grossly within normal limits. Normal speech. PSYCHIATRIC: Appropriate mood and affect; insight and judgment normal. Data Data Last Documented VS Vital Signs Date Time Temp Pulse Resp B/P (MAP) Pulse Ox O2 Delivery O2 Flow Rate FiO2 06/19/17 11:13 98.2 62 16 133/89 (104) 98 Orders Orders Ondansetron Inj (Zofran Inj) (06/19/17 13:00) Morphine Inj (Morphine Inj) (06/19/17 13:00) Methylprednisolone So Succ Inj (Solumedr (06/19/17 13:00) MDM Medical Decision Making Medical Screen Exam Complete: Yes Emergency Medical Condition: Yes Medical Record Reviewed: Yes Differential Diagnosis Sciatica, chronic back pain, DJD Narrative Course I have reviewed the patient's electronic medical record. Reviewed her last 2 visits here for the same thing over the last couple of days. She had a lumbar spine CT just about 9 hours ago. Patient is at neurologic baseline. Her presentation is consistent with sciatica. I gave her injection of morphine and Zofran and Solu-Medrol was done at her request Dr. Smith is not on-call now and I cannot reach him on Wednesday No emergent indication to do this regardless They're to call the office on Wednesday to try to make an appointment Diagnosis Primary Impression: Back pain at L4-L5 level Additional Impression: Sciatica of right side Additional Instructions: The patient was advised to follow up with their physician and return if they worsen. Med/Other Pt SpecificInfo: Other Disposition: 01 DISCHARGE HOME Condition: Stable Hussein Barrientos MD Jun 19, 2017 13:17
== END 2017-06-19 13:38 | disposition home or self-care (01) ==
LOC: NEPD 11:11
DX: M54.41 Lumbago with sciatica, right side (principal); K21.9 Gastro-esophageal reflux disease without esophagitis; I10 Essential (primary) hypertension; Z85.828 Personal history of other malignant neoplasm of skin; Z79.82 Long term (current) use of aspirin; Z79.899 Other long term (current) drug therapy; Z88.5 Allergy status to narcotic agent; Z88.2 Allergy status to sulfonamides; Z88.0 Allergy status to penicillin
CPT/HCPCS: 96372; 99285; J2270; J2405; J2930; 72131; J1170; J1885

== ENCOUNTER 2017-06-21 12:30 | Observation (INO) | payer MEDICARE, BC ==
[~2017-06-21] VITALS: Ht 165.1 cm; Wt 72.0 kg
[~2017-06-21 12:30] MED LIST changes: +METO25TA3 PO; +TRAM50TA PO
[2017-06-21 12:41] VITALS: BP 177/76; PULSE 82; RESP 19; TEMP 98.4; O2SAT 97
[2017-06-21 12:45] VITALS: BP 176/77; PULSE 82; RESP 19; TEMP 98.4; O2SAT 97
--- NOTE | 2017-06-21 12:48 | PD ---
HPI . acute on chronic back pain Chief Complaint: Back/ Neck Pain or Injury Time Seen by Provider: 12:48 Travel History International Travel<30 days: No Contact w/Intl Traveler<30days: No Traveled to known affect area: No History of Present Illness HPI 86-year-old female with history of chronic back pain with recent surgery in April of this year here with complaints of worsening back pain. This is her fourth visit in the past 3 days. Patient was here on June 16, June 19 twice and now today. She had a CT scan of her lumbar area that demonstrated posterior fixation at L4 and L5 with minimal grade 1 anterolisthesis of L3 on 4 and L4 on 5. There was multiple degenerative disc disease with multilevel disc bulges at multiple levels. Despite degenerative changes, the spinal cord and neural foramina were adequate throughout without nerve root compression. Patient is here today complaining of back pain radiating down her right leg. She was brought in by [facility] as she took Dilaudid and seemed to be somewhat confused. Her daughter called 911 for assistance. She is now complaining of severe pain in her back radiating into the right leg. She denies any bowel or bladder dysfunction. She has no saddle anesthesia. She denies any fever or chills. She has no other complaints. She denies any recent injury. PFSH Past Medical History Hx Anticoagulant Therapy: No Cancer: Yes (SKIN CANCER) Cardiovascular Problems: No Chemotherapy: No Cerebrovascular Accident: No Diabetes: No Diminished Hearing: Yes (issa hearing aids) Endocrine: No Gastrointestinal Disorders: Yes (GERD) GERD: Yes Genitourinary: No Hepatitis: No Hiatal Hernia: No Hypertension: Yes Immune Disorder: No Musculoskeletal: Yes (SCIATICA, NECK/BACK ISSUES) Neurologic: No Psychiatric: No Reproductive: No Respiratory: No Thyroid Disease: No ?: Not Past Surgical History Abdominal Surgery: Yes (GALLBLADDER SURGERY) AICD: No Cholecystectomy: Yes Genitourinary Surgery: Yes (BLADDER) Gynecologic Surgery: Yes (HYSTERECTOMY) Hysterectomy: Yes Joint Replacement: No Pacemaker: No Other Surgery: Yes (spinal decompression/ lamenectomy l4 03/17/17) Social History Alcohol Use: Yes (RARE) Tobacco Use: No Substance Use: No Allergies-Medications (Allergen,Severity, Reaction): Coded Allergies: Sulfa (Sulfonamide Antibiotics) (Unverified Allergy, Unknown, Rash, ) codeine (Unverified Allergy, Unknown, Nausea/Vomiting, 06/16/17) penicillin G (Unverified Allergy, Unknown, Rash, 06/16/17) Reported Meds & Prescriptions Reported Meds & Active Scripts Active Dilaudid (Hydromorphone HCl) 2 Mg Tab 2 Mg PO Q12HR PRN Medrol Dosepak (Methylprednisolone) 4 Mg Dspk 4 Mg PO DIRECTED Per Pharmacist direction Diclofenac Sodium DR (Diclofenac Sodium) 75 Mg Tabdr 75 Mg PO BID Dilaudid (Hydromorphone HCl) 2 Mg Tab 2 Mg PO Q4H PRN Gabapentin 300 Mg Cap 300 Mg PO BID Nitrostat SL (Nitroglycerin) 0.3 Mg Subl 0.3 Mg SL Q5M PRN Nexium (Esomeprazole DR) 40 Mg Capdr 40 Mg PO DAILY Reported Baclofen 20 Mg Tab 20 Mg PO TID Fioricet (Vztjezyzxw-Rsyffuupnwyan-Obnpvsfg) 50-300-40 Mg Cap 1 Cap PO Q4H PRN Aspirin 81 (Aspirin) 81 Mg Tabdr 81 Mg PO DAILY Norvasc (Amlodipine Besylate) 5 Mg Tab 5 Mg PO DAILY Aldactazide (HCTZ/Spironolactone) 25-25 Mg Tab 1 Tab PO DAILY Premarin (Estrogens Conjugated) 0.625 Mg Tab 0.625 Mg PO DAILY Review of Systems General / Constitutional: No: Fever Eyes: No: Visual changes HENT: No: Headaches Cardiovascular: No: Chest Pain or Discomfort Respiratory: No: Shortness of Breath Gastrointestinal: No: Abdominal Pain Genitourinary: No: Dysuria Musculoskeletal: Positive: Pain (lower back radiating to right leg) Skin: No Rash Neurologic: No: Weakness Psychiatric: No: Depression Endocrine: No: Polydipsia Hematologic/Lymphatic: No: Easy Bruising Physical Exam Narrative GENERAL: AAO x 3, no acute distress, Well-nourished, well-developed patient. SKIN: Warm and dry. No visible rashes or bruising. HEAD: Normocephalic and atraumatic. EYES: No scleral icterus. No injection or drainage. ENT: No nasal drainage noted. Mucous membranes pink. Airway patent. NECK: Supple, trachea midline. No JVD. CARDIOVASCULAR: Regular rate and rhythm without murmurs, gallops, or rubs. RESPIRATORY: Breath sounds equal bilaterally. No accessory muscle use. No rhonchi or rales. GASTROINTESTINAL: Abdomen soft, non-tender, nondistended. EXTREMITIES: No cyanosis or edema. SLR negative bilaterally BACK: Back brace in place .Nontender without obvious deformity. No step-off. No CVA tenderness. NEURO: CN II-12 intact, finisher special stocks strength normal b/l, UE and LE 5/5, no focal deficits PSYCH: AAO x 3, normal affect. Data Data Last Documented VS Vital Signs Date Time Temp Pulse Resp B/P (MAP) Pulse Ox O2 Delivery O2 Flow Rate FiO2 06/21/17 18:25 176/77 (110) 06/21/17 12:45 98.4 82 19 97 Room Air Orders Orders Mri L Spine W/O Contrast (06/21/17 ) Methylprednisolone So Succ Inj (Solumedr (06/21/17 17:00) Admit Order (Ed Use Only) (06/21/17 18:14) MDM Medical Decision Making Medical Screen Exam Complete: Yes Emergency Medical Condition: Yes Medical Record Reviewed: Yes Differential Diagnosis Acute on chronic back pain, lumbar radiculopathy, spinal stenosis, less likely cauda equina Narrative Course 86 yr old female here with acute on chronic back pain. I have discussed the case with my attending Dr. Choudhary, who recommends MRI. MRI reviewed and shows minimal increase in the bulge between L3-L4. I have discussed the finding with the patient I recommend outpatient f/u. She is ambulatory. She can resume home pain medications as prescribed and with caution. I have called ED lead case manager and they have discussed issues with patient. We will utilize home health and PT services. I advised patient to hold off on Dilaudid as it seems to make her too "loopy." She will continue her other home meds. Patient try to ablate around the emergency department and apparently had 8/10 pain with ambulation. We will admit her with intractable back pain for observation. Her daughter is an employee of rehabilitation and says that patient will get admitted there in the morning. I have discussed with Dr. Billingsley who will resume care of this patient. Diagnosis Primary Impression: Intractable low back pain Additional Impression: Back pain, chronic Qualified Codes: M54.41 - Lumbago with sciatica, right side; G89.29 - Other chronic pain Admitting Information Admitting Physician Requests: Admit Med/Other Pt SpecificInfo: No Change to Meds Disposition: 01 DISCHARGE HOME Condition: Stable Pippa Montero Jun 21, 2017 12:48
[2017-06-21] MEDS ORDERED: methylPREDNISolone SOD SUCC 125 MG/2 ML VIAL IM ONE (17:00)
--- NOTE | 2017-06-21 17:18 | RADRPT ---
EXAM DATE/TIME: 06/21/2017 16:14 [facility] COMPARISON: MRI LUMBAR SPINE W & W/O CONTRAST, April 03, 2017, 10:35. INDICATIONS : Pain. Pain radiating down right leg, back surgery 2 months ago. MEDICAL HISTORY : Hypertension. Hyperlipidemia. SURGICAL HISTORY : Fusion, lumbar. Cholecystectomy. Hysterectomy. Pedicle fusion L4-5. ENCOUNTER: Subsequent ACUITY: 4-6 days PAIN SCORE: 5/10 LOCATION: Lower back. TECHNIQUE: Multiplanar multisequence MRI of the lumbar spine was performed without contrast. FINDINGS: The most caudal appearing lumbar vertebra is numbered as L5. VERTEBRAE: Homogeneous signal. Normal alignment. CONUS: Normal level and configuration. T12-L1: The thecal sac has a normal diameter. No evidence of disc bulge or protrusion. The neural foramina are patent bilaterally. L1-L2: The thecal sac has a normal diameter. No evidence of disc bulge or protrusion. The neural foramina are patent bilaterally. L2-L3: Very minimal bulging eccentric to the right with with minimal neural foramen encroachment. L3-L4: Bulging is evident eccentric to the right with moderate encroachment right L3 nerve root. There are moderate degenerative changes in the facets. L4-L5: Fusion is seen at L4-L5 causing moderate artifact. There is minimal associated disc bulging evident causing some flattening of the anterior thecal space. There is minimal neuroforaminal encroachment w ith minimal anterolisthesis of L4 on L5. There are no inflammatory changes. These findings have imp roved from 04/03/17. L5-S1: Minimal eccentric bulging to the right with minimal encroachment right L5 root. S1 roots are normal. SI joints are normal. Facets unremarkable. CONCLUSION: Transpedicular fusion at L4-5 with improvement at the fused level. Minimal increase in the eccentric bulging L3-L4 to the right. Kedar Byrd MD FACR on June 21, 2017 at 17:12 Board Certified Radiologist. This report was verified electronically.
--- NOTE | 2017-06-21 17:47 | HHI.FF ---
Face to Face Verification Diagnosis: (1) Back pain Physical Therapy Order: Evaluate and Treat Home Health Nursing Order: Signs/symptoms of disease process Medication education-adverse effect Home Health Aide Order: To Assist In: Bathing and personal care, digital photographic printer and meal prep Slurry Control Operator Helper Order: To Evaluate: Living conditions/environment, Support services Order: To Provide: Long range planning I have seen patient Caridad Owens on 06/21/17. My clinical findings support the need for the requested home health care services because: Ltd mobility - disease progression Deconditioned w/ increased weakness Limited ability to care for self High risk of falls I certify that my clinical findings support that this patient is homebound because: Unsteady gait/balance Unsafe to leave home unassisted Brian Del Angel MD Jun 21, 2017 17:47
[2017-06-21 18:25] VITALS: BP 176/77
[2017-06-21 18:45] VITALS: O2SAT 97
[2017-06-21] MEDS ORDERED: ONDANSETRON HCL 4 MG/2 ML VIAL IVP PRN (18:45)
[2017-06-21] MEDS ORDERED: LACTULOSE SYRUP 20 GM/30 ML CUP PO PRN (18:45)
[2017-06-21] MEDS ORDERED: ACETAMINOPHEN 325 MG TAB PO PRN (18:45)
[2017-06-21] MEDS ORDERED: SENNOSIDES 8.6 MG TAB PO PRN (18:45)
[2017-06-21] MEDS ORDERED: NALOXONE HCL 0.4 MG/ML AMP IV PUSH PRN (18:45)
[2017-06-21] MEDS ORDERED: BISACODYL 10 MG SUPP RECTAL PRN (18:45)
[2017-06-21] MEDS ORDERED: SODIUM CHLORIDE 0.9% FLUSH 10 ML FLUSH IV FLUSH PRN (18:45)
[2017-06-21] MEDS ORDERED: MAGNESIUM HYDROXIDE SUSP 30 ML CUP PO PRN (18:45)
[2017-06-21] MEDS ORDERED: NITROGLYCERIN 0.3 MG SL 100 TABS/BTL SL PRN (19:15)
[2017-06-21] MEDS ORDERED: ACETAMIN 325 MG/BUTALBITAL 50 MG/CAFFEINE 40 MG TAB PO PRN (19:15)
--- NOTE | 2017-06-21 19:22 | HHI.PR ---
Subjective Remarks [id number] irretractable back pain rt. sided leg pain and weakness, debility Recent lumbar laminectomy HTN Objective Objective Results - Vital Signs Date Time Temp Pulse Resp B/P (MAP) Pulse Ox O2 Delivery O2 Flow Rate FiO2 06/21/17 18:45 97 21 06/21/17 18:25 176/77 (110) 06/21/17 12:45 98.4 82 19 176/77 (110) 97 Room Air 06/21/17 12:41 98.4 82 19 177/76 (109) 97 Physical Exam Physical Exam PHYSICAL EXAMINATION GENERAL: This is a well-developed, well-nourished female who appears to be in no acute distress. She is alert and awake, []. HEAD: Normocephalic without any lesion or mass noted. Facial features appear symmetric. OROPHARYNGEAL: Oropharynx without erythema or edema. NECK: Supple. No nuchal rigidity or lymphadenopathy. Trachea midline without deviation. CARDIAC: Regular rhythm, regular rate, S1 and S2 are heard. Murmur []; no gallops or rubs. LUNGS: Clear to auscultation bilaterally. [] wheeze, [] rhonchi or [] rale. No use of accessory muscles on inspiration or expiration. ABDOMEN: Soft, nontender, no organomegaly or masses. Bowel sounds are heard in all four quadrants. No rebound. No guarding. EXTREMITIES: [] edema. Pulses equal bilateral. [] cyanosis. NEUROLOGICAL: Patient mood and affect appropriate. No focal deficit SKIN:Warm and moist Shanta Reyna Jun 21, 2017 19:22
[2017-06-21 20:29] VITALS: BP 160/77; PULSE 60; RESP 18; TEMP 97.7; O2SAT 96
[2017-06-21 21:40] LABS: BACTERIA, URINE OCC /hpf; BLOOD, URINE NEG (NEG); COMMENT (UR) CULT NOT INDICATED; CULTURE IF INDICATED CULT NOT INDICATED; GLUCOSE,URINE NEG (NEG); KETONE, URINE NEG (NEG); NITRITE,URINE NEG (NEG); PH, URINE 7.5 (5.0-8.5); SQUAMOUS EPITHELIAL CELL URINE 1 /hpf (0-5); URINE COLOR LIGHT-YELLOW (YELLW/STRAW)
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
[2017-06-21] MEDS: GABAPENTIN 300 MG CAP PO SCH (22:32)
[2017-06-21] MEDS: DOCUSATE SODIUM 50 MG/SENNA 8.6 MG TAB PO SCH (22:33)
[2017-06-21] MEDS ORDERED: MORPHINE SULFATE 4 MG/ML INJ IV PUSH PRN (22:45)
[2017-06-21] MEDS: HEPARIN SODIUM - SQ 10,000 UNITS/ML VIAL SQ SCH (23:07)
[2017-06-21] MEDS: SODIUM CHLORIDE 0.9% FLUSH 10 ML FLUSH IV FLUSH SCH (23:08)
[2017-06-21 23:27] VITALS: BP 154/71; PULSE 62; RESP 18; TEMP 97.8; O2SAT 97
[2017-06-22] VITALS (8 sets, daily range): BP systolic 98–124; BP diastolic 56–67; PULSE 63–92; RESP 16–18; TEMP 97.8–98.7; O2SAT 92–97
[2017-06-22] MEDS: MORPHINE SULFATE 4 MG/ML INJ IV PUSH PRN ×2 (00:19→21:04)
--- NOTE | 2017-06-22 07:30 | HHI.PR ---
Subjective Remarks resting in bed more rested this am pain management effective awake daughter briefly in . Objective Objective Results - Vital Signs Date Time Temp Pulse Resp B/P (MAP) Pulse Ox O2 Delivery O2 Flow Rate FiO2 06/22/17 05:33 21 06/22/17 04:42 98.5 63 18 98/62 (74) 95 06/22/17 00:54 12 06/21/17 23:27 97.8 62 18 154/71 (98) 97 06/21/17 23:17 16 06/21/17 20:29 97.7 60 18 160/77 (104) 96 06/21/17 19:32 06/21/17 18:45 97 21 06/21/17 18:25 176/77 (110) 06/21/17 12:45 98.4 82 19 176/77 (110) 97 Room Air 06/21/17 12:41 98.4 82 19 177/76 (109) 97 I/O 06/21/17 06/21/17 06/21/17 06/22/17 06/22/17 06/22/17 07:00 15:00 23:00 07:00 15:00 23:00 Intake Total 200 ml Balance 200 ml Intake Oral 200 ml ROS General: Weakness, Other (10 point ROS done positives noted) Neuro/MS: Other (back pain right side) Physical Exam Physical Exam PHYSICAL EXAMINATION GENERAL: This is a well-developed elderly female resting in the bed She is alert and awake HEAD: Normocephalic , atraumatic Facial features appear symmetric. OROPHARYNGEAL: Oropharynx without erythema or edema. NECK: Supple. No nuchal rigidity or lymphadenopathy. Trachea midline without deviation. CARDIAC: Regular rhythm, regular rate, S1 and S2 are heard. LUNGS: Clear to auscultation bilaterally , no shortness of breath at rest ABDOMEN: Soft, nontender, also sounds active EXTREMITIES: Minimal mild left lower leg edema. Touch NEUROLOGICAL: Patient mood and affect appropriate. No focal deficit SKIN:Warm and dry A/P Assessment and Plan 1. Back pain, acute on chronic, irretractable. She is recent status post lumbar laminectomy in March of 2017. 2. Hypertension. 3. Pain, uncontrolled. 4. Mild hyperglycemia in the presence of non-diabetic. 5. Debility. 6. Pain with ambulation. vital signs reviewed, afebrile , BP lower trends with pain management and sleep , but when awake systolic back up to 117 labs pending, U/A normal , no culture needed. Pain management, controlled with IV pain meds, patient slept and was more comfortable last night, states she still has some mild pain this morning around 3-4, doesn't want it to get worse again. Will increase activity to out of bed, physical therapy pending. Hypertension controlled, meds have been reconciled on admission. Monitor systolic pressure with IV pain management Debility, case management consult pending to see if patient qualifies to go back to an [place] [facility], which is the patient and family's request D/W Dr. Howell, seen on his behalf D/W patient and her daughter Shanta ReynaMaritza GLASS Jun 22, 2017 07:30
[2017-06-22] MEDS: SODIUM CHLORIDE 0.9% FLUSH 10 ML FLUSH IV FLUSH SCH ×2 (09:00→21:04)
[2017-06-22] MEDS: ASPIRIN EC 81 MG TABEC PO SCH (09:00)
[2017-06-22] MEDS: amLODIPine BESYLATE 5 MG TAB PO SCH (09:00)
[2017-06-22] MEDS ORDERED: SPIRONOLACTONE/HCTZ 25 MG/25 MG TAB PO SCH (09:00)
[2017-06-22] MEDS: HYDROCHLOROTHIAZIDE 25 MG TAB PO SCH (11:00)
[2017-06-22] MEDS: PANTOPRAZOLE SOD 40 MG DELAYED RELEASE TAB PO SCH (11:37)
[2017-06-22] MEDS: ESTROGENS CONJUGATED 0.625 MG TAB PO SCH (11:37)
[2017-06-22] MEDS: GABAPENTIN 300 MG CAP PO SCH ×2 (11:37→21:04)
[2017-06-22] MEDS: SPIRONOLACTONE 25 MG TAB PO SCH (11:38)
[2017-06-22] MEDS: BACLOFEN 20 MG TAB PO SCH ×3 (11:38→18:30)
[2017-06-22] MEDS: DOCUSATE SODIUM 50 MG/SENNA 8.6 MG TAB PO SCH ×2 (11:42→21:04)
[2017-06-22] MEDS: HEPARIN SODIUM - SQ 10,000 UNITS/ML VIAL SQ SCH ×2 (11:52→21:04)
[2017-06-22 12:28] LABS: HEMATOCRIT 46.4 % (35.0-46.0); MEAN CELL VOLUME 92.2 FL (80.0-100.0); MEAN CORPUSCULAR HEMOGLOBIN 30.9 PG (27.0-34.0); MEAN CORPUSCULAR HGB CONC 33.5 % (32.0-36.0); PLATELET COUNT 334 TH/MM3 (150-450); RED BLOOD COUNT 5.03 MIL/MM3 (4.00-5.30); RED CELL DISTRIBUTION WIDTH 13.9 % (11.6-17.2); REVIEW FLAG FINAL; WHITE BLOOD COUNT 11.8 TH/MM3 (4.0-11.0)
[2017-06-22 12:49] LABS: BICARBONATE 28.8 MEQ/L (21.0-32.0); POTASSIUM 3.2 MEQ/L (3.5-5.1)
[2017-06-22] MEDS ORDERED: ACETAMINOPHEN/HYDROcodone 325 MG/5 MG TAB PO PRN (18:00)
[2017-06-23] MEDS: MORPHINE SULFATE 4 MG/ML INJ IV PUSH PRN ×2 (00:21→04:52)
[2017-06-23 04:03] VITALS: BP 150/67; PULSE 62; RESP 18; TEMP 97.8; O2SAT 97
[2017-06-23 08:07] VITALS: BP 134/71; PULSE 73; RESP 17; TEMP 98.2; O2SAT 96
[2017-06-23] MEDS ORDERED: POTASSIUM CHLORIDE 25 MEQ EFFERVESCENT TAB PO ONE (08:45)
[2017-06-23] MEDS: ESTROGENS CONJUGATED 0.625 MG TAB PO SCH (08:54)
[2017-06-23] MEDS: HEPARIN SODIUM - SQ 10,000 UNITS/ML VIAL SQ SCH (08:54)
[2017-06-23] MEDS: ASPIRIN EC 81 MG TABEC PO SCH (08:54)
[2017-06-23] MEDS: HYDROCHLOROTHIAZIDE 25 MG TAB PO SCH ×2 (08:55→08:56)
[2017-06-23] MEDS: GABAPENTIN 300 MG CAP PO SCH (08:55)
[2017-06-23] MEDS: SODIUM CHLORIDE 0.9% FLUSH 10 ML FLUSH IV FLUSH SCH (08:55)
--- NOTE | 2017-06-23 08:55 | HHI.PR ---
Subjective Subjective Remarks Indicates the pain is not well controlled on IV morphine Unable to take [place] because she becomes very nauseous due to the codeine Indicates that by mouth Ruba worked during April admission Asking about discharge plan, wants to go to [facility]. Requesting that I speak to her daughter who works at that facility No chest pain No shortness of breath Moved her bowels yesterday Review of Systems Constitutional Constitutional Remarks 12 point review of systems completed, negative except as noted above Vitals/Results Vital Signs Vital Signs Date Time Temp Pulse Resp B/P (MAP) Pulse Ox O2 Delivery O2 Flow Rate FiO2 06/23/17 08:07 98.2 73 17 134/71 (92) 96 06/23/17 06:53 16 06/23/17 05:20 18 06/23/17 04:03 97.8 62 18 150/67 (94) 97 06/22/17 23:59 97.9 69 18 124/67 (86) 96 06/22/17 20:43 94 21 06/22/17 20:08 97.8 83 18 114/56 (75) 96 06/22/17 17:30 98.7 92 16 110/66 (81) 96 06/22/17 14:27 97.8 75 16 108/60 (76) 97 CBC/BMP: 06/22/17 1127 06/22/17 1127 Lab Results Laboratory Tests Test 06/22/17 11:27 White Blood Count 11.8 TH/MM3 Red Blood Count 5.03 MIL/MM3 Hemoglobin 15.5 GM/DL Hematocrit 46.4 % Mean Corpuscular Volume 92.2 FL Mean Corpuscular Hemoglobin 30.9 PG Mean Corpuscular Hemoglobin Concent 33.5 % Red Cell Distribution Width 13.9 % Platelet Count 334 TH/MM3 Mean Platelet Volume 10.1 FL Blood Urea Nitrogen 16 MG/DL Creatinine 0.76 MG/DL Random Glucose 121 MG/DL Calcium Level 9.1 MG/DL Sodium Level 137 MEQ/L Potassium Level 3.2 MEQ/L Chloride Level 101 MEQ/L Carbon Dioxide Level 28.8 MEQ/L Anion Gap 7 MEQ/L Estimat Glomerular Filtration Rate 73 ML/MIN Physical Exam General General Appearance: Well Developed, Well Nourished, No Acute Distress, Comfortable Eyes Eye Exam: Pupils Equal, Pupils Reactive Ears & Nose Ears & Nose Exam: Nasal Mucosa Halsey Throat Throat Exam: Oral Mucosa Halsey & Moist Neck Neck Exam: Neck Supple, Trachea Midline Pulmonary Resp Exam: Breath Sounds Equal Cardiology CV Exam: Regular, Good Perfusion Gastrointestinal/Abdomen GI Exam: Soft, Non-Tender, Bowel Sounds Present, Non-Distended Musculoskeletal MS Exam: Joints Intact Integumentary Skin Exam: Warm, Dry, Intact Extremeties Extremities Exam: No Edema, Pedal Pulses Palpable Neurologic Neuro Exam: Alert, Awake, Oriented, Speech Clear, Moving All Extremities, No Focal Deficits Psychiatric Psych Exam: Appropriate Responses VTE Prophylaxis VTE Prophylaxis Device: SCDs VTE Prophylaxis Meds: Heparin PUD Prophylasis PUD Prophylaxis: Protonix Assessment/Plan Assessment/Plan 1. Back pain, acute on chronic, irretractable. She is recent status post lumbar laminectomy in March of 2017. 2. Hypertension. 3. Pain, uncontrolled. 4. Mild hyperglycemia in the presence of non-diabetic. 5. Debility. 6. Pain with ambulation. Plan: We'll discontinue [place] and IV morphine Will start Dilaudid 2 mg by mouth every 6 when necessary for severe pain 6-10 Continue with baclofen Continue wearing brace when out of bed Physical therapy for evaluation Consult neurosurgery, patient known to Dr. Smith. Daughter very anxious and requesting consultation. Continue with blood pressure medications Well-controlled now Continue with heparin for DVT prophylaxis, PPI for GI prophylaxis Case management consultation for discharge planning, apparently she has been declined by [facility] and TCU doesn't have any beds at this time. Discussed with daughter Katelynn at length, indicates that she will discuss with case management at [facility] to facilitate a bed for her mother. States that her mother cannot go home she cannot take care of herself and the pain has become so severe. 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 Daughter very upset and anxious, demanding consultation with Dr. Smith. Indicates that this pain is new and requires further investigation Discharge planning in progress, possible discharge today if a bed in TCU becomes available. Discussed with RN Discussed with patient and daughter Discussed with case management Discussed with Dr. Howell This patient was seen by myself and Dr. Howell, this note is written on his behalf Hannah Cao Jun 23, 2017 08:55
[2017-06-23] MEDS: SPIRONOLACTONE 25 MG TAB PO SCH (08:56)
[2017-06-23] MEDS: amLODIPine BESYLATE 5 MG TAB PO SCH (08:56)
[2017-06-23] MEDS: PANTOPRAZOLE SOD 40 MG DELAYED RELEASE TAB PO SCH (08:56)
[2017-06-23] MEDS: BACLOFEN 20 MG TAB PO SCH ×2 (08:56→13:19)
[2017-06-23] MEDS: DOCUSATE SODIUM 50 MG/SENNA 8.6 MG TAB PO SCH (08:56)
[2017-06-23] MEDS ORDERED: HYDROmorphone HCL 2 MG TAB PO PRN (09:00)
[2017-06-23] MEDS ORDERED: PNEUMOCOCCAL POLYVALENT INJ 25 MCG/0.5 ML SYR IM ONE (10:00)
--- NOTE | 2017-06-23 10:37 | HHI.DCPOC ---
Discharge Care Plan Diagnosis: (1) Intractable low back pain (2) S/P lumbar laminectomy Your Health Problems Are: Difficulty with ADL Goals to Promote Your Health * To prevent worsening of your condition and complications * To maintain your health at the optimal level Directions to Meet Your Goals Take your medications as prescribed Follow your dietary instruction Follow activity as directed Keep your appointments as scheduled Take your immunizations and boosters as scheduled If your symptoms worsen call your PCP, if no PCP go to Urgent Care Center or Emergency Room Smoking is Dangerous to Your Health. Avoid second hand smoke Call the 24-hour hour crisis hotline for domestic abuse at Hannah Cao. [facility] Jun 23, 2017 10:37
[2017-06-23 12:15] VITALS: BP 104/60; PULSE 62; RESP 18; TEMP 97.5; O2SAT 92
--- NOTE | 2017-06-23 13:51 | HHI.NSPN ---
(Desi Nunez) Note Status Status: Progress Note (Desi Nunez) Interval History Interval History Ms. Owens is a 86 year old female who underwent a redo L4-5 laminectomy with interbody arthrodeses using PEEK cage bone graft, posterolateral fixation with transpedicular screws and rods on 04/03/17. Ms. Owens at her last post-op follow up was doing very well with improvement of her previous radicular pain. Unfortunately she developed recurrent pain radiating down her right lower extremity. She has had multiple ED visits for back pain. She is currently being managed with narcotic pain medications. An MRI and CT of the lumbar spine has been completed. Neurosurgery was asked to evaluate. (Desi Nunez) Labs, Micro, & Vital Signs Results Date Time Temp Pulse Resp B/P (MAP) Pulse Ox O2 Delivery O2 Flow Rate FiO2 06/23/17 12:15 97.5 62 18 104/60 (75) 92 06/23/17 10:49 18 06/23/17 08:07 98.2 73 17 134/71 (92) 96 06/23/17 06:53 16 06/23/17 05:20 18 06/23/17 04:03 97.8 62 18 150/67 (94) 97 06/22/17 23:59 97.9 69 18 124/67 (86) 96 06/22/17 20:43 94 21 06/22/17 20:08 97.8 83 18 114/56 (75) 96 06/22/17 17:30 98.7 92 16 110/66 (81) 96 06/22/17 14:27 97.8 75 16 108/60 (76) 97 Last Impressions Lumbar Spine MRI 06/21/17 0000 Signed Impressions: Service Date/Time: Wednesday, June 21, 2017 16:14 - CONCLUSION: Transpedicular fusion at L4-5 with improvement at the fused level. Minimal increase in the eccentric bulging L3-L4 to the right. Kedar Byrd MD FACR CT Lumbar spine [place] FINDINGS: Sagittal and coronal reconstructions demonstrate transpedicular posterior fixation at L4-5 the intervertebral disc prostheses. Minimal grade 1 anterolisthesis of L3 on 4 and L4 on 5. Multilevel degenerative disc disease with diffuse disc bulges encroaching on the intervertebral space. However, spinal canal is adequate throughout with no central nerve root compromise. Vacuum disc phenomenon at L1-2 with bilateral vacuum joint phenomenon the SI joints. 2.2 cm low-density nodule in the left adrenal gland. Degenerative images are as follows: T12-L1: Spinal canal and neural foramina are patent L1-L2: Mild, diffuse disc bulge with vacuum disc phenomenon. Spinal canal and neural foramina are patent L2-L3: Mild, diffuse disc bulge. Spinal canal and neural foramina are patent. L3-L4: Mild, diffuse disc bulge with a posterior component encroaching on the intervertebral space. Spinal canal and neural foramina remain adequate.. L4-L5: Posteriorly fixated level with laminectomy. Spinal canal and neural foramina are adequate although anatomic detail is limited by beam hardening artifact from the regional hardware. L5-S1: Facet hypertrophy with mild, diffuse disc bulge. Canal and neural foramina remain patent. Constitutional Vital Signs Date Time Temp Pulse Resp B/P (MAP) Pulse Ox O2 Delivery O2 Flow Rate FiO2 06/23/17 12:15 97.5 62 18 104/60 (75) 92 06/23/17 10:49 18 06/23/17 08:07 98.2 73 17 134/71 (92) 96 06/23/17 06:53 16 06/23/17 05:20 18 06/23/17 04:03 97.8 62 18 150/67 (94) 97 06/22/17 23:59 97.9 69 18 124/67 (86) 96 06/22/17 20:43 94 21 06/22/17 20:08 97.8 83 18 114/56 (75) 96 06/22/17 17:30 98.7 92 16 110/66 (81) 96 06/22/17 14:27 97.8 75 16 108/60 (76) 97 (Desi Nunez) Review of Systems Constitutional: DENIES: Fever Respiratory: DENIES: Wheezing, Shortness of breath Cardiovascular: DENIES: Chest pain Genitourinary: DENIES: Urinary incontinence Musculoskeletal: COMPLAINS OF: Back pain Neurologic: COMPLAINS OF: Abnormal gait (due to pain), Paresthesias, DENIES: Headache (Desi Nunez) Physical Exam Ms. Owens is alert, awake and oriented. Speech is fluent. Conversing well. Lumbar wound is healing well, no redness, drainage, warmth or other signs of infection. Cranial nerve examination: pupils equal. Facial motor are normal and symmetrical. Neck is soft and supple Muscle strength is normal in all muscle groups of both upper and lower extremities. (Desi Nunez) Medications Current Medications Current Medications Medications (Trade) Dose Ordered Sig/Raysa Route PRN Reason Start Time Stop Time Status Last Admin Dose Admin Sodium Chloride (NS Flush) 2 ml UNSCH PRN IV FLUSH FLUSH AFTER USING IV ACCESS 06/21/17 18:45 Sodium Chloride (NS Flush) 2 ml BID IV FLUSH 06/21/17 21:00 06/23/17 08:55 Acetaminophen (Tylenol) 650 mg Q4H PRN PO TEMP > 100.4 06/21/17 18:45 06/23/17 05:46 Ondansetron HCl (Zofran Inj) 4 mg Q6H PRN IVP NAUSEA OR VOMITING 06/21/17 18:45 Heparin Sodium (Porcine) (Heparin Inj) 5,000 units Q12H SQ 06/21/17 20:00 06/23/17 08:54 Naloxone HCl (Narcan Inj) 0.4 mg UNSCH PRN IV PUSH SEE LABEL COMMENTS 06/21/17 18:45 Senna/Docusate Sodium (Nadege-Colace) 1 tab BID PO 06/21/17 21:00 06/23/17 08:56 Magnesium Hydroxide (Milk Of Magnesia Liq) 30 ml Q12H PRN PO MILD - MODERATE CONSTIPATION 06/21/17 18:45 Sennosides (Senokot) 17.2 mg Q12H PRN PO MODERATE - SEVERE CONSTIPATION 06/21/17 18:45 06/21/17 22:33 Bisacodyl (Dulcolax Supp) 10 mg DAILY PRN RECTAL SEVERE CONSITIPATION 06/21/17 18:45 Lactulose (Lactulose Liq) 30 ml DAILY PRN PO SEVERE CONSITIPATION 06/21/17 18:45 Amlodipine Besylate (Norvasc) 5 mg DAILY PO 06/22/17 09:00 06/23/17 08:56 Aspirin (Ecotrin Ec) 81 mg DAILY PO 06/22/17 09:00 06/23/17 08:54 Baclofen (Lioresal) 20 mg TID PO 06/22/17 09:00 06/23/17 13:19 Estrogens Conjugated (Premarin) 0.625 mg DAILY PO 06/22/17 09:00 06/23/17 08:54 Gabapentin (Neurontin) 300 mg BID PO 06/21/17 21:00 06/23/17 08:55 Nitroglycerin (Nitrostat Sl) 0.3 mg Q5M PRN SL CHEST PAIN 06/21/17 19:15 Acetaminophen/ Butalbital/ Caffeine (Fioricet 325-50-40) 1 tab Q4H PRN PO HEADACHE 06/21/17 19:15 06/21/17 22:32 Pantoprazole Sodium (Protonix) 40 mg DAILY PO 06/22/17 09:00 06/23/17 08:56 Hydrochlorothiazide (Hydrodiuril) 25 mg DAILY PO 06/22/17 11:00 06/23/17 08:56 Spironolactone (Aldactone) 25 mg DAILY PO 06/22/17 11:00 06/23/17 08:56 Hydromorphone HCl (Dilaudid) 2 mg Q6H PRN PO PAIN SCALE 6 TO 10 06/23/17 09:00 06/23/17 09:49 (Desi Nunez) Medical Decision Making MDM Remarks 86 y/o female recent redo L4-5 laminectomy with interbody arthrodeses using PEEK cage bone graft, posterolateral fixation with transpedicular screws and rods on 04/03/17 presented for intractable lumbar pain, right lower extremity pain (Desi Nunez) Plan Plan Remarks MRI and CT Lumbar spine reviewed by Dr. Smith - no further surgical intervention recommended at this time, will refer patient to Dr. Master Hanna, Pain Specialist outpatient cont TLSO when out of bed cont pain control cont therapy clear to dc from NRS standpoint will sign off, call prn (Desi Nunez) Attending Statement The exam, history, and the medical decision-making described in the above note were completed with the assistance of the mid-level provider. I reviewed and agree with the findings presented. I attest that I had a [id number] encounter with the patient on the same day, and personally performed and documented my assessment and findings in the medical record. (John Smith MD) Desi Nunez Jun 23, 2017 13:51 John Smith MD Jun 27, 2017 17:48
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
[2017-06-23] MEDS ORDERED: DILA2TAB2 PO (18:53)
== END 2017-06-23 18:52 | disposition home or self-care (01) ==
LOC: NEPD 12:30 → NEDA 18:15 → NEPGCP 19:40
PROVIDERS: ADMIT Specialist; ATTEND Specialist
DX: M54.41 Lumbago with sciatica, right side (principal); M21.372 Foot drop, left foot; G89.29 Other chronic pain; I10 Essential (primary) hypertension; K21.9 Gastro-esophageal reflux disease without esophagitis; H91.90 Unspecified hearing loss, unspecified ear; K59.00 Constipation, unspecified; R73.9 Hyperglycemia, unspecified; Z98.890 Other specified postprocedural states; Z85.828 Personal history of other malignant neoplasm of skin
CPT/HCPCS: 72148; 80048; 81001; 85027; 96372; 96374; 96376; 97162; 97530; 99285; G0378; G8987; J1644; J2270